=== PATIENT | male | born 1955 | race Caucasian/White ===

== ENCOUNTER 2021-04-06 07:33 | Outpatient (REF) | payer OTHER, SELFPAY ==
[2021-04-06 12:12] LABS: Alanine Aminotransferase 35 U/L (0-40); Albumin Level 4.2 g/dL (3.5-5.0); Alkaline Phosphatase 60 U/L (39-117); Anion Gap 18 (12-20); Aspartate Amino Transferase 31 U/L (5-37); Bilirubin Total 0.6 mg/dL (0.0-1.0); Blood Urea Nitrogen 23 mg/dL (9-16); Calcium 9.3 mg/dL (8.4-10.2); Carbon Dioxide 20 mmol/L (22-29); Chloride 105 mmol/L (96-108); Cholesterol 192 mg/dL; Estimated Glomerular Filt Rate > 60; Glucose Fasting 87 mg/dL (60-99); HDL Cholesterol 71 mg/dL; LDL Cholesterol Calculated 99 mg/dl; Potassium 4.3 mmol/L (3.3-5.1); Prostate Specific Antigen Scr 0.52 ng/mL (<0.05-4.0); Sodium 139 mmol/L (135-145); TSH reflex Free T4 1.18 uIU/mL (0.32-4.0); Total Protein 7.1 g/dL (6.5-8.0); Triglycerides 111 mg/dL
== END 2021-04-06 07:34 | disposition home or self-care (01) ==
LOC: HO.HMGCLDS 07:33
PROVIDERS: PCP Nurse Practitioner Family; Visit Provider Nurse Practitioner Family
DX: Z00.00 Encounter for general adult medical examination without abnormal findings (principal); Z12.5 Encounter for screening for malignant neoplasm of prostate
CPT/HCPCS: 36415; 80053; 80061; 84153; 84443

== ENCOUNTER 2021-10-26 09:45 | Day surgery (SDC) | payer OTHER, SELFPAY ==
[2021-10-20 11:11] VITALS: BMI 25.4
--- NOTE | 2021-10-25 10:55 | HO.ANESPROP2 ---
Documented by User: Charlene Barboza NP 10/25/21 10:57 HPI - Anesthesia Eval Consult details Narrative: 66yo M for Colonoscopy Daily opioids PMFSH Active Problems Active Problems: All Active Problems (Updated 10/25/21 @ 10:01 by Carla Tobin RN) Hyperlipidemia, unspecified (Acute) Jaw pain (Acute) Past Medical History Medical History Anxiety Elevated cholesterol HTN (hypertension) IBS (irritable bowel syndrome) Surgical History Surgical History History of appendectomy Hx of colonoscopy Hx of hand surgery Hx of tonsillectomy Hx of umbilical hernia repair Social History Social History Patient Tobacco Use Status: Former Tobacco user Tobacco use type: Cigarette Years Smoked: 30 Smoked in Last 30 Days: No Use of substances other than those prescribed or required for medical reasons: No Are you DNR?: No Advance Directives: No Advance Directives Information Provided: Yes Meds Allergies Allergy/AdvReac Type Severity Reaction Status Date / Time No Known Allergies Allergy Verified 10/26/21 10:03 Home Medications Medication Instructions Recorded Confirmed Last Taken Type oxycodone 10 mg tablet 10 mg PO BEDTIME 03/24/21 Unknown History loperamide 2 mg capsule mg PO 10/25/21 10/25/21 Unknown History Exam Exam Date and Time: October 25, 2021 1055 Height,Weight and Vital Signs: Height 5 ft 8 in Weight 75.75 kg Pertinent Lab Results Pertinent Lab Results: Laboratory Tests 10/03/18 04/06/21 10:04 07:40 WBC 5.4 Hgb 13.2 L Hct 39.1 L Plt Count 215 Sodium 139 Potassium 4.3 Chloride 105 Carbon Dioxide 20 L BUN 23 H Creatinine 0.98 Assessment and Plan Assessment Anesthesia Assessment: Chart Reviewed Documented by User: Bernice Puente MD 10/26/21 10:32 PMFSH Past Medical History Medical History Anxiety Elevated cholesterol HTN (hypertension) IBS (irritable bowel syndrome) Functional capacity: independent ambulation Family History Family history of problems with anesthesia: No Surgical History Surgical History History of appendectomy Hx of colonoscopy Hx of hand surgery Hx of tonsillectomy Hx of umbilical hernia repair History of Problems with Anesthesia: No Social History Social History Patient Tobacco Use Status: Former Tobacco user Tobacco use type: Cigarette Years Smoked: 30 Smoked in Last 30 Days: No Use of substances other than those prescribed or required for medical reasons: No Are you DNR?: No Advance Directives: No Advance Directives Information Provided: Yes Meds Allergies Allergy/AdvReac Type Severity Reaction Status Date / Time No Known Allergies Allergy Verified 10/26/21 10:03 Home Medications Medication Instructions Recorded Confirmed Last Taken Type oxycodone 10 mg tablet 10 mg PO BEDTIME 03/24/21 Unknown History loperamide 2 mg capsule mg PO 10/25/21 10/25/21 Unknown History Exam Airway Mallampati Class: II TM Dist: >3cm Neck ROM: Full Heart: RRR Lungs: CTA Assessment and Plan Final Anesthetic Review Family History of Problems with Anesthesia: No History of Problems with Anesthesia: No ASA Class: II Final Preanesthetic Review: No Changes in Pt Med Stat, Meds/Allgs Chart Reviewed, Consent Obtained/Reviewed and Anes Risks/Benef Reviewed Patient Risk: Low Procedure Risk: Low Anesthetic Plan Anesthetic Plan: MAC: Disposition: Standard PACU
[2021-10-26 10:04] VITALS: BMI 24.3
[2021-10-26 10:10] VITALS: BP 136/88; PULSE 81; RESP 16; TEMP 37.5; O2SAT 98
[2021-10-26] MEDS: Lactated Ringers 1,000 ML 100 ML IVCONT (10:22)
--- NOTE | 2021-10-26 10:34 | MHC.SHP ---
Pre-Procedural Eval Section A Date of Service: 10/26/21 The patient is an INPATIENT: No Changes since office visit: No Cold of Flu in the past 2 weeks, No New Medical Problems, No Changes in Medication and No Patient answered all questions The History & Physical has been completed within 30 days and I have reviewed it.: Yes Section B Chief Complaint: screening Allergies: Allergies Allergy/AdvReac Type Severity Reaction Status Date / Time No Known Allergies Allergy Verified 10/26/21 10:03 Plan I have reviewed the history and physical and performed a pertinent physical examination on my patient. No changes have occurred unless specified.
--- NOTE | 2021-10-26 10:53 | HO.ANESPROP2 ---
[facility] Active Problems Active Problems: All Active Problems (Updated 10/25/21 @ 10:01 by Carla Tobin RN) Hyperlipidemia, unspecified (Acute) Jaw pain (Acute) Past Medical History Medical History Anxiety Elevated cholesterol HTN (hypertension) IBS (irritable bowel syndrome) Functional capacity: independent ambulation Family History Family history of problems with anesthesia: No Surgical History Surgical History History of appendectomy Hx of colonoscopy Hx of hand surgery Hx of tonsillectomy Hx of umbilical hernia repair History of Problems with Anesthesia: No Social History Social History Patient Tobacco Use Status: Former Tobacco user Tobacco use type: Cigarette Years Smoked: 30 Smoked in Last 30 Days: No Use of substances other than those prescribed or required for medical reasons: No Are you DNR?: No Advance Directives: No Advance Directives Information Provided: Yes Meds Allergies Allergy/AdvReac Type Severity Reaction Status Date / Time No Known Allergies Allergy Verified 10/26/21 10:03 Active Medications: Current Medications Lactated Ringer's (Lr) 1,000 mls @ 100 mls/hr IVCONT .Q10H NEO Last Admin: 10/26/21 10:22 Dose: 100 mls/hr Documented by: Home Medications Medication Instructions Recorded Confirmed Last Taken Type oxycodone 10 mg tablet 10 mg PO BEDTIME 03/24/21 Unknown History loperamide 2 mg capsule mg PO 10/25/21 10/25/21 Unknown History Exam Exam Date and Time: October 26, 2021 1053 Height,Weight and Vital Signs: Height 5 ft 8 in Weight 72.575 kg Last Vital Signs Temp 99.5 F 10/26/21 10:10 Pulse 81 10/26/21 10:10 Resp 16 10/26/21 10:10 BP 136/88 10/26/21 10:10 Pulse Ox 98 10/26/21 10:10 Airway Mallampati Class: II TM Dist: >3cm Denture: Upper Heart: RRR Lungs: CTA Assessment and Plan Final Anesthetic Review Family History of Problems with Anesthesia: No History of Problems with Anesthesia: No ASA Class: II Final Preanesthetic Review: No Changes in Pt Med Stat, Meds/Allgs Chart Reviewed, Consent Obtained/Reviewed and Anes Risks/Benef Reviewed Patient Risk: Low Procedure Risk: Low Anesthetic Plan Anesthetic Plan: MAC: Disposition: Standard PACU
--- NOTE | 2021-10-26 11:18 | P.BOP_ITS ---
Brief Operative Note Date of Service: 10/26/21 Pre-op diagnosis: screening Post-op diagnosis: same (colon polyp) Surgeon: Jose Juarez Anesthesia: MAC Was an Fulfillment Specialist used for this Procedure?: No Estimated blood loss (mL): 2 Pathology: other (polyp 90cm) Condition: stable Disposition: PACU
[2021-10-26 11:22] VITALS: BP 92/58; PULSE 68; RESP 16; TEMP 36.1; O2SAT 96
[2021-10-26 11:40] VITALS: BP 128/74; PULSE 62; RESP 18; TEMP 36.2; O2SAT 97
--- NOTE | 2021-10-26 14:11 | OP_ITS ---
SURGEON: Jose Juarez MD INDICATIONS: Colon cancer screening. PREOPERATIVE DIAGNOSIS: POSTOPERATIVE DIAGNOSIS: PROCEDURE PERFORMED: Colonoscopy to the terminal ileum with snare polypectomy and biopsy. ESTIMATED BLOOD LOSS: COMPLICATIONS: ANESTHESIA: ASSISTANTS: SPECIMENS: MEDICATIONS: Monitored anesthesia care. DESCRIPTION OF PROCEDURE: History and physical performed. The risks and benefits of the procedure were explained to the patient. Informed consent was obtained and the patient placed in left lateral decubitus position. A digital rectal exam was performed and was found to be normal. The Olympus pediatric video colonoscope was introduced into the rectum and advanced to the cecum without difficulty. The cecum was identified by transillumination, palpation, and identification of ileocecal valve. Abdominal wall pressure was used to assist in advancement of the scope due to looping in the sigmoid. Examination was performed. The scope was removed. He tolerated the procedure well and was taken to recovery area in stable condition. FINDINGS: The terminal ileum was examined and appeared normal. The visualized colonic mucosa was normal. The quality of the prep was good at 90 cm from the anal verge, was a polypoid lesion measuring approximately 10 mm. Initially thought to be a lipoma. This was biopsied, but subsequently was snared and completely removed. No other polyps were identified. Retroflexed examination showed small internal hemorrhoids. IMPRESSION: Colon polyp. RECOMMENDATION: Follow up the biopsy results. MD FELY Lynch/SIS / [id number]
== END 2021-10-26 12:22 | disposition home or self-care (01) ==
PROVIDERS: Visit Provider Internal Medicine Gastroenterology
PROC: 0DJD8ZZ Inspection of Lower Intestinal Tract, Via Natural or Artificial Opening Endoscopic (ICD-10-PCS; CPT 45378; principal; 2021-10-26 11:10)
DX: Z12.11 Encounter for screening for malignant neoplasm of colon (principal); Z86.010 Personal history of colon polyps; D12.3 Benign neoplasm of transverse colon; K64.8 Other hemorrhoids; K58.0 Irritable bowel syndrome with diarrhea; I10 Essential (primary) hypertension; E78.00 Pure hypercholesterolemia, unspecified; F41.1 Generalized anxiety disorder; Z79.899 Other long term (current) drug therapy; Z87.891 Personal history of nicotine dependence
CPT/HCPCS: 45385; 45380; 88305

== ENCOUNTER 2022-01-25 08:49 | Outpatient (REF) | payer OTHER, SELFPAY ==
--- NOTE | ~2022-01-25 | XR_ITS ---
EXAMINATION: XR KNEE, RIGHT CLINICAL INFORMATION: Right knee pain COMPARISON: None TECHNIQUE: Four views of the right knee. FINDINGS: Bone alignment is normal. No fracture or dislocation is seen. There are small osteophytes at the medial femoral tibial joint. Joint spaces are otherwise normal. There is no joint effusion. XR/XR knee RT 3V IMPRESSION: Small osteophytes at the medial femoral tibial joint otherwise unremarkable exam.
[2022-01-25 12:09] LABS: HIV AB/AG Nonreactive (Nonreactive); HIV Num 1 0.08 S/CO (0.00-0.99)
[2022-01-25 12:22] LABS: Appearance Urine CLEAR; Color Urine YELLOW; Glucose Urine UA NEG (NEG); Leukocyte Esterase Urine NEG (NEG); Nitrite Urine NEG (NEG); PH 5.5 (5.0-8.0); Specific Gravity - Urine 1.025 (1.005-1.025); Urine Blood NEG (NEG); Urine Ketones NEG (NEG); Urine Protein NEG (NEG-TRACE)
[2022-01-25 13:58] LABS: CT PCR NOT DETECTED (Not Detect.); NG PCR NOT DETECTED (Not Detect.)
[2022-01-25 20:13] LABS: Alanine Aminotransferase 30 U/L (0-40); Alkaline Phosphatase 61 U/L (39-117); Anion Gap 12 (12-20); Aspartate Amino Transferase 26 U/L (5-37); Bilirubin Total 0.7 mg/dL (0.0-1.0); Blood Urea Nitrogen 28 mg/dL (9-16); Calcium 8.9 mg/dL (8.4-10.2); Carbon Dioxide 24 mmol/L (22-29); Chloride 108 mmol/L (96-108); Cholesterol 191 mg/dL; Estimated Glomerular Filt Rate > 60; Glucose Fasting 158 mg/dL (60-99); HDL Cholesterol 70 mg/dL; LDL Cholesterol Calculated 110 mg/dl; Potassium 3.7 mmol/L (3.3-5.1); Sodium 140 mmol/L (135-145); Total Protein 6.9 g/dL (6.5-8.0); Triglycerides 55 mg/dL
[2022-01-25 20:33] LABS: TSH reflex Free T4 1.26 uIU/mL (0.32-4.0)
[2022-01-26 08:13] LABS: Syphilis Screen Nonreactive (Nonreactive)
== END 2022-01-25 08:50 | disposition home or self-care (01) ==
LOC: HO.HMGCX 08:49
PROVIDERS: PCP Nurse Practitioner Family; Visit Provider Nurse Practitioner Family
DX: M25.561 Pain in right knee (principal); R30.0 Dysuria; N53.12 Painful ejaculation; Z12.5 Encounter for screening for malignant neoplasm of prostate
CPT/HCPCS: 73562; 80053; 80061; 81003; 84153; 84443; 86780; 87389; 87491; 87591

== ENCOUNTER 2022-03-03 10:05 | Outpatient (REF) | payer OTHER, SELFPAY ==
[2022-03-03 11:41] LABS: Estimated Average Glucose 111 mg/dL; Hemoglobin A1c % 5.5 %
[2022-03-03 11:46] LABS: Alanine Aminotransferase 33 U/L (0-40); Albumin Level 4.3 g/dL (3.5-5.0); Alkaline Phosphatase 59 U/L (39-117); Anion Gap 13 (12-20); Aspartate Amino Transferase 30 U/L (5-37); Bilirubin Total 0.8 mg/dL (0.0-1.0); Blood Urea Nitrogen 27 mg/dL (9-16); Calcium 9.4 mg/dL (8.4-10.2); Carbon Dioxide 23 mmol/L (22-29); Chloride 107 mmol/L (96-108); Estimated Glomerular Filt Rate > 60; Glucose Fasting 99 mg/dL (60-99); Sodium 139 mmol/L (135-145); Total Protein 7.2 g/dL (6.5-8.0)
== END 2022-03-03 10:06 | disposition home or self-care (01) ==
LOC: HO.HMGCLDS 10:05
PROVIDERS: PCP Nurse Practitioner Family; Visit Provider Nurse Practitioner Family
DX: R73.01 Impaired fasting glucose (principal)
CPT/HCPCS: 36415; 80053; 83036

== ENCOUNTER 2022-10-31 10:21 | Outpatient (REF) | payer OTHER, SELFPAY ==
--- NOTE | ~2022-10-31 | XR_ITS ---
EXAMINATION: XR SHOULDERS, BILATERAL XR AC JOINTS, BILATERAL CLINICAL INFORMATION: Pain. COMPARISON: None. TECHNIQUE: 4 views each shoulder. 2 views bilateral AC joints with and without weights. FINDINGS: Right Shoulder: The glenohumeral and AC joint space is normal. There is superior and inferior AC joint enthesophytes and along the lateral humeral head. No loose bodies or bony erosive changes seen. The cephalic migration of humeral head adjacent to the acromion suspicious for right rotator cuff degeneration or tear. No acute fractures seen. Left Shoulder: There is loss of glenohumeral and AC joint space with mild superior AC joint enthesophytes. No acute fracture or dislocation seen. No bony erosive changes. The soft tissues are normal. Bilateral AC Joint: There is normal symmetry of bilateral AC joints space with periarticular spurring right AC joint. No visible acute fracture, dislocation or subluxation seen. There is no AC separation visualized with and without weights. XR/XR shoulder LT min 2V IMPRESSION: 1. Degenerative arthritic changes bilateral A.C. Joints and glenohumeral joints. No visible acute fracture, dislocation or subluxation seen. 2. There is cephalic migration of right humeral head adjacent to the acromion suspicious for right rotator cuff degeneration or tear.
--- NOTE | ~2022-10-31 | XR_ITS ---
EXAMINATION: XR SHOULDERS, BILATERAL XR AC JOINTS, BILATERAL CLINICAL INFORMATION: Pain. COMPARISON: None. TECHNIQUE: 4 views each shoulder. 2 views bilateral AC joints with and without weights. FINDINGS: Right Shoulder: The glenohumeral and AC joint space is normal. There is superior and inferior AC joint enthesophytes and along the lateral humeral head. No loose bodies or bony erosive changes seen. The cephalic migration of humeral head adjacent to the acromion suspicious for right rotator cuff degeneration or tear. No acute fractures seen. Left Shoulder: There is loss of glenohumeral and AC joint space with mild superior AC joint enthesophytes. No acute fracture or dislocation seen. No bony erosive changes. The soft tissues are normal. Bilateral AC Joint: There is normal symmetry of bilateral AC joints space with periarticular spurring right AC joint. No visible acute fracture, dislocation or subluxation seen. There is no AC separation visualized with and without weights. XR/XR AC joint BI IMPRESSION: 1. Degenerative arthritic changes bilateral A.C. Joints and glenohumeral joints. No visible acute fracture, dislocation or subluxation seen. 2. There is cephalic migration of right humeral head adjacent to the acromion suspicious for right rotator cuff degeneration or tear.
--- NOTE | ~2022-10-31 | XR_ITS ---
EXAMINATION: XR SHOULDERS, BILATERAL XR AC JOINTS, BILATERAL CLINICAL INFORMATION: Pain. COMPARISON: None. TECHNIQUE: 4 views each shoulder. 2 views bilateral AC joints with and without weights. FINDINGS: Right Shoulder: The glenohumeral and AC joint space is normal. There is superior and inferior AC joint enthesophytes and along the lateral humeral head. No loose bodies or bony erosive changes seen. The cephalic migration of humeral head adjacent to the acromion suspicious for right rotator cuff degeneration or tear. No acute fractures seen. Left Shoulder: There is loss of glenohumeral and AC joint space with mild superior AC joint enthesophytes. No acute fracture or dislocation seen. No bony erosive changes. The soft tissues are normal. Bilateral AC Joint: There is normal symmetry of bilateral AC joints space with periarticular spurring right AC joint. No visible acute fracture, dislocation or subluxation seen. There is no AC separation visualized with and without weights. XR/XR shoulder RT min 2V IMPRESSION: 1. Degenerative arthritic changes bilateral A.C. Joints and glenohumeral joints. No visible acute fracture, dislocation or subluxation seen. 2. There is cephalic migration of right humeral head adjacent to the acromion suspicious for right rotator cuff degeneration or tear.
== END 2022-10-31 10:22 | disposition home or self-care (01) ==
LOC: HO.HMGCX 10:21
PROVIDERS: PCP Nurse Practitioner Family; Visit Provider Student in an Organized Health Care Education/Training Program
DX: M25.511 Pain in right shoulder (principal); M25.512 Pain in left shoulder
CPT/HCPCS: 73030; 73050

== ENCOUNTER 2022-11-25 07:49 | Outpatient (REF) | payer OTHER, SELFPAY ==
[2022-11-25 11:24] LABS: MANUAL DIFF FLAG NO
[2022-11-25 11:31] LABS: Basophils Absolute Auto 0.1 X10*3/uL (0.0-0.2); Basophils Percent Auto 0.9 % (0-2); Eosinophils Absolute Auto 0.2 X10*3/uL (0.0-0.4); Eosinophils Percent Auto 3.1 % (0-4); Hematocrit 31.4 % (42.0-52.0); Hemoglobin 10.8 g/dl (14.0-18.0); Imm Gran Abs Auto 0.07 X10*3/uL (0.00-0.03); Imm Gran Pct Auto 1.1 % (0.0-0.4); Lymphocytes Absolute Auto 2.5 X10*3/uL (1.2-4.9); Lymphocytes Percent Auto 39.3 % (20-40); Mean Corpuscular HGB Conc 34.4 g/dl (31.0-36.0); Mean Corpuscular Hemoglobin 31.1 pg (27.0-33.0); Mean Corpuscular Volume 90.5 fL (80.0-98.0); Monocytes Absolute Auto 0.6 X10*3/uL (0.1-1.2); Monocytes Percent Auto 8.8 % (2-11); Neutrophils Percent Auto 46.8 % (45-73); Platelet Count 336 X10*3/uL (160-400); Red Blood Count 3.47 X10*6/uL (4.60-5.80); Red Cell Distribution Width 19.3 % (11.0-16.0); White Blood Count 6.4 X10*3/uL (4.8-10.8)
[2022-11-25 11:49] LABS: Appearance Urine Turbid; Color Urine Yellow; Glucose Urine UA Negative (Negative); Leukocyte Esterase Urine Negative (Negative); Nitrite Urine Negative (Negative); PH 5.5 (5.0-9.0); Specific Gravity - Urine >= 1.030 (1.005-1.025); Urine Blood Negative (Negative); Urine Ketones Negative (Negative); Urine Protein Negative (Neg-Trace)
[2022-11-25 12:22] LABS: Alanine Aminotransferase 51 U/L (0-40); Alkaline Phosphatase 65 U/L (39-117); Anion Gap 13 (12-20); Aspartate Amino Transferase 37 U/L (5-37); Bilirubin Total 0.4 mg/dL (0.0-1.0); Blood Urea Nitrogen 22 mg/dL (9-16); Calcium 8.7 mg/dL (8.4-10.2); Carbon Dioxide 24 mmol/L (22-29); Chloride 109 mmol/L (96-108); Cholesterol 176 mg/dL; Estimated Glomerular Filt Rate > 60; Glucose Fasting 88 mg/dL (60-99); HDL Cholesterol 51 mg/dL; LDL Cholesterol Calculated 90 mg/dl; Potassium 4.1 mmol/L (3.3-5.1); Sodium 142 mmol/L (135-145); Total Protein 6.7 g/dL (6.5-8.0); Triglycerides 175 mg/dL
[2022-11-25 12:39] LABS: Prostate Specific Antigen Scr 0.49 ng/mL (<0.05-4.0); TSH reflex Free T4 1.65 uIU/mL (0.32-4.0)
== END 2022-11-25 07:50 | disposition home or self-care (01) ==
LOC: HO.HMGCLDS 07:49
PROVIDERS: PCP Nurse Practitioner Family; Visit Provider Nurse Practitioner Family
DX: Z00.00 Encounter for general adult medical examination without abnormal findings (principal); Z12.5 Encounter for screening for malignant neoplasm of prostate
CPT/HCPCS: 36415; 80053; 80061; 81003; 84153; 84443; 85025

== ENCOUNTER 2022-12-01 10:21 | Outpatient (REF) | payer OTHER, SELFPAY ==
--- NOTE | ~2022-12-01 | US_ITS ---
EXAMINATION: US ABDOMEN COMPLETE CLINICAL INFORMATION: Abnormal levels of other serum enzymes. COMPARISON: CT abdomen and pelvis with contrast 10/17/2018. TECHNIQUE: Real-time imaging of the abdominal viscera. FINDINGS: PANCREAS: Visualized portions of pancreas are normal in appearance. ABDOMINAL AORTA: The proximal, mid, and distal segments are normal in caliber. INFERIOR VENA CAVA: Visualized portions are normal. LIVER: The liver is normal in size. The liver contour is normal. Parenchymal echogenicity is normal. A few subcentimeter hepatic cysts are noted. There is no intrahepatic biliary duct dilatation seen. GALLBLADDER: The gallbladder is physiologically distended. Subcentimeter gallstone noted. No gallbladder wall thickening or pericholecystic fluid appreciated. COMMON BILE DUCT: Normal in caliber measuring 0.4 cm in diameter. RIGHT KIDNEY: The kidney measures 11.3 cm in maximum dimension. 3.8 cm simple appearing upper pole cyst. No renal calculi or hydronephrosis. LEFT KIDNEY: The kidney measures 10.5 cm in maximum dimension. A few small parapelvic cysts are suspected. No renal calculi or hydronephrosis. SPLEEN: Normal. The spleen measures 10.1 cm in maximum dimension. FREE FLUID: None. US/US abdomen complete IMPRESSION: 1. Cholelithiasis. No other sonographic evidence to suggest acute cholecystitis. 2. Hepatic and bilateral renal cysts.
== END 2022-12-01 10:22 | disposition home or self-care (01) ==
LOC: HO.HMGCX 10:21
PROVIDERS: PCP Nurse Practitioner Family; Visit Provider Nurse Practitioner Family
DX: R74.8 Abnormal levels of other serum enzymes (principal)
CPT/HCPCS: 76700

== ENCOUNTER 2023-01-05 07:02 | Emergency (ER) | payer OTHER, SELFPAY ==
--- NOTE | ~2023-01-05 | XR_ITS ---
EXAMINATION: XR RIBS, RIGHT CLINICAL INFORMATION: Fall. COMPARISON: Chest 10/03/2018 TECHNIQUE: 3 views of the right ribs were obtained. Chest PA 1 view FINDINGS: CHEST: Lungs are clear. No consolidation, pneumothorax, or pleural effusion. The cardiomediastinal silhouette and pulmonary vasculature are normal. RIGHT RIBS: Osseous structures are unremarkable. Ribs are intact. No fractures are identified. XR/XR ribs RT min 3V w CXR1V IMPRESSION: Unremarkable chest examination.
[2023-01-05 07:09] VITALS: BP 176/95; BP 188/100; PULSE 75; PULSE 83; RESP 16; TEMP 37.1; O2SAT 98; BMI 25.7
--- NOTE | 2023-01-05 08:25 | ED.FALL ---
HPI - Fall General Chief Complaint: Fall Stated Complaint: FALL Time Seen by Provider: 01/05/23 07:54 Source: patient, family (Spouse) and EMS Mode of arrival: EMS Limitations: no limitations History of Present Illness HPI Narrative: 67-year-old male was working at his house yesterday he missed step and fell backward landed on his right side of the back after hitting the edge of a stair, patient was feeling severe pain then went to bed woke up this morning with worsening of the pain for more with movement or taking a deep breath, patient declined any head injury, no neck pain, low back pain, no weakness, no numbness, no blood in the urine, no fever or chills. Related Data Home Medications Medication Instructions Recorded Confirmed oxycodone 10 mg tablet 10 mg PO BEDTIME 03/24/21 11/22/22 Previous Rx's Medication Instructions Recorded paroxetine HCl 40 mg tablet 40 mg PO DAILY #90 tabs 09/11/22 simvastatin 20 mg tablet 20 mg PO DAILY #30 tabs 09/11/22 diphenoxylate-atropine 2.5 3 tab PO BID PRN diarrhea 30 days 10/05/22 mg-0.025 mg tablet (Lomotil) #180 tabs lisinopril 20 mg tablet 20 mg PO DAILY #90 tabs 10/05/22 hydrochlorothiazide 25 mg tablet 25 mg PO DAILY #90 tabs 10/12/22 betamethasone dipropionate 0.05 % 1 appl topical DAILY PRN skin 11/23/22 lotion irritation #60 mL loperamide 2 mg capsule 2 mg PO QID PRN for diarrhea 30 12/13/22 days #120 caps oxycodone 5 mg tablet 5 mg PO BID PRN pain #10 tabs 01/05/23 Allergies Allergy/AdvReac Type Severity Reaction Status Date / Time No Known Allergies Allergy Verified 11/22/22 11:56 Review of Systems Review of Systems: All other systems are reviewed and are negative Constitutional: Reports as per HPI and Reports no additional constitutional complaints Eyes: Reports as per HPI and Reports no additional eye complaints Reports system reviewed and no additional complaints, except as documented Cardiovascular: Reports as per HPI and Reports no additional cardiovascular complaints Respiratory: Reports as per HPI and Reports no additional respiratory complaints Gastrointestinal: Reports as per HPI and Reports no additional gastrointestinal complaints Genitourinary: Reports no additional female genitourinary complaints Musculoskeletal: Reports no additional musculoskeletal complaints Skin/Breast: Reports system reviewed and no additional complaints, except as docu Psychiatric: Reports no additional psychiatric complaints Endocrine: Reports no additional endocrine complaints Hematologic/Lymphatic: Reports no additional hematologic/lymphatic complaints Allergic/Immunologic: Reports no additional allergic/immunologic complaints Reports system reviewed and no additional complaints, except as documented and Reports Abnormal speech present PMFSH Past Medical History Medical History Anxiety Elevated cholesterol HTN (hypertension) IBS (irritable bowel syndrome) Surgical History History of appendectomy Hx of colonoscopy Hx of hand surgery Hx of tonsillectomy Hx of umbilical hernia repair Family History Family History Mother Substance use disorder Mental health disorder Sister Mental health disorder Substance use disorder Social History Social History Housing: House Patient Tobacco Use Status: Former Tobacco user Tobacco use type: Cigarette Years Smoked: 30 Smoked in Last 30 Days: No e-Cigarette/Vaping Use: Never Used Second Hand Smoke Exposure: No Use of substances other than those prescribed or required for medical reasons: Yes Substance Use Type: Marijuana Substance Use Frequency: Occasionally Advance Directives: Yes Advance Directives Information Provided: No Advance Directives on File: No service: No Current occupational status: retired Cognitive needs: No Hearing needs: No Vision needs: No Physical Exam Vital Signs: Vital Signs: Last Vital Signs Temp 98.3 F 01/05/23 09:37 Pulse 72 01/05/23 09:37 Resp 14 01/05/23 09:37 BP 120/65 01/05/23 09:37 Pulse Ox 96 01/05/23 09:37 O2 Del Method Room Air 01/05/23 09:37 BMI result Body Mass Index 25.7 Vital signs have been reviewed as appeared to be correct. Blood pressure normal. Heart rate normal. Respiration rate normal. Temperature normal. Oxygen saturation normal. Appearance: Alert. Oriented X3. No acute distress. Head: Normal external exam. Normocephalic. Atraumatic. No Sofia signs noted. No raccoon eyes noted Eyes: PERRLA. EOMI. Conjunctiva and sclera normal. Eyelids normal. ENT: TM's Normal. Pharynx normal. Uvula midline. Moist mucous membranes. No trismus noted. No drooling noted. No muffled voice noted. Neck: Normal inspection. Neck supple. FROM. No adenopathy. Thyroid Normal. No meningeal signs. No neck mass noted. CVS: Normal heart rate and rhythm. Heart sound normal. No murmurs noted. Pulses normal throughout. Respiratory: No respiratory distress. Painless inspiration. Breath sounds normal. No wheezes/rales/rhonchi noted. Chest nontender. No accessory muscle usage noted or decreased air movement noted. Abdomen: Soft and nontender. Bowel sounds normal in all 4 quadrants. No distention noted. No organomegaly noted. No visible injury noted. Back: Right CVA tenderness. Full range of motion noted. Tenderness over the 11th right rib with no step-off or deformity. Skin: Skin warm and dry. Normal skin color. Normal skin turgor. No rashes/lesions/lacerations noted. Extremities: No lower extremity edema. Extremities exhibit normal range of motion. Extremities nontender. Neuro: Oriented X 3. Cranial nerve exam: II-XII are grossly intact No motor deficit. No sensory deficit. Reflexes normal. Course Course Course Narrative: Status post fall yesterday came in with right flank pain, physical exam and x-ray consistent with muscle contusion, no rib fracture, no indication for intra-abdominal bleed bedside ultrasound was confirming no free fluid, stable vital signs. Will discharge. Medications Administered Discontinued Medications Generic Name Dose Route Start Last Admin Trade Name Narcisa PRN Reason Stop Dose Admin Ibuprofen 600 mg 01/05/23 08:24 01/05/23 08:46 Ibuprofen 600 Mg Tablet PO 01/05/23 08:25 600 mg ONCE ONE Administration Oxycodone HCl 10 mg 01/05/23 08:24 01/05/23 08:46 Oxycodone Hcl Immed Release 5 Mg Tablet PO 01/05/23 08:25 10 mg ONCE ONE Administration Medical Decision Making Differential Diagnosis Differential Diagnoses: The differential diagnosis associated with the presentation includes (Muscle contusion, intra-abdominal bleed, renal injury, rib fracture.) Admission/Observation Consideration of admission/observation: Escalation of care including admission/observation considered Lab Data MDM Lab Attestation statement: I reviewed the patient's lab results. Labs: Lab Results 01/05/23 Range/Units 09:05 Urine Color Yellow Urine Appearance Clear Urine pH 5.5 (5.0-9.0) Ur Specific [place] 1.020 (1.005-1.025) Urine Protein Trace (Neg-Trace) mg/dL Urine Glucose (UA) Negative (Negative) mg/dL Urine Ketones Trace (Negative) mg/dL Urine Blood Negative (Negative) Urine Nitrite Negative (Negative) Ur Leukocyte Esterase Negative (Negative) Independent Interpretation I performed an independent interpretation of an: Plain X-Ray (Chest two view: No rib fracture.) Radiology Impression Discussion of test interpretation with radiology: I have reviewed the radiologist's reading. Discharge Plan Discharge Clinical Impression: Abdominal wall contusion Patient Disposition: Home, Self-Care Instructions: Contusion in Adults (ED) Prescriptions: New oxycodone 5 mg tablet 5 mg PO BID PRN (Reason: pain) Qty: 10 0RF Rx Instructions: Partial Fill upon patient request. No Action paroxetine HCl 40 mg tablet 40 mg PO DAILY Qty: 90 1RF simvastatin 20 mg tablet 20 mg PO DAILY Qty: 30 5RF diphenoxylate-atropine [Lomotil] 2.5-0.025 mg tablet 3 tab PO BID PRN (Reason: diarrhea) 30 Days Qty: 180 1RF lisinopril 20 mg tablet 20 mg PO DAILY Qty: 90 2RF hydrochlorothiazide 25 mg tablet 25 mg PO DAILY Qty: 90 0RF loperamide 2 mg capsule 2 mg PO QID PRN (Reason: for diarrhea) 30 Days Qty: 120 1RF oxycodone 10 mg tablet 10 mg PO BEDTIME betamethasone dipropionate 0.05 % lotion 1 appl topical DAILY PRN (Reason: skin irritation) Qty: 60 0RF Referrals: Sunday Noel, [facility] [Primary Care Provider] -
[2023-01-05] MEDS: Ibuprofen 600 MG TABLET PO (08:46)
[2023-01-05] MEDS: oxyCODONE HCl Immed Release 5 MG TABLET 10 MG PO (08:46)
[2023-01-05 09:13] LABS: Appearance Urine Clear; Color Urine Yellow; Glucose Urine UA Negative (Negative); Leukocyte Esterase Urine Negative (Negative); Nitrite Urine Negative (Negative); PH 5.5 (5.0-9.0); Urine Blood Negative (Negative); Urine Ketones Trace mg/dL (Negative); Urine Protein Trace mg/dL (Neg-Trace)
[2023-01-05 09:37] VITALS: BP 120/65; PULSE 72; RESP 14; TEMP 36.8; O2SAT 96
--- NOTE | 2023-01-05 10:24 | PC.NURSE ---
Pt ambulatory /p meds given with decreased pain level. Dr Pitts to bedside for ultrasound exam to assess for bleeding.
== END 2023-01-05 10:31 | disposition home or self-care (01) ==
PROVIDERS: Emergency Provider Emergency Medicine; PCP Nurse Practitioner Family
DX: S30.1XXA Contusion of abdominal wall, initial encounter (principal); R10.30 Lower abdominal pain, unspecified; R07.81 Pleurodynia; W10.9XXA Fall (on) (from) unspecified stairs and steps, initial encounter; Y93.9 Activity, unspecified; Y92.9 Unspecified place or not applicable; Y99.9 Unspecified external cause status; Z79.899 Other long term (current) drug therapy; Z87.891 Personal history of nicotine dependence
CPT/HCPCS: 71101; 81003; 99283; 99284

== ENCOUNTER 2023-01-06 13:02 | Emergency (ER) | payer OTHER, SELFPAY ==
--- NOTE | ~2023-01-06 | CT_ITS ---
EXAMINATION: CT CHEST, ABDOMEN AND PELVIS WITH CONTRAST CLINICAL INFORMATION: Fall 3 days ago. Pain. COMPARISON: Right RIBS 01/05/2023. CT scan abdomen pelvis 10/17/2018 TECHNIQUE: Multidetector volumetric CT imaging of the chest, abdomen and pelvis was obtained after the administration of 50 mL of intravenous Ultravist without immediate adverse reactions. [This CT examination was performed using dose optimization techniques as appropriate, variously including the following: *Automated exposure control *Adjustment of mA and/or kV according to patient size (this includes techniques or standardized protocols for targeted exams where dose is matched to indication/reason for exam; i.e. extremities or head) *Use of iterative reconstruction technique] DLP: 679 mGy-cm. FINDINGS: CT CHEST: Lungs: Linear scarring at lung bases. No acute airspace disease. Central bronchial airways are open. No bronchiectasis. Mediastinum: No mediastinal mass. No hematoma or collection. The heart size is normal. Small volume of coronary calcification. Thyroid is unremarkable Pleura: There is no pleural effusion. No pleural mass or thickening. Axilla: No lymphadenopathy. CT ABDOMEN AND PELVIS: Liver, Gallbladder and Biliary Tree: The liver is normal in size, shape, and attenuation. No focal hepatic lesion or biliary ductal dilatation is present. There is a 1 cm no gallbladder wall thickening or pericholecystic fluid. Gallstone in the gallbladder. Pancreas: No acute change of the pancreas. No mass. No pancreatic duct dilatation. Spleen: Spleen normal in size and contour. No focal lesion. Adrenal Glands: Adrenal glands are normal in size. No focal mass. Kidneys and Ureters: Right kidney: No calculus or hydronephrosis. Exophytic cyst upper pole right kidney measuring 4.2 cm. Small parapelvic cysts No follow-up imaging is recommended for simple renal cyst. Left kidney: Small parapelvic cysts. No follow-up imaging is recommended for simple renal cyst. No renal or ureteral calculus. No hydronephrosis. Bladder: Unremarkable. Gastrointestinal Tract: The small and large bowel are unremarkable. The appendix is surgically absent Mesentery: No focal inflammation. No free fluid. No free air. Abdominal Wall: No significant hernia is appreciated. Lymph Nodes: Normal. Vascular: Vascular calcifications of aorta. No aneurysm. Pelvic Viscera: Prostate measures 3.8 cm. Coarse calcifications in the prostate. Osseous Structures: No acute osseous signal. Multilevel degenerative spondylosis spine. CT/CT abdomen pelvis wo IV con IMPRESSION: 1. No acute abnormality of the chest, abdomen or pelvis. 2. Cholelithiasis.
--- NOTE | 2023-01-06 13:43 | ED_ITS ---
HPI - General Adult General Chief complaint: Back Pain/Injury Stated complaint: Back Pain S/P Fall 01/04/23 Time Seen by Provider: 01/06/23 17:01 Source: patient and family (patient's and daughter) Mode of arrival: ambulatory Limitations: no limitations History of Present Illness HPI narrative: Patient is a 67 year old assigned male at with a history of anemia presenting to the emergency department today with continued back pain. Patient states that 2 days ago, he was working on his house and he missed a step and fell backwards, hitting the right side of his back. Patient states he came here yesterday and was evaluated but only had x-rays done and he is concerned something else is wrong. Patient denies any dizziness, lightheadedness, abdominal pain, nausea, vomiting, fever, chills, blurry vision, double vision, loss of vision, chest pain, difficulty breathing, shortness of breath, night sweats, pain with urination, increased urinary frequency, increased urinary urgency, blood in his urine or stool, syncope or a near syncopal episode, bowel incontinence, bladder incontinence, bowel retention, bladder retention, or any other complaints at this time. Onset (ago): day(s) (3) Location: back Radiation: non-radiation Severity: mild Severity scale (1-10): 3 Quality: aching and dull Pain Consistency: constant Relieving factors: none Exacerbating factors: other (breathing, movement) Associated symptoms: denies other symptoms Treatments prior to arrival: other (pain medication) Related Data Home Medications Medication Instructions Recorded Confirmed oxycodone 10 mg tablet 10 mg PO BEDTIME 03/24/21 11/22/22 Previous Rx's Medication Instructions Recorded paroxetine HCl 40 mg tablet 40 mg PO DAILY #90 tabs 09/11/22 simvastatin 20 mg tablet 20 mg PO DAILY #30 tabs 09/11/22 diphenoxylate-atropine 2.5 3 tab PO BID PRN diarrhea 30 days 10/05/22 mg-0.025 mg tablet (Lomotil) #180 tabs lisinopril 20 mg tablet 20 mg PO DAILY #90 tabs 10/05/22 hydrochlorothiazide 25 mg tablet 25 mg PO DAILY #90 tabs 10/12/22 betamethasone dipropionate 0.05 % 1 appl topical DAILY PRN skin 03/01/23 lotion irritation #60 mL loperamide 2 mg capsule 2 mg PO QID PRN for diarrhea 30 12/13/22 days #120 caps oxycodone 5 mg tablet 5 mg PO BID PRN pain #10 tabs 01/05/23 Allergies Allergy/AdvReac Type Severity Reaction Status Date / Time No Known Allergies Allergy Verified 11/22/22 11:56 Review of Systems Constitutional: Constitutional: Reports no additional constitutional complaints, Denies chills, Denies fever(s) and Denies night sweats Eyes: Eyes: Reports no additional eye complaints, Denies blurry vision, Denies change in vision, Denies diplopia, Denies eye discharge, Denies loss of vision and Denies eye pain ENT: Denies dizziness Cardiovascular: Cardiovascular: Reports no additional cardiovascular complaints, Denies chest pain, Denies lightheadedness, Denies Loss of Consciousness and Denies dyspnea Respiratory: Respiratory: Reports no additional respiratory complaints and Denies dyspnea Gastrointestinal: Gastrointestinal: Reports no additional gastrointestinal complaints, Denies abdominal pain, Denies melena, Denies hematochezia, Denies change in bowel habits and Denies change in stool character Genitourinary: Genitourinary: Reports no additional male genitourinary comp laints, Denies hematuria, Denies oliguria, Denies difficulty urinating, Denies dysuria, Denies urinary frequency, Denies urinary hesitancy, Denies urinary incontinence and Denies urinary urgency Musculoskeletal: Musculoskeletal: Reports no additional musculoskeletal complaints, Reports back pain, Denies numbness and Denies tingling Neurologic: Denies dizziness, Denies loss of vision, Denies numbness and Denies tingling Psychiatric: Psychiatric: Reports no additional psychiatric complaints Endocrine: Endocrine: Reports no additional endocrine complaints Hematologic/Lymphatic: Hematologic/Lymphatic: Reports no additional hematologic/lymphatic complaints Allergic/Immunologic: Allergic/Immunologic: Reports no additional allergic/immunologic complaints PMFSH Past Medical History Attestation statement: The following information was validated with the patient. (all information validated with the patient's and daughter) Source: old records reviewed, obtained from family (patient's and daughter) and nursing notes reviewed Medical History Anxiety Elevated cholesterol HTN (hypertension) IBS (irritable bowel syndrome) Surgical History History of appendectomy Hx of colonoscopy Hx of hand surgery Hx of tonsillectomy Hx of umbilical hernia repair Family History Family History Mother Substance use disorder Mental health disorder Sister Mental health disorder Substance use disorder Social History Social History Housing: House Patient Tobacco Use Status: Former Tobacco user Tobacco use type: Cigarette Years Smoked: 30 e-Cigarette/Vaping Use: Never Used Second Hand Smoke Exposure: No Substance Use Type: Marijuana Advance Directives: No Advance Directives Information Provided: No service: No Current occupational status: retired Cognitive needs: No Hearing needs: No Vision needs: No Physical Exam ED Vital Signs: Vital Signs - 24 hr 01/06/23 13:44 Temperature 97.6 F Pulse Rate 90 Respiratory Rate 18 Blood Pressure 132/76 Pulse Oximetry 96 Oxygen Delivery Method Room Air BMI result Body Mass Index 24.3 Const General: cooperative, no acute distress, alert and awake Nutritional Appearance: well nourished Orientation/consciousness: patient oriented x3 Limitations: no limitations HENMT Head: Yes normal to inspection and Yes atraumatic Ears: hearing grossly normal bilaterally and external ears normal General nose exam: Normal external nose present, no nasal discharge noted and no epistaxis Face and sinus: Yes normal facial exam, No abrasion and No laceration Mouth: Normal oral and palatal mucosa present, no drooling and no muffled voice Eyes General: appearance normal, both eyes and all related structures Periorbital: periorbital findings normal Eyelids: Yes eyelids normal Conjunctivae: conjunctivae normal Pupils: Equal, round and reactive pupils present EOM: EOMs intact bilaterally Neck Neck: Yes normal visual inspection, Yes full ROM and Yes no lymphadenopathy Chest Chest palpation & inspection: normal inspection of the chest Resp Effort & Inspection: normal respiratory effort and able to speak in complete sentences Auscultation: clear to auscultation bilaterally Cardio Rate: regular rate Rhythm: regular rhythm GI Inspection: Yes normal to inspection Palpation (GI): Soft to palpation, not firm, nontender, no guarding and not rigid General: Yes no CVA tenderness Back/Spine/Pelvis Back: no CVA tenderness Cervical Spine: normal cervical lordosis and cervical ROM normal Thoracic/Lumbar Spine: thoraco-lumbar ROM normal Neuro General: patient oriented x3 and moves all extremities Cranial nerves: Yes Equal, round and reactive pupils present Cognition (Neuro): normal cognition Motor exam (neuro): 5/5 motor strength present throughout Sensory Exam: Normal double simultaneous stimulation for sensation Coordination: [id number] test normal Extrem General: Yes normal to inspection, Yes full ROM and Yes capillary refill normal Psych Appearance: grossly normal Mental Status: mental status grossly normal Affect: normal affect Attitude: cooperative Thought process: Normal thought process present Thought content: Normal thought content present Insight: Good insight present (Psych) Course Course Course Narrative: RME performed by Meaghan Farris PA-C. Patient is a 67 year old assigned male at presenting to the emergency department with continued back pain. Patient states that a couple days ago he fell, and is having back pain. Patient states that he was seen yesterday and had XRs done but it hasn't gotten better. Labs and imaging ordered. Patient placed back in the waiting room pending room availability and results. Medical Decision Making Medical Decision Making [facility] Narrative: Patient is a 67 year old assigned male at with a history of anemia presenting to the emergency department today with right sided back pain. Patient's physical exam was unremarkable. Patient's blood work was unremarkable. Patient's chest and abdomen/pelvis CT showed no acute process however, the abdominal CT did show a mild amount of stool present. I explained my physical exam findings as well as all test results to the patient, the patient's , and the patient's daughter. I answered all questions asked by the patient, the patient's daughter, and the patient's . I stressed the importance of the patient taking his medication as prescribed. I stressed the importance of the patient following up with his primary care provider. I stressed the importance of the patient returning to the emergency department immediately if his symptoms were to worsen or if he were to develop any dizziness, shortness of breath, difficulty breathing, chest pain, blurry vision, loss of vision, nausea, vomiting, abdominal pain, fever, chills, or any other complaints. Patient, the patient's , and the patient's daughter verbalized agreement and understanding with this treatment plan and discharge. Differential Diagnosis Differential Diagnoses: The differential diagnosis associated with the presentation includes contusion, constipation Lab Data MDM Lab Attestation statement: I reviewed the patient's lab results. 01/06/23 14:21 01/06/23 14:21 Labs: Lab Results 01/06/23 01/06/23 Range/Units 14:21 14:21 WBC 7.2 (4.8-10.8) X10*3/uL RBC 3.63 L (4.60-5.80) X10*6/uL Hgb 11.0 L (14.0-18.0) g/dl Hct 32.4 L (42.0-52.0) % MCV 89.3 (80.0-98.0) fL MCH 30.3 (27.0-33.0) pg MCHC 34.0 (31.0-36.0) g/dl RDW 19.9 H (11.0-16.0) % Plt Count 269 (160-400) X10*3/uL MPV 10.1 (9.4-12.4) fL Immature Gran % (Auto) 0.6 H (0.0-0.4) % Neut % (Auto) 62.9 (45-73) % Lymph % (Auto) 23.5 (20-40) % [place] % (Auto) 10.7 (2-11) % Eos % (Auto) 1.7 (0-4) % Baso % (Auto) 0.6 (0-2) % Lymph # (Auto) 1.7 (1.2-4.9) X10*3/uL [place] # (Auto) 0.8 (0.1-1.2) X10*3/uL Eos # (Auto) 0.1 (0.0-0.4) X10*3/uL Baso # (Auto) 0.0 (0.0-0.2) X10*3/uL Abs Immat Gran (auto) 0.04 H (0.00-0.03) X10*3/uL Absolute Neuts (auto) 4.5 (2.0-8.3) x10*3/uL Absolute Nucleated RBC 0.000 (0.0-0.012) X10*3/uL Nucleated RBC % (auto) 0.0 (0.0-0.2) /100WBC Sodium 141 (135-145) mmol/L Potassium 3.8 (3.3-5.1) mmol/L Chloride 108 (96-108) mmol/L Carbon Dioxide 22 (22-29) mmol/L Anion Gap 15 (12-20) BUN 24 H (9-16) mg/dL Creatinine 1.13 (0.5-1.4) mg/dL Estim Creat Clear Calc 59.3 Estimated GFR > 60 Random Glucose 115 (60-115) mg/dL Calcium 9.3 D (8.4-10.2) mg/dL Magnesium 2.0 (1.6-2.6) mg/dL Total Bilirubin 0.7 (0.0-1.0) mg/dL AST 21 (5-37) U/L ALT 23 (0-40) U/L Alkaline Phosphatase 61 (39-117) U/L Total Protein 7.2 (6.5-8.0) g/dL Albumin 4.4 (3.5-5.0) g/dL Independent Interpretation I performed an independent interpretation of an: CT Scan Interpretation: My interpretation is in agreement with the radiologist's impression of these imaging studies. ----- EXAMINATION: CT CHEST, ABDOMEN AND PELVIS WITH CONTRAST CLINICAL INFORMATION: Fall 3 days ago. Pain.? COMPARISON: Right RIBS 01/05/2023. CT scan abdomen pelvis 10/17/2018? TECHNIQUE: Multidetector volumetric CT imaging of the chest, abdomen and pelvis was obtained after the administration of 50 mL of intravenous Ultravist without immediate adverse reactions.? [This CT examination was performed using dose optimization techniques as appropriate, variously including the following: *Automated exposure control *Adjustment of mA and/or kV according to patient size (this includes techniques or standardized protocols for targeted exams where dose is matched to indication/reason for exam; i.e. extremities or head) *Use of iterative reconstruction technique] DLP: 679 mGy-cm. FINDINGS: CT CHEST: Lungs: Linear scarring at lung bases. No acute airspace disease. Central bronchial airways are open. No bronchiectasis.? Mediastinum: No mediastinal mass. No hematoma or collection. The heart size is normal. Small volume of coronary calcification. Thyroid is unremarkable? Pleura: There is no pleural effusion. No pleural mass or thickening.? Axilla: No lymphadenopathy.? CT ABDOMEN AND PELVIS: Liver, Gallbladder and Biliary Tree: The liver is normal in size, shape, and attenuation. No focal hepatic lesion or biliary ductal dilatation is present. There is a 1 cm no gallbladder wall thickening or pericholecystic fluid. Gallstone in the gallbladder.? Pancreas: No acute change of the pancreas. No mass. No pancreatic duct dilatation.? Spleen: Spleen normal in size and contour. No focal lesion.? Adrenal Glands: Adrenal glands are normal in size. No focal mass.? Kidneys and Ureters: Right kidney: No calculus or hydronephrosis. Exophytic cyst upper pole right kidney measuring 4.2 cm. Small parapelvic cysts No follow-up imaging is recommended for simple renal cyst. Left kidney: Small parapelvic cysts. No follow-up imaging is recommended for simple renal cyst. No renal or ureteral calculus. No hydronephrosis. Bladder: Unremarkable.? Gastrointestinal Tract: The small and large bowel are unremarkable. The appendix is surgically absent Mesentery: No focal inflammation. No free fluid. No free air. Abdominal Wall: No significant hernia is appreciated.? Lymph Nodes: Normal. Vascular: Vascular calcifications of aorta. No aneurysm. Pelvic Viscera: Prostate measures 3.8 cm. Coarse calcifications in the prostate.? Osseous Structures: No acute osseous signal. Multilevel degenerative spondylosis spine.? CT/CT abdomen pelvis wo IV con IMPRESSION: 1.? No acute abnormality of the chest, abdomen or pelvis. 2.? Cholelithiasis. Dictated By: Shayan Renteria MD Signed By: Electronically signed by Shayan Renteria MD 01/06/23 [id number] Independent Historian Clinical information obtained from an independent historian. History obtained from or confirmed by: Spouse (patient's ) and Other (patient's daughter) Discharge Plan Discharge Clinical Impression: Constipation, Back pain Patient Disposition: Home, Self-Care Instructions: Constipation (DC), Back Pain (ED) Additional Instructions: Follow up with your primary care provider. Return to the emergency department immediately if your symptoms worsen or if you develop any dizziness, shortness of breath, difficulty breathing, chest pain, blurry vision, loss of vision, nausea, vomiting, abdominal pain, fever, chills, back pain, or any other complaints. Prescriptions: No Action paroxetine HCl 40 mg tablet 40 mg PO DAILY Qty: 90 1RF simvastatin 20 mg tablet 20 mg PO DAILY Qty: 30 5RF diphenoxylate-atropine [Lomotil] 2.5-0.025 mg tablet 3 tab PO BID PRN (Reason: diarrhea) 30 Days Qty: 180 1RF lisinopril 20 mg tablet 20 mg PO DAILY Qty: 90 2RF hydrochlorothiazide 25 mg tablet 25 mg PO DAILY Qty: 90 0RF loperamide 2 mg capsule 2 mg PO QID PRN (Reason: for diarrhea) 30 Days Qty: 120 1RF oxycodone 5 mg tablet 5 mg PO BID PRN (Reason: pain) Qty: 10 0RF Rx Instructions: Partial Fill upon patient request. oxycodone 10 mg tablet 10 mg PO BEDTIME betamethasone dipropionate 0.05 % lotion 1 appl topical DAILY PRN (Reason: skin irritation) Qty: 60 0RF Referrals: Sunday Noel, [facility] [Primary Care Provider] - Interventions: ED Discharge Assessment Last Done: 01/06/23 17:12 Print Language: [place]
[2023-01-06 13:44] VITALS: BP 132/76; PULSE 90; RESP 18; TEMP 36.4; O2SAT 96; BMI 24.3
[2023-01-06 14:27] LABS: MANUAL DIFF FLAG NO
[2023-01-06 14:31] LABS: Basophils Percent Auto 0.6 % (0-2); Eosinophils Absolute Auto 0.1 X10*3/uL (0.0-0.4); Eosinophils Percent Auto 1.7 % (0-4); Hematocrit 32.4 % (42.0-52.0); Imm Gran Abs Auto 0.04 X10*3/uL (0.00-0.03); Imm Gran Pct Auto 0.6 % (0.0-0.4); Lymphocytes Absolute Auto 1.7 X10*3/uL (1.2-4.9); Lymphocytes Percent Auto 23.5 % (20-40); Mean Corpuscular Hemoglobin 30.3 pg (27.0-33.0); Mean Corpuscular Volume 89.3 fL (80.0-98.0); Mean Platelet Volume 10.1 fL (9.4-12.4); Monocytes Absolute Auto 0.8 X10*3/uL (0.1-1.2); Monocytes Percent Auto 10.7 % (2-11); Neutrophils Absolute Auto 4.5 x10*3/uL (2.0-8.3); Neutrophils Percent Auto 62.9 % (45-73); Platelet Count 269 X10*3/uL (160-400); Red Blood Count 3.63 X10*6/uL (4.60-5.80); Red Cell Distribution Width 19.9 % (11.0-16.0); White Blood Count 7.2 X10*3/uL (4.8-10.8)
[2023-01-06 14:45] LABS: Alanine Aminotransferase 23 U/L (0-40); Albumin Level 4.4 g/dL (3.5-5.0); Alkaline Phosphatase 61 U/L (39-117); Anion Gap 15 (12-20); Aspartate Amino Transferase 21 U/L (5-37); Bilirubin Total 0.7 mg/dL (0.0-1.0); Blood Urea Nitrogen 24 mg/dL (9-16); Calcium 9.3 mg/dL (8.4-10.2); Carbon Dioxide 22 mmol/L (22-29); Chloride 108 mmol/L (96-108); Creatinine Clr Calc Pharmacy 59.3; Estimated Glomerular Filt Rate > 60; Glucose Random 115 mg/dL (60-115); Potassium 3.8 mmol/L (3.3-5.1); Sodium 141 mmol/L (135-145); Total Protein 7.2 g/dL (6.5-8.0)
== END 2023-01-06 17:40 | disposition home or self-care (01) ==
LOC: HO.ED 17:14
PROVIDERS: Physician Assistant Medical; Emergency Provider Emergency Medicine; PCP Nurse Practitioner Family
DX: K59.00 Constipation, unspecified (principal); M54.9 Dorsalgia, unspecified; E78.5 Hyperlipidemia, unspecified; I10 Essential (primary) hypertension; F12.90 Cannabis use, unspecified, uncomplicated; Z87.891 Personal history of nicotine dependence; Z79.02 Long term (current) use of antithrombotics/antiplatelets; Z79.899 Other long term (current) drug therapy
CPT/HCPCS: 36415; 71250; 74176; 80053; 83735; 85025; 99282; 99284

== ENCOUNTER 2023-05-08 07:46 | Outpatient (REF) | payer OTHER, SELFPAY ==
[2023-05-08 12:20] LABS: Immature Retic Fraction 25.1 % (2.3-13.4); Retic HGB Equivalent 35.6 pg (30.0-35.0); Reticulocyte Percent 2.1 % (0.5-1.8); Reticulocytes Absolute 0.069 X10*6/uL (0.026-0.095)
[2023-05-08 12:57] LABS: Ferritin 408 ng/mL (20-250); Iron 162 mcg/dL (45-160); Percent Iron Saturation 64 % (15-50); Total Iron Binding Capacity 255 mcg/dL (228-428); Unsaturated Iron Binding 93 ug/dL
[2023-05-08 13:17] LABS: Folate 15.1 ng/mL (> or = 4.0); Vitamin B12 573 pg/mL (200-900)
[2023-05-09 05:10] LABS: HBS Num1 0.31 mIU/mL (0-7.99); HBc Num1 0.13 S/CO (0.00-0.79); HBsAGNum1 0.41 S/CO (0.00-0.99); Hepatitis A Antibody IgM 0.17 Index (0-0.79); Hepatitis B Core Antibody Nonreactive (Nonreactive); Hepatitis B Surface Antigen Negative (Negative); ~HepC Num1 0.06 S/CO (0.00-0.79); ~Hepatitis A Antibody IgM Nonreactive (Nonreactive); ~Hepatitis B Surface Antibody NONREACTIVE (Nonreactive); ~Hepatitis C Antibody Nonreactive (Nonreactive)
[2023-05-11 17:54] LABS: Hematocrit 30.7 % (38.5-50.0); Hemoglobin 10.3 g/dL (13.2-17.1); MCH 31.1 pg (27.0-33.0); MCV 92.7 fL (80.0-100.0); RBC 3.31 Million/uL (4.20-5.80); RDW 20.1 % (11.0-15.0)
== END 2023-05-08 07:47 | disposition home or self-care (01) ==
LOC: HO.HMGCLDS 07:46
PROVIDERS: PCP Nurse Practitioner Family; Visit Provider Nurse Practitioner Family
DX: D64.9 Anemia, unspecified (principal); R74.8 Abnormal levels of other serum enzymes
CPT/HCPCS: 36415; 82607; 82728; 82746; 83020; 83540; 85014; 85018; 85041; 85045; 86704; 86706; 86709; 86803; 87340

== ENCOUNTER 2023-05-23 | Outpatient (REF) | payer OTHER, SELFPAY ==
[2023-05-23 14:07] LABS: FIT Int Ctl YES; FIT1 NEGATIVE (NEGATIVE); FIT2 NEGATIVE (NEGATIVE)
== END 2023-05-23 00:01 | disposition home or self-care (01) ==
LOC: HO.HMGCLNP
PROVIDERS: PCP Nurse Practitioner Family; Visit Provider Nurse Practitioner Family
DX: D64.9 Anemia, unspecified (principal)
CPT/HCPCS: 82274

== ENCOUNTER 2023-06-19 08:00 | Outpatient (REF) | payer OTHER, SELFPAY ==
[2023-06-19 11:57] LABS: MANUAL DIFF FLAG NO
[2023-06-19 12:08] LABS: Basophils Absolute Auto 0.1 X10*3/uL (0.0-0.2); Basophils Percent Auto 0.8 % (0-2); Eosinophils Absolute Auto 0.2 X10*3/uL (0.0-0.4); Eosinophils Percent Auto 2.4 % (0-4); Hematocrit 31.2 % (42.0-52.0); Hemoglobin 10.3 g/dl (14.0-18.0); Imm Gran Abs Auto 0.03 X10*3/uL (0.00-0.03); Imm Gran Pct Auto 0.5 % (0.0-0.4); Lymphocytes Absolute Auto 1.9 X10*3/uL (1.2-4.9); Mean Corpuscular Hemoglobin 30.6 pg (27.0-33.0); Mean Corpuscular Volume 92.6 fL (80.0-98.0); Mean Platelet Volume 11.1 fL (9.4-12.4); Monocytes Percent Auto 16.3 % (2-11); Neutrophils Absolute Auto 3.1 x10*3/uL (2.0-8.3); Platelet Count 265 X10*3/uL (160-400); Red Blood Count 3.37 X10*6/uL (4.60-5.80); Red Cell Distribution Width 21.1 % (11.0-16.0); White Blood Count 6.2 X10*3/uL (4.8-10.8)
== END 2023-06-19 08:01 | disposition home or self-care (01) ==
LOC: HO.HMGCLDS 08:00
PROVIDERS: PCP Nurse Practitioner Family; Visit Provider Nurse Practitioner Family
DX: D64.9 Anemia, unspecified (principal)
CPT/HCPCS: 36415; 85025

== ENCOUNTER 2023-06-20 13:54 | Outpatient (REF) | payer OTHER, SELFPAY ==
--- NOTE | ~2023-06-20 | XR_ITS ---
EXAMINATION: XR CHEST CLINICAL INFORMATION: Abnormal weight loss. COMPARISON: 10/03/2018. TECHNIQUE: 2 views of the chest were obtained. FINDINGS: The cardiomediastinal silhouette is stable. There is no focal lung consolidation or evidence for significant pleural effusion. The bony structures and soft tissues are unremarkable. XR/XR chest 2V IMPRESSION: No active cardiopulmonary disease.
[2023-06-20 16:19] LABS: MANUAL DIFF FLAG NO
[2023-06-20 16:33] LABS: Basophils Percent Auto 0.4 % (0-2); Eosinophils Absolute Auto 0.1 X10*3/uL (0.0-0.4); Eosinophils Percent Auto 0.9 % (0-4); Hematocrit 30.4 % (42.0-52.0); Hemoglobin 10.5 g/dl (14.0-18.0); Imm Gran Abs Auto 0.04 X10*3/uL (0.00-0.03); Imm Gran Pct Auto 0.4 % (0.0-0.4); Lymphocytes Absolute Auto 1.6 X10*3/uL (1.2-4.9); Lymphocytes Percent Auto 17.9 % (20-40); Mean Corpuscular HGB Conc 34.5 g/dl (31.0-36.0); Mean Corpuscular Hemoglobin 31.5 pg (27.0-33.0); Mean Corpuscular Volume 91.3 fL (80.0-98.0); Mean Platelet Volume 10.6 fL (9.4-12.4); Monocytes Absolute Auto 1.4 X10*3/uL (0.1-1.2); Monocytes Percent Auto 15.3 % (2-11); Neutrophils Absolute Auto 5.8 x10*3/uL (2.0-8.3); Neutrophils Percent Auto 65.1 % (45-73); Platelet Count 266 X10*3/uL (160-400); Red Blood Count 3.33 X10*6/uL (4.60-5.80); Red Cell Distribution Width 21.1 % (11.0-16.0); White Blood Count 8.9 X10*3/uL (4.8-10.8)
[2023-06-20 17:11] LABS: Alanine Aminotransferase 19 U/L (0-40); Alkaline Phosphatase 72 U/L (39-117); Anion Gap 12 (12-20); Aspartate Amino Transferase 21 U/L (5-37); Bilirubin Total 0.4 mg/dL (0.0-1.0); Blood Urea Nitrogen 23 mg/dL (9-16); C Reactive Protein 1.11 mg/dL (< or = 0.50); Calcium 9.1 mg/dL (8.4-10.2); Carbon Dioxide 26 mmol/L (22-29); Chloride 108 mmol/L (96-108); Estimated Glomerular Filt Rate > 60; Glucose Random 122 mg/dL (60-115); Lactate Dehydrogenase 202 U/L (118-273); Potassium 3.5 mmol/L (3.3-5.1); Sodium 142 mmol/L (135-145); Total Protein 7.1 g/dL (6.5-8.0)
[2023-06-20 17:20] LABS: Appearance Urine Clear; Color Urine Yellow; Glucose Urine UA Negative (Negative); Leukocyte Esterase Urine Negative (Negative); Nitrite Urine Negative (Negative); PH 5.5 (5.0-9.0); Specific Gravity - Urine 1.025 (1.005-1.025); Urine Blood Negative (Negative); Urine Ketones Negative (Negative); Urine Protein Negative (Neg-Trace)
[2023-06-20 17:22] LABS: TSH reflex Free T4 1.15 uIU/mL (0.32-4.0)
[2023-06-20 18:07] LABS: Erythrocyte Sedimentation Rate 34 MM/HR (0-15)
[2023-06-21 04:14] LABS: HBS Num1 0.02 mIU/mL (0-7.99); HBc Num1 0.16 S/CO (0.00-0.79); HBsAGNum1 0.39 S/CO (0.00-0.99); HIV AB/AG Nonreactive (Nonreactive); HIV Num 1 0.06 S/CO (0.00-0.99); Hepatitis A Antibody IgM 0.17 Index (0-0.79); Hepatitis B Core Antibody Nonreactive (Nonreactive); Hepatitis B Surface Antigen Negative (Negative); ~HepC Num1 0.06 S/CO (0.00-0.79); ~Hepatitis A Antibody IgM Nonreactive (Nonreactive); ~Hepatitis B Surface Antibody NONREACTIVE (Nonreactive); ~Hepatitis C Antibody Nonreactive (Nonreactive)
[2023-06-22 13:04] LABS: Prot Elec - Albumin 3.9 g/dL (3.8-4.8); Prot Elec - Alpha1 0.3 g/dL (0.2-0.3); Prot Elec - Alpha2 0.7 g/dL (0.5-0.9); Prot Elec - Beta 1 0.4 g/dL (0.4-0.6); Prot Elec - Beta 2 0.4 g/dL (0.2-0.5); Prot Elec - Total Protein 6.6 g/dL (6.1-8.1)
[2023-06-22 19:09] LABS: Transglutaminase IgA <1.0 U/mL
[2023-06-23 10:39] LABS: IgA 278 mg/dL (70-320); IgG 1172 mg/dL (600-1540); IgM 56 mg/dL (50-300)
== END 2023-06-20 13:55 | disposition home or self-care (01) ==
LOC: HO.HMGCX 13:54
PROVIDERS: PCP Nurse Practitioner Family; Visit Provider Nurse Practitioner Family
DX: Z11.4 Encounter for screening for human immunodeficiency virus [HIV] (principal); R63.4 Abnormal weight loss
CPT/HCPCS: 36415; 71046; 80053; 81003; 82784; 83615; 84165; 84443; 85025; 85652; 86140; 86334; 86364; 86704; 86706; 86709; 86803; 87340; 87389

== ENCOUNTER 2023-08-10 08:51 | Outpatient (AMB) | payer OTHER, SELFPAY ==
--- NOTE | 2023-08-10 08:56 | A.OFFPC_ITS ---
Vital Signs 08/10/23 09:00 Height 5 ft 7 in Weight 161 lb BMI 25.2 BP 130/70 Blood Pressure Location Rt brachial Position Sitting Pulse 83 Pulse Source Pulse Oximeter Pulse Oximetry (%) 97 Oxygen Delivery Method Room Air Intake Visit Reasons: HGB follow up Intake Note: Pt is her today to f/u for his HGB Allergies No Known Allergies Allergy (Verified 08/10/23 08:57) Tobacco use date assessed: 08/10/23 Fall risk assessment: 1 Fall in past year Last assessed Fall Risk: 08/10/23 Dental Screening Dental Screen Date: 08/10/23 Did you have a dental visit in the last 12 months?: No Was dental information given to patient?: Patient declined HPI HPI Comments History of Present Illness Details The patient is a 67-year-old male in today to recheck his labs, specifically his cbc and total iron. He has a past medical history significant for IBS, and anemia. At the time of appointment the patient has no chief complaint. He denies any episodes of lethargy, dizziness, weakness, or shortness of breath. [facility] Medical History Anxiety Elevated cholesterol HTN (hypertension) IBS (irritable bowel syndrome) Surgical History History of appendectomy Hx of colonoscopy Hx of hand surgery Hx of tonsillectomy Hx of umbilical hernia repair Family History Mother Substance use disorder Mental health disorder Sister Mental health disorder Substance use disorder Social History Housing: House Patient Tobacco Use Status: Former Tobacco user Tobacco use type: Cigarette Years Smoked: 30 e-Cigarette/Vaping Use: Never Used Second Hand Smoke Exposure: No Substance Use Type: Marijuana service: No Current occupational status: retired Cognitive needs: No Hearing needs: No Vision needs: No Questionnaire Thrive Questionnaire Date Thrive assessed: 11/22/22 MARJORIE-7 AMB Questionnaire MARJORIE-7 Date MARJORIE - 7 assessed: 11/22/22 Source: Developed by Drs. Byron Garcia, Alpa Quijano, Garett Porras and colleagues, with an educational scar from [employer]. Review of Systems Const All systems reviewed & are unremarkable except as noted in HPI and below Denies chills, Denies fatigue, Denies fever(s), Denies lethargy and Denies weakness Eyes Denies change in vision ENT Denies dizziness Card Denies chest pain and Denies dyspnea Resp Denies dyspnea GI Reports dyspepsia, Reports diarrhea and Reports loose stools Musc Denies tingling Neuro Denies dizziness, Denies tingling and Denies weakness Endo Denies fatigue Physical exam (Primary Care) Vital Signs: Last Vital Signs Pulse 83 08/10/23 09:00 BP 130/70 08/10/23 09:00 Pulse Ox 97 08/10/23 09:00 Oxygen Delivery Method Room Air 08/10/23 09:00 Care Plan Goal for BP management: Vital signs reviewed and are stable BMI result Body Mass Index 25.2 Tobacco/Smoking Status: Tobacco use Status Tobacco use date assessed 08/10/23 08/10/23 08:58 Patient Tobacco Use Status Former Tobacco user 08/10/23 08:58 Tobacco use type Cigarette 08/10/23 08:58 e-Cigarette/Vaping Use Never Used 08/10/23 08:58 Thrive Assessment: Date of Thrive Assessment Date Thrive assessed 11/22/22 08/10/23 08:58 Const General: cooperative, healthy appearing and no acute distress Nutritional Appearance: average body habitus Orientation/consciousness: patient oriented x3 Limitations: no limitations Eyes General: appearance normal, both eyes and all related structures Conjunctivae: conjunctivae normal Sclerae: sclerae normal Neck Neck: Yes normal visual inspection and Yes no lymphadenopathy Resp Effort & Inspection: able to speak in complete sentences Auscultation: clear to auscultation bilaterally Cardio Rate: regular rate Rhythm: regular rhythm Heart sounds: S1 normal heart sound present and S2 normal heart sound present GI Palpation (GI): Soft to palpation Neuro General: patient oriented x3 Psych Affect: normal affect Attitude: cooperative Thought content: Normal thought content present Insight: Good insight present (Psych) Results Reviewed Results Reviewed: Patient is getting CBC and iron lab draw. Will call patient with results. Assessment and Plan Assessment & Plan (1) Anemia: Comment: The patient is here to reassess his hemoglobin lab levels. He has no symptoms at this time. Will get back to patient with results. Code(s): D64.9 - Anemia, unspecified Qualifiers: Anemia type: iron deficiency Iron deficiency anemia type: unspecified iron deficiency Qualified Code(s): D50.9 - Iron deficiency anemia, unspecified Plan Noticed that the patient has been taking Lomotil 3 tablets b.i.d. patient states that he is going on vacation and is going to run out of this medication, asking for refill. Noticed that the patient is not being followed by GI, will recommend GI referral. Medications: Refilled diphenoxylate-atropine 2.5-0.025 mg (Lomotil) 3 tabs PO BID PRN 180 tabs 0RF diarrhea 30 days Coding Level of Care Code Est Pt Level 3 (96887) Diagnoses Iron deficiency anemia, unspecified iron deficiency anemia type D50.9 Anemia type: iron deficiency Iron deficiency anemia type: unspecified iron deficiency Time Spent (min) 25
[2023-08-10 09:00] VITALS: BP 130/70; PULSE 83; O2SAT 97; BMI 25.2
== END 2023-08-10 10:36 | disposition home or self-care (01) ==
PROVIDERS: PCP Nurse Practitioner Family; Visit Provider Nurse Practitioner Primary Care
DX: D50.9 Iron deficiency anemia, unspecified (principal)
CPT/HCPCS: 99499

== ENCOUNTER 2023-08-10 09:22 | Outpatient (REF) | payer OTHER, SELFPAY ==
[2023-08-10 11:12] LABS: MANUAL DIFF FLAG NO
[2023-08-10 11:17] LABS: Basophils Absolute Auto 0.1 X10*3/uL (0.0-0.2); Eosinophils Absolute Auto 0.1 X10*3/uL (0.0-0.4); Eosinophils Percent Auto 1.9 % (0-4); Hematocrit 29.1 % (42.0-52.0); Hemoglobin 9.5 g/dl (14.0-18.0); Imm Gran Abs Auto 0.03 X10*3/uL (0.00-0.03); Imm Gran Pct Auto 0.5 % (0.0-0.4); Lymphocytes Absolute Auto 2.1 X10*3/uL (1.2-4.9); Lymphocytes Percent Auto 37.4 % (20-40); Mean Corpuscular HGB Conc 32.6 g/dl (31.0-36.0); Mean Corpuscular Volume 91.8 fL (80.0-98.0); Mean Platelet Volume 11.8 fL (9.4-12.4); Monocytes Absolute Auto 0.7 X10*3/uL (0.1-1.2); Monocytes Percent Auto 12.2 % (2-11); Neutrophils Absolute Auto 2.7 x10*3/uL (2.0-8.3); Platelet Count 248 X10*3/uL (160-400); Red Blood Count 3.17 X10*6/uL (4.60-5.80); Red Cell Distribution Width 21.1 % (11.0-16.0); White Blood Count 5.7 X10*3/uL (4.8-10.8)
[2023-08-10 11:28] LABS: Iron 126 mcg/dL (45-160); Percent Iron Saturation 57 % (15-50); Total Iron Binding Capacity 223 mcg/dL (228-428); Unsaturated Iron Binding 97 ug/dL
== END 2023-08-10 09:23 | disposition home or self-care (01) ==
LOC: HO.HMGCLDS 09:22
PROVIDERS: PCP Internal Medicine; Visit Provider Internal Medicine
DX: D64.9 Anemia, unspecified (principal)
CPT/HCPCS: 36415; 83540; 85025

== ENCOUNTER → 2023-10-02 08:27 | Outpatient (BNV) | payer OTHER, SELFPAY | PROVIDERS: PCP Nurse Practitioner Family; Visit Provider Internal Medicine Medical Oncology | DX: D64.9 Anemia, unspecified (principal) | CPT/HCPCS: 99204; 99213 ==

== ENCOUNTER 2023-10-26 11:10 | Day surgery (SDC) | payer OTHER, SELFPAY ==
--- NOTE | ~2023-10-26 | CT_ITS ---
Anemia PROCEDURES: 1. Limited preprocedure CT of the pelvis. Permanent images saved in PACS. 2. 11 g bone marrow core biopsy of the right posterior iliac spine 3. 11 g bone marrow aspirate of the right posterior iliac spine CLINICIANS: Emerson Oreilly PA-C MEDICATIONS: -Versed 1.5 mg, Fentanyl 75 mcg, and lidocaine 1% 10 mL SQ -Antibiotics: None -For additional details, please see nursing flowsheet. COMPLICATIONS: None ESTIMATED BLOOD LOSS: < 5 ml CONTRAST: None SPECIMENS: 11 g core placed in formalin. Bone marrow aspirate placed in EDTA and sodium heparin tubes MODERATE SEDATION TIME: 21 min PROCEDURE NOTE: The procedure, risks, benefits, and alternatives were carefully explained to the patient and written informed consent was obtained. The patient was placed prone on the CT table. A timeout was performed. A limited CT of the pelvis was performed to localize posterior iliac spine and choose appropriate needle entry and trajectory. The patient was prepped and draped in usual sterile fashion. The skin, subcutaneous tissues, and periosteum were anesthetized with lidocaine. Under CT guidance, an 11-gauge bone marrow biopsy needle was advanced into the posterior iliac spine, with the tip positioned slightly cephalad. An 11-gauge core biopsy of the bone marrow was performed and was placed in formalin. Next, the 11-gauge bone marrow biopsy needle was then advanced into the posterior iliac spine, under CT guidance, with the tip positioned slightly caudal. A bone marrow aspirate was performed. The specimen was placed in the provided EDTA and sodium heparin tubes. The needle was removed. A dry dressing was applied and secured with Tegaderm. There were no immediate complications. The patient was stable after the procedure and was transferred to the post anesthesia care unit. The procedure was done under moderate sedation with a dedicated nurse for monitoring of vital signs. CT/CT biopsy asp core bone marrow Impression: CT-guided bone marrow biopsy and aspirate This procedure was performed by Emerson Oreilly PA-C and supervised by Dr. Alaniz.
[2023-10-26 11:32] VITALS: BMI 24.3
[2023-10-26 14:02] VITALS: BP 146/85; PULSE 72; RESP 13; TEMP 37; O2SAT 96
[2023-10-26 14:03] LABS: Bone Marrow SEE SEPARATE REPORT
[2023-10-26 14:17] VITALS: BP 138/74; PULSE 71; RESP 16; O2SAT 96
[2023-10-26 14:32] VITALS: BP 130/78; PULSE 70; RESP 16; TEMP 37; O2SAT 96
== END 2023-10-26 14:34 | disposition home or self-care (01) ==
LOC: HO.SSS 11:12
PROVIDERS: Pathology Anatomic Pathology & Clinical Pathology; Radiology Vascular & Interventional Radiology; PCP Nurse Practitioner Family; Visit Provider Internal Medicine Medical Oncology
PROC: (CPT 38221; principal; 2023-10-26 13:00)
DX: D64.9 Anemia, unspecified (principal); R53.83 Other fatigue; Z80.0 Family history of malignant neoplasm of digestive organs; F41.9 Anxiety disorder, unspecified; E78.00 Pure hypercholesterolemia, unspecified; I10 Essential (primary) hypertension; K58.9 Irritable bowel syndrome, unspecified; Z79.899 Other long term (current) drug therapy; F12.90 Cannabis use, unspecified, uncomplicated; Z87.891 Personal history of nicotine dependence
CPT/HCPCS: 36415; 38222; 88184; 88185; 88237; 88264; 88305; 88311; 88313; 88342; 88374; 99152; J2250; J2310; J3010

== ENCOUNTER → 2023-10-26 13:02 | Outpatient (BNV) | payer OTHER, SELFPAY | PROVIDERS: PCP Nurse Practitioner Family; Visit Provider Student in an Organized Health Care Education/Training Program | DX: D64.9 Anemia, unspecified (principal) | CPT/HCPCS: 38222; 77012 ==

== ENCOUNTER 2023-11-23 10:22 | Outpatient (AMB) | payer OTHER, SELFPAY ==
[2023-11-23 10:37] VITALS: BP 130/78; PULSE 82; O2SAT 97; BMI 25.4
--- NOTE | 2023-11-23 10:37 | MHC.PC.OV ---
Vital Signs 11/23/23 10:37 Height 5 ft 8 in Weight 167 lb 2 oz BMI 25.4 BP 130/78 Blood Pressure Location Lt brachial Position Sitting Pulse 82 Pulse Source Pulse Oximeter Pulse Oximetry (%) 97 Oxygen Delivery Method Room Air Intake Visit Reasons: PE Intake Note: Pt is here for his Annual PE Allergies No Known Allergies Allergy (Verified 11/23/23 12:03) Medication List - Last Reconciled 11/23/23 by CARLOS Evans cholestyramine (with sugar) 4 gram 1 ea PO DAILY dicyclomine 20 mg PO TID 30 days diphenoxylate-atropine 2.5-0.025 mg (Lomotil) 3 tabs PO BID PRN 30 days hydrochlorothiazide 25 mg PO DAILY lisinopril 20 mg PO DAILY loperamide 2 mg PO QID PRN 30 days oxycodone 5 mg PO BID PRN paroxetine HCl 40 mg PO DAILY simvastatin 20 mg PO DAILY Tobacco use date assessed: 11/23/23 Fall risk assessment: 1 Fall in past year Last assessed Fall Risk: 11/23/23 Dental Screening Dental Screen Date: 11/23/23 Did you have a dental visit in the last 12 months?: No Did you have a dental problem in the last 6 months where you did not have access to dental care?: No Was dental information given to patient?: No HPI PE HPI Details Pt is here for a PE. Will order labs. Colon screen is up to date. Due for PSA, will order. Denies dribbling with urination, weak stream, and frequent nocturia. He does report incomplete bladder emptying. Refused IVÁN today. Pt is following up with hematology due to chronic anemia. Pt reports recent tick bites without current signs of lyme/disease. Will order tick testing. Refuses pneumonina vaccine today. [facility] Medical History Anxiety Elevated cholesterol HTN (hypertension) IBS (irritable bowel syndrome) Surgical History Hx of hand surgery Hx of umbilical hernia repair History of appendectomy Hx of tonsillectomy Hx of colonoscopy Family History Mother Substance use disorder Mental health disorder Sister Mental health disorder Substance use disorder Social History Housing: House Patient Tobacco Use Status: Former Tobacco user Tobacco use type: Cigarette Years Smoked: 30 e-Cigarette/Vaping Use: Never Used Second Hand Smoke Exposure: No Substance Use Type: Marijuana service: No Current occupational status: retired Cognitive needs: No Hearing needs: No Vision needs: No Questionnaire PHQ-9 Over the last 2 weeks, how often have you been bothered by any of the following problems? 1. Little interest or pleasure in doing things: not at all 2. Feeling down, depressed, or hopeless: not at all 3. Trouble falling or staying asleep, or sleeping too much: not at all 4. Feeling tired or having little energy: nearly every day 5. Poor appetite or overeating: not at all 6. Feeling bad about yourself - or that you are a failure or have let yourself or your family down: not at all 7. Trouble concentrating on things, such as reading the newspaper or watching television: not at all 8. Moving or speaking so slowly that other people could have noticed. Or the opposite - being so fidgety or restless that you have been moving around a lot more than usual: not at all 9. Thoughts that you would be better off or of hurting yourself in some way: not at all Total score: 3 Source: Developed by Drs. Byron Garcia, Alpa Quijano, Garett Porras and colleagues, with an educational scar from [employer]. Thrive Questionnaire Date Thrive assessed: 11/23/23 I am a: Patient What is your living situation today?: I have a steady place to live Within the past 12 months, did the food you bought not last and you didn't have the money to get more?: Never true Within the past 12 months, did you worry whether your food would run out before you got money to buy more?: Never true Do you have trouble paying for medicines?: No Do you have trouble getting transportation to medical appointments?: No Do you have trouble paying your heating and electricity bill?: No Do you have trouble taking care of your child, family member or friend?: No Do you have trouble with day-to-day activities such as bathing, preparing meals, shopping, managing finances, etc.?: No Are you currently unemployed and looking for a job?: No Are you interested in more education?: No THRIVE Score: 0 AUDIT C Alcohol Use Questionnaire (AUDIT-C) 1. How often do you have a drink containing alcohol?: 4 or more times a week 2. How many drinks containing alcohol do you have on a typical day when you are drinking?: 1 or 2 3. How often do you have six or more drinks on one occasion?: Never Total Score: 4 MARJORIE-7 AMB Questionnaire MARJORIE-7 Date MARJORIE - 7 assessed: 11/23/23 Feeling nervous, anxious, or on edge: 0 = Not at all Not being able to stop or control worryin = Not at all Worrying too much about different things: 0 = Not at all Trouble relaxin = Not at all Being so restless that it is hard to sit still: 0 = Not at all Becoming easily annoyed or irritable: 0 = Not at all Feeling afraid as if something awful might happen: 0 = Not at all Total MARJORIE-7 score (0-4 normal; 5-9 mild; 10-14 moderate; 15-21 severe): 0 Source: Developed by Drs. Byron Garcia, Alpa Quijano, Garett Porras and colleagues, with an educational scar from [employer]. Review of Systems Const Denies chills and Denies fever(s) Eyes Denies blurry vision ENT Denies vertigo, Denies dizziness and Denies sore throat Card Denies chest pain at rest, Denies chest pain with activity, Denies diaphoresis, Denies dyspnea and Denies dyspnea on exertion Resp Denies cough, Denies dyspnea, Denies dyspnea on exertion and Denies wheezing GI Denies abdominal pain, Denies melena, Denies hematochezia, Denies constipation, Denies diarrhea and Denies loose stools Denies hematuria Musc Denies numbness and Denies tingling Skin/Breast Denies lesions Neuro Denies vertigo, Denies dizziness, Denies numbness and Denies tingling Psych Denies anxiety, Denies depression, Denies homicidal ideation, Denies suicidal ideation and Denies other (substance abuse) Aller/Immun Denies wheezing Physical exam (Primary Care) Vital Signs: Last Vital Signs Pulse 82 11/23/23 10:37 BP 130/78 11/23/23 10:37 Pulse Ox 97 11/23/23 10:37 Oxygen Delivery Method Room Air 11/23/23 10:37 BMI result Body Mass Index 25.4 Tobacco/Smoking Status: Tobacco use Status Tobacco use date assessed 11/23/23 11/23/23 10:45 Patient Tobacco Use Status Former Tobacco user 11/23/23 10:37 Tobacco use type Cigarette 11/23/23 10:37 e-Cigarette/Vaping Use Never Used 11/23/23 10:37 PHQ-9: PHQ-9 Score PHQ-9: Total score 3 11/23/23 11:05 Thrive Assessment: Date of Thrive Assessment Date Thrive assessed 11/23/23 11/23/23 10:47 Const General: cooperative Nutritional Appearance: well nourished Orientation/consciousness: patient oriented x3 HENMT Head: Yes normal to inspection, Yes normocephalic and Yes atraumatic Ears: TM's normal bilaterally Eyes General: appearance normal, both eyes and all related structures Alignment and Position: alignment normal and position normal Neck Neck: Yes normal visual inspection and Yes no lymphadenopathy Thyroid: Thyroid normal Resp Effort & Inspection: normal respiratory effort Auscultation: clear to auscultation bilaterally Cardio Rate: regular rate Rhythm: regular rhythm Heart sounds: S1 normal heart sound present, S2 normal heart sound present and no murmurs GI Palpation (GI): Soft to palpation and nontender Auscultation: normal bowel sounds Other: refused IVÁN Male General Exam: Yes normal external exam Penis: normal penis Scrotum: scrotum normal, testes descended bilaterally and no inguinal hernias Testes: no testicular mass Skin Rashes: no rashes Neuro General: patient oriented x3, moves all extremities, no focal motor deficits and deep tendon reflexes 2+ bilaterally Romberg Test: Negative Psych Appearance: grossly normal Mental Status: mental status grossly normal Speech and movement: Normal speech and movement present Affect: normal affect Attitude: cooperative Thought process: Normal thought process present Thought content: Normal thought content present Insight: Good insight present (Psych) Judgement: Good judgement present (Psych) Assessment and Plan Assessment & Plan (1) Tick bite: Code(s): W57.XXXA - Bitten or stung by nonvenomous insect and other nonvenomous arthropods, initial encounter Plan: Tick testing ordered (2) Encounter for physical examination: Code(s): Z00.00 - Encounter for general adult medical examination without abnormal findings Plan: Labs ordered (3) Encounter for screening for malignant neoplasm of prostate: Code(s): Z12.5 - Encounter for screening for malignant neoplasm of prostate Plan: PSA ordered Plan The patient agreed to the use of a certified medical technician for this encounter. Scribed for CARLOS Deras by Christine Harden certified medical technician, on 11/23/2023 at 11:00 EST. Orders: Orders Lipid Panel Today Z00.00 - Encounter for general adult medical examination without abnormal findings Prostate Specific Antigen Scr Today Z12.5 - Encounter for screening for malignant neoplasm of prostate Tick-borne Disease Molecular Today W57.XXXA - Bitten or stung by nonvenomous insect and other nonvenomous arthropods, initial encounter Medications: Refilled diphenoxylate-atropine 2.5-0.025 mg (Lomotil) 3 tabs PO BID 30 days PRN 180 tabs 0RF diarrhea Coding Level of Care Code Est Pt Prev Care >65y(44521) Diagnoses Tick bite W57.XXXA Encounter for physical examination Z00.00 Encounter for screening for malignant neoplasm of prostate Z12.5
== END 2023-11-23 11:23 | disposition home or self-care (01) ==
PROVIDERS: Visit Provider Nurse Practitioner Family
DX: T63.481A Toxic effect of venom of other arthropod, accidental (unintentional), initial encounter (principal); Z00.00 Encounter for general adult medical examination without abnormal findings; Z12.5 Encounter for screening for malignant neoplasm of prostate
CPT/HCPCS: 99397

== ENCOUNTER 2023-12-20 06:09 | Outpatient (REF) | payer OTHER, SELFPAY ==
[2023-12-20 10:19] LABS: MANUAL DIFF FLAG NO
[2023-12-20 10:23] LABS: Basophils Absolute Auto 0.1 X10*3/uL (0.0-0.2); Basophils Percent Auto 1.1 % (0-2); Eosinophils Absolute Auto 0.2 X10*3/uL (0.0-0.4); Eosinophils Percent Auto 3.9 % (0-4); Hematocrit 27.5 % (42.0-52.0); Hemoglobin 9.2 g/dl (14.0-18.0); Imm Gran Abs Auto 0.04 X10*3/uL (0.00-0.03); Imm Gran Pct Auto 0.7 % (0.0-0.4); Lymphocytes Absolute Auto 2.1 X10*3/uL (1.2-4.9); Lymphocytes Percent Auto 37.4 % (20-40); Mean Corpuscular HGB Conc 33.5 g/dl (31.0-36.0); Mean Corpuscular Hemoglobin 30.5 pg (27.0-33.0); Mean Corpuscular Volume 91.1 fL (80.0-98.0); Mean Platelet Volume 10.9 fL (9.4-12.4); Monocytes Absolute Auto 0.7 X10*3/uL (0.1-1.2); Neutrophils Absolute Auto 2.5 x10*3/uL (2.0-8.3); Neutrophils Percent Auto 43.9 % (45-73); Platelet Count 258 X10*3/uL (160-400); Red Blood Count 3.02 X10*6/uL (4.60-5.80); Red Cell Distribution Width 21.2 % (11.0-16.0); White Blood Count 5.7 X10*3/uL (4.8-10.8)
[2023-12-20 10:59] LABS: Alanine Aminotransferase 24 U/L (0-40); Albumin Level 3.8 g/dL (3.5-5.0); Alkaline Phosphatase 58 U/L (39-117); Anion Gap 10 (12-20); Aspartate Amino Transferase 28 U/L (5-37); Bilirubin Total 0.3 mg/dL (0.0-1.0); Blood Urea Nitrogen 26 mg/dL (9-16); Calcium 8.7 mg/dL (8.4-10.2); Carbon Dioxide 27 mmol/L (22-29); Chloride 110 mmol/L (96-108); Cholesterol 145 mg/dL (<200); Estimated Glomerular Filt Rate > 60; Glucose Random 93 mg/dL (60-115); HDL Cholesterol 56 mg/dL (>40); LDL Cholesterol Calculated 78 mg/dL (<100); Potassium 4.3 mmol/L (3.3-5.1); Sodium 143 mmol/L (135-145); Total Protein 6.8 g/dL (6.5-8.0); Triglycerides 59 mg/dL (<150)
[2023-12-20 11:08] LABS: Ferritin 535 ng/mL (20-250)
[2023-12-20 11:12] LABS: Prostate Specific Antigen Scr 0.92 ng/mL (<0.05-4.0)
[2023-12-21 22:23] LABS: A. Phagocytphilium DNA,RT-PCR NOT DETECTED (NOT DETECTED); Babesia Microti DNA, RT-PCR NOT DETECTED (NOT DETECTED); Borrelia Miyamotoi,DNA RT-PCR NOT DETECTED (NOT DETECTED); E.Chaffeensis DNA RT-PCR NOT DETECTED (NOT DETECTED); Lyme(Borrelia ssp)DNA RT-PCR NOT DETECTED (NOT DETECTED)
== END 2023-12-20 06:10 | disposition home or self-care (01) ==
LOC: HO.HMGCLDS 06:09
PROVIDERS: PCP Nurse Practitioner Family; Referring Provider Internal Medicine Medical Oncology; Visit Provider Nurse Practitioner Family
DX: Z00.00 Encounter for general adult medical examination without abnormal findings (principal); D64.9 Anemia, unspecified; T14.8XXA Other injury of unspecified body region, initial encounter; W57.XXXA Bitten or stung by nonvenomous insect and other nonvenomous arthropods, initial encounter; Y93.9 Activity, unspecified; Y92.9 Unspecified place or not applicable; Y99.9 Unspecified external cause status; Z12.5 Encounter for screening for malignant neoplasm of prostate
CPT/HCPCS: 36415; 80053; 80061; 82728; 84153; 85025; 87468; 87469; 87478; 87484; 87798

== ENCOUNTER 2024-07-03 10:10 | Outpatient (AMB) | payer OTHER, SELFPAY ==
--- NOTE | 2024-07-03 11:09 | MHC.OFFWIV ---
Intake Vital Signs 07/03/24 11:11 Height 5 ft 8 in Weight 159 lb 6 oz BMI 24.2 BP 138/84 Blood Pressure Location Lt brachial Position Sitting Pulse 72 Pulse Source Pulse Oximeter Pulse Oximetry (%) 98 Oxygen Delivery Method Room Air Intake Visit Reasons: EP scalp itching/eczema type patch Intake Note: Patient here for a dry spot on left side of head/behind ear and is very itchy and states it has been present for about 1 year. Patient Tobacco Use Status: Former Tobacco user Allergies No Known Allergies Allergy (Verified 07/03/24 11:12) Do you need a note to return to daycare/school/sports/work: No HPI HPI Comments History of Present Illness Details Patient is a 68-year-old male complaining of an itchy dry patches skin in his hairline for the last year. He states that he woke up 1 morning and while he was in a room and he had a patch of dry skin on his forehead and then this when behind his left ear. He states that he was in [place] for 3 weeks and the sunshine on his forehead he thinks cleared up the dry patch but the 1 behind his ear, in his hairline, has not cleared up since then. He states that he has tried many different anti-itch creams and moisturizers that he has purchased [id number] including hydrocortisone cream. He states nothing seems to make it better and it is waking him up at night because it is so itchy. Tells me he has tried using T/Gel and Selsun blue and these are ineffective as well [facility] Medical History Anxiety Elevated cholesterol HTN (hypertension) IBS (irritable bowel syndrome) Surgical History Hx of hand surgery Hx of umbilical hernia repair History of appendectomy Hx of tonsillectomy Hx of colonoscopy Family History Mother Substance use disorder Mental health disorder Sister Mental health disorder Substance use disorder Social History Housing: House Patient Tobacco Use Status: Former Tobacco user Tobacco use type: Cigarette Years Smoked: 30 e-Cigarette/Vaping Use: Never Used Second Hand Smoke Exposure: No Substance Use Type: Marijuana service: No Current occupational status: retired Cognitive needs: No Hearing needs: No Vision needs: No Review of Systems Const All systems reviewed & are unremarkable except as noted in HPI and below Physical Exam Vital Signs: Last Vital Signs Pulse 72 07/03/24 11:11 BP 138/84 07/03/24 11:11 Pulse Ox 98 07/03/24 11:11 Oxygen Delivery Method Room Air 07/03/24 11:11 BMI result Body Mass Index 24.2 Const General: cooperative, healthy appearing, comfortable, no acute distress and well developed Orientation/consciousness: patient oriented x3 Limitations: no limitations Eyes General: appearance normal, both eyes and all related structures Resp Effort & Inspection: normal respiratory effort and able to speak in complete sentences Skin Other: large 3cm x 6cm white patch with flakes under hairline behind the left ear. No signs of infection noted, no induration, no ecchymosis Neuro General: patient oriented x3 Assessment & Plan Assessment & Plan (1) Eczema: Code(s): L30.9 - Dermatitis, unspecified Qualifiers: Eczema type: unspecified Qualified Code(s): L30.9 - Dermatitis, unspecified Plan: As he has tried [id number]-[id number] hydrocortisone cream, we will prescribe a stronger steroid cream to see if that helps. Recommended if this does not improve that he should follow up with his PCP for referral to Dermatology. Plan See above Medications: New triamcinolone acetonide 0.1% 1 appl topical BID 80 grams 0RF Coding Level of Care Code Est Pt Level 3 (38402) Diagnoses Eczema, unspecified type L30.9 Eczema type: unspecified
[2024-07-03 11:11] VITALS: BP 138/84; PULSE 72; O2SAT 98; BMI 24.2
== END 2024-07-03 11:42 | disposition home or self-care (01) ==
PROVIDERS: PCP Nurse Practitioner Family; Visit Provider Physician Assistant
DX: L30.9 Dermatitis, unspecified (principal)

== ENCOUNTER → 2024-07-03 10:10 | Outpatient (BNVA) | payer OTHER, SELFPAY | PROVIDERS: PCP Nurse Practitioner Family; Visit Provider Physician Assistant | DX: L30.9 Dermatitis, unspecified (principal) | CPT/HCPCS: 99212 ==

== ENCOUNTER 2024-12-17 10:53 | Outpatient (AMB) | payer OTHER, SELFPAY ==
[2024-12-17 10:56] VITALS: BP 160/90; PULSE 86; O2SAT 97; BMI 23.7
--- NOTE | 2024-12-17 10:56 | A.OFFPC_ITS ---
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 Accompanied by: Self / Same As Patient Allergies No Known Allergies Allergy (Verified 12/17/24 10:56) Medication List - Last Reconciled 12/17/24 by LISA Evans- cholestyramine (with sugar) 4 gram 1 ea PO DAILY diphenoxylate-atropine 2.5-0.025 mg (Lomotil) 2 tabs PO BID PRN hydrochlorothiazide 25 mg PO DAILY lisinopril 20 mg PO DAILY loperamide 2 mg PO QID PRN 30 days oxycodone mg PO paroxetine HCl 40 mg PO DAILY simvastatin 20 mg PO DAILY triamcinolone acetonide 0.1% 1 appl topical BID Tobacco use date assessed: 12/17/24 Fall risk assessment: 1 Fall in past year Last assessed Fall Risk: 12/17/24 Dental Screening Dental Screen Date: 12/17/24 Did you have a dental visit in the last 12 months?: No Did you have a dental problem in the last 6 months where you did not have access to dental care?: No Was dental information given to patient?: Patient declined HPI ANNUAL PE HPI Details History of Present Illness The patient is a 69-year-old male presenting for a physical examination and review of chronic conditions including COPD and anemia. He reports a history of chronic obstructive pulmonary disease but notes no acute chest pain or current shortness of breath, only a slight cough at this visit. He discontinued tobacco use 33 years prior after a period of substantial smoking and has a history of periodic marijuana use. He denies experiencing fever or chills. He has a well- documented history of anemia for which he had been under hematology care but currently receives iron therapy only. The patient also reports some forgetfulness recently, with a mini-mental status exam resulting in a full score today. He experiences nocturia, yet feels he empties his bladder adequately. Despite declining a digital rectal exam, he will undergo a PSA test as part of screening, and notes his colonoscopy screenings are current. Health Maintenance - Monitoring and management of COPD - Anemia management, including use of ir on supplements - Continued evaluation of cognitive heal th, refer to Neurology - Screening with PSA test for prostate h ealth - Maintenance of up-to-date colonoscopy Social History - Former heavy smoker; ceased 33 years a go - Periodic marijuana use in the past - Managed with iron supplements for anem ia Review of Systems - Respiratory System: Reports slight cou gh; Denies shortness of breath, chest pain - Gastrointestinal System: Denies blood in stools, constipation, diarrhea - Genitourinary System: Denies inability to empty bladder; Reports nocturia Physical Exam General: Cooperative, healthy appearing, comfortable, no acute distress and well developed Orientation: Patient oriented x3 Limitations: No limitations Head: Normal to inspection Ears: Hearing grossly normal bilaterally, TMs unable to see due to cerumen, after ear lavage, some residual cerumen to right Nose: Normal external nose present Face and sinus: Normal facial exam Eyes: Appearance normal, both eyes and all related structures Neck: Normal visual inspection and Yes full ROM Respiratory: Normal respiratory effort and able to speak in complete sentences. Clear to auscultation bilaterally Cardiovascular: Regular rate and rhythm. Normal S1 and S2 GI: Normal to inspection. Soft to palpation and nontender Skin: No rashes or lesions noted Neuro: Patient oriented x3, mini mental exam 30/30, neg rhomberg Extremities: Normal to inspection Results Plan For the management of COPD, a CT scan of the lungs will be organized to further assess his respiratory health. Anemia will be evaluated with a complete blood count as he continues iron therapy. I will refer the patient to Neurology for a thorough cognitive assessment as forgetfulness was reported, and laboratory evaluations for methylmalonic acid, homocysteine, b12, will be conducted. A PSA test will be scheduled for prostate health screening, acknowledging his nocturia and having declined a digital rectal exam. His colonoscopy is current and will remain part of his health maintenance. Discussion Notes I discussed with the patient the necessity of a CT scan of the lungs to monitor his COPD, highlighted the importance of continuing iron supplements for anemia, and recommended a CBC to review his current hematologic status. I emphasized scheduling a referral with Neurology for cognitive evaluation while noting the significance of obtaining methylmalonic acid, homocysteine, and B12 labs. I reviewed the plan to proceed with a PSA test for prostate health screening due to nocturia, despite not performing a digital rectal exam today. The plan was set to ensure ongoing health maintenance and prevent future complications, including up-to-date colonoscopy screenings. Patient Instructions - Follow through with the scheduled CT s can of the lungs. - Continue taking iron supplements as pr escribed. - Arrange for a Neurology appointment to assess forgetfulness. - Complete the recommended laboratory te sts for methylmalonic acid, homocysteine, and B12. - Undergo the PSA test as planned. - Ensure preventive measures by keeping up with regular screenings. [facility] Medical History Anxiety Elevated cholesterol HTN (hypertension) IBS (irritable bowel syndrome) Surgical History Hx of hand surgery Hx of umbilical hernia repair History of appendectomy Hx of tonsillectomy Hx of colonoscopy Family History Mother Substance use disorder Mental health disorder Sister Mental health disorder Substance use disorder Social History Housing: House Patient Tobacco Use Status: Former Tobacco user Tobacco use type: Cigarette Years Smoked: 30 e-Cigarette/Vaping Use: Never Used Second Hand Smoke Exposure: No Substance Use Type: Marijuana service: No Current occupational status: retired Cognitive needs: No Hearing needs: No Vision needs: No Questionnaire PHQ-9 Over the last 2 weeks, how often have you been bothered by any of the following problems? 1. Little interest or pleasure in doing things: not at all 2. Feeling down, depressed, or hopeless: not at all 3. Trouble falling or staying asleep, or sleeping too much: not at all 4. Feeling tired or having little energy: not at all 5. Poor appetite or overeating: not at all 6. Feeling bad about yourself - or that you are a failure or have let yourself or your family down: not at all 7. Trouble concentrating on things, such as reading the newspaper or watching television: not at all 8. Moving or speaking so slowly that other people could have noticed. Or the opposite - being so fidgety or restless that you have been moving around a lot more than usual: not at all 9. Thoughts that you would be better off or of hurting yourself in some way: not at all Total score: 0 Depression Screening Interpretation: Negative Depression Screening Done: Yes 18821 - PHQ-9 Billing: Yes Source: Developed by Drs. Byron Garcia, Alpa Quijano, Garett Porras and colleagues, with an educational scar from [employer]. Thrive Questionnaire Date Thrive assessed: 12/17/24 I am a: Patient What is your living situation today?: I have a steady place to live Within the past 12 months, did the food you bought not last and you didn't have the money to get more?: Never true Within the past 12 months, did you worry whether your food would run out before you got money to buy more?: Never true Do you have trouble paying for medicines?: No Do you have trouble getting transportation to medical appointments?: No Do you have trouble paying your heating and electricity bill?: No Do you have trouble taking care of your child, family member or friend?: No Do you have trouble with day-to-day activities such as bathing, preparing meals, shopping, managing finances, etc.?: No Are you currently unemployed and looking for a job?: No Are you interested in more education?: No Please select the resources that you would like help with: Food Currently or been in a relationship where the following occur: No concerns reported THRIVE Score: 0 AUDIT C Alcohol Use Questionnaire (AUDIT-C) 1. How often do you have a drink containing alcohol?: 2-3 times a week 2. How many drinks containing alcohol do you have on a typical day when you are drinking?: 1 or 2 3. How often do you have six or more drinks on one occasion?: Never Total Score: 3 Score Reviewed/Action Taken: Yes MARJORIE-7 AMB Questionnaire MARJORIE-7 Date MARJORIE - 7 assessed: 12/17/24 Feeling nervous, anxious, or on edge: 1 = Several days Not being able to stop or control worryin = Several days Worrying too much about different things: 1 = Several days Trouble relaxin = Several days Being so restless that it is hard to sit still: 1 = Several days Becoming easily annoyed or irritable: 1 = Several days Feeling afraid as if something awful might happen: 1 = Several days Total MARJORIE-7 score (0-4 normal; 5-9 mild; 10-14 moderate; 15-21 severe): 7 Source: Developed by Drs. Byron Garcia, Alpa Quijano, Garett Porras and colleagues, with an educational scar from [employer]. MARJORIE-7 Assessment Billing MARJORIE-7 Assessment Tool: MARJORIE-7 Assessment 74850 Physical exam (Primary Care) Vital Signs: Last Vital Signs Pulse 86 12/17/24 10:56 BP 160/90 H 12/17/24 10:56 Pulse Ox 97 12/17/24 10:56 Oxygen Delivery Method Room Air 12/17/24 10:56 BMI result Body Mass Index 23.7 Tobacco/Smoking Status: Tobacco use Status Tobacco use date assessed 12/17/24 12/17/24 10:57 Patient Tobacco Use Status Former Tobacco user 12/17/24 10:57 Tobacco use type Cigarette 12/17/24 10:57 e-Cigarette/Vaping Use Never Used 12/17/24 10:57 PHQ-9: PHQ-9 Score PHQ-9: Total score 0 12/17/24 11:46 Depression Screening Interpretation: Negative Thrive Assessment: Date of Thrive Assessment Date Thrive assessed 12/17/24 12/17/24 10:57 Currently or been in a relationship where the following occur: No concerns reported Office Procedures Cerumen Removal From which ear canal was the cerumen removed: bilateral Removal: irrigation Notes: patient tolerated procedure well, no complications and ear canal clear (residual cerumen left in right, encouraged to use ear wax removal kit) 18810-Csb Irrigation/Lavage Coding Level of Care Code Est Pt Prev Care >65y(72247) Diagnoses Encounter for physical examination Z00.00 Encounter for screening for malignant neoplasm of prostate Z12.5 Cough R05.9 COPD (chronic obstructive pulmonary disease) J44.9 Forgetfulness R68.89 Excessive cerumen in both ear canals H61.23 CPT Codes Office Procedure - CPT: 46967-Jci Irrigation/Lavage ([id number]) Additional Codes MARJORIE-7 Assessment Billing - MARJORIE-7 Assessment Tool: MARJORIE-7 Assessment 65382 ([id number]) PHQ-9 - 42505 - PHQ-9 Billing: Yes ([id number]) Assessment & Plan Assessment & Plan (1) Encounter for physical examination: Code(s): Z00.00 - Encounter for general adult medical examination without abnormal findings Category: Medical (2) Encounter for screening for malignant neoplasm of prostate: Code(s): Z12.5 - Encounter for screening for malignant neoplasm of prostate Category: Medical (3) Cough: Code(s): R05.9 - Cough, unspecified Category: Medical (4) COPD (chronic obstructive pulmonary disease): Code(s): J44.9 - Chronic obstructive pulmonary disease, unspecified Category: Medical (5) Forgetfulness: Code(s): R68.89 - Other general symptoms and signs Category: Medical (6) Excessive cerumen in both ear canals: Code(s): H61.23 - Impacted cerumen, bilateral Category: Medical Plan . Orders: Orders Complete Blood Count Auto Diff Today Z00.00 - Encounter for general adult medical examination without abnormal findings UA CC w/rflx Micro + Cult Today Z00.00 - Encounter for general adult medical examination without abnormal findings CT chest wo IV con Today J44.9 - Chronic obstructive pulmonary disease, unspecified, R05.9 - Cough, unspecified Homocysteine Today R68.89 - Other general symptoms and signs Methylmalonic Acid Today R68.89 - Other general symptoms and signs Vitamin B12 and Folate Today R68.89 - Other general symptoms and signs Comprehensive Sperry. Panel Fast Today Z00.00 - Encounter for general adult medical examination without abnormal findings TSH reflex Free T4 Today Z00.00 - Encounter for general adult medical examination without abnormal findings Lipid Panel Today Z00.00 - Encounter for general adult medical examination without abnormal findings Prostate Specific Antigen Scr Today Z12.5 - Encounter for screening for malignant neoplasm of prostate Tick-borne Disease Molecular Today R68.89 - Other general symptoms and signs Lyme IgG/IgM w/reflex to WB Today R68.89 - Other general symptoms and signs Referrals Neurology Referral R68.89 - Other general symptoms and signs
[2024-12-17 12:22] VITALS: BP 120/76
== END 2024-12-17 12:23 | disposition home or self-care (01) ==
LOC: HO.HMCC 10:53
PROVIDERS: PCP Nurse Practitioner Family; Visit Provider Nurse Practitioner Family
DX: Z00.00 Encounter for general adult medical examination without abnormal findings (principal); R05.9 Cough, unspecified; J44.9 Chronic obstructive pulmonary disease, unspecified; R68.89 Other general symptoms and signs; H61.23 Impacted cerumen, bilateral; Z12.5 Encounter for screening for malignant neoplasm of prostate

== ENCOUNTER → 2024-12-17 10:53 | Outpatient (BNVA) | payer OTHER, SELFPAY | PROVIDERS: PCP Nurse Practitioner Family; Visit Provider Nurse Practitioner Family | DX: Z00.00 Encounter for general adult medical examination without abnormal findings (principal); R05.9 Cough, unspecified; J44.9 Chronic obstructive pulmonary disease, unspecified; R68.89 Other general symptoms and signs; H61.23 Impacted cerumen, bilateral | CPT/HCPCS: 69209; 96127; 99397 ==

== ENCOUNTER 2024-12-30 08:04 | Outpatient (REF) | payer OTHER, SELFPAY ==
--- OUTSIDE RECORDS SUMMARY | 2024-12-30 08:16 | XMS_ITS ---
Author Organization [facility] Address [address] [place] [address] Care Team Providers Care Occ Therapy Asst Name Role Phone MACARIO HAUSER Primary Care Provider Jose Dubon Jr Unavailable [phone] REASON FOR VISIT R/S OV Encounters Encounter Location Date Provider Diagnosis [facility] [address] [place] [address] 10/11/2024 Jose Juarez Jr Plan Of Treatment Next Appt Details Provider Name:Jose ba Jr, 01/10/2025 10:00:00 AM, [address], [address], [place], [address], Progress Notes * JEROME BENNETTDOB:1955 ( 69 yo M)Acc No.[id number]:10/11/2024 Patient:?SABRINAJEROME :1955???Age:69 Y???Sex:Male Address:[address], [place] [address] * true * Date:? Generated for Printi ng/Faxing/eTransmitting on:?12/30/2024 08:15 AM EDT
--- OUTSIDE RECORDS SUMMARY | 2024-12-30 08:16 | XMS_ITS ---
Author Organization [facility] Address [address] [place] [address] Care Team Providers Care Registrar Museum Name Role Phone BRIANRitikaMACARIO Primary Care Provider Jose Dubon Jr Unavailable Allergies No Known Allergies REASON FOR VISIT Patient presents today for a new medication Medications Medication SIG (Take, Route, Frequency, Duration) Notes Start Date End Date Status hydroCHLOROthiazide 25 MG 1 tablet in th e morning Orally Once a day Active Lisinopril 20 MG 1 tablet Orally Once a day Active Diphenoxylate-Atropine 2.5-0.025 MG 3 tablets as needed for diarrhea Orally Three times a day for 30 days 02/08/2023 Active PARoxetine HCl 40 MG 1 tablet in the morning Orally Once a day for 30 day(s) Active oxyCODONE HCl 10 MG 1 tablet as needed Orally every 6 hrs Active Simvastatin 20 MG 1 tablet in the evening Orally Once a day Active Loperamide HCl 2 MG 1 capsule as needed Orally Four times a day Active Cholestyramine 4 GM 1 packet mixed with water or non-carbonated drink Orally Once a day for 30 day(s) 08/03/2023 Active Vital Signs Temperature 97.3 degrees Fahrenheit 10/18/19 24 Blood pressure systolic 000 mm Hg 10/18/19 24 Blood pressure diastolic 00 mm Hg 024 Height 67.75 in 10/18/2023 Weight 161 lb 8 oz lbs 10/18/2023 BMI 24.73 kg/m2 10/18/2023 Encounters Encounter Location Date Provider Diagnosis [facility] [address] [place] [address] 10/18/2023 Jose Juarez Jr Irritable bowel syndrome with diarrhea K58.0 and Colon cancer screening Z12.11 Assessments Encounter Date Diagnosis (ICD Code) Assessment Notes Treatment Notes Treatment Clinical Notes Section Notes 10/18/2023 Irritable bowel syndrome with diarrhea (ICD-10 - K58.0) Irritable bowel syndrome material was printed At this time, is doing quite well. We recommended he continue his present regimen. Followup will be in 12 months. He will be due for colorectal cancer screening at that time. 10/18/2023 Colon cancer screening (ICD-10 - Z12.11) At this time, is doing quite well. We recommended he continue his present regimen. Followup will be in 12 months. He will be due for colorectal cancer screening at that time. Plan Of Treatment Treatment Notes Assessment Notes Irritable bowel syndrome with diarrhea I rritable bowel syndrome material was printed Next Appt Details Follow Up: 1 Year, Reason: Provider Name:Jose ba Jr, 01/10/2025 10:00:00 AM, [address] [place] [address], [address], [address], Progress Notes * KWABENA BENNETTDOB:1955 ( 68 yo M)Acc No.[id number]:10/18/2023 Progress Notes Patient:?KWABENA BENNETT Provider:?Jose Juarez MD :1955???Age:68 Y???Sex:Male Anselmo e:10/18/2023 Address:[address] [place], [place] [id number] Pcp:MACARIO HAUSER Subjective: * Chief Complaints: * ???1. Patient presents today for a new medication. * HPI: ???New symptom(s):? Kwabena is a pleasant 68-year-old man seen today in followup of irritable bowel syndrome with diarrhea predominance. 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 This was in October of 2021. Three- year followup was recommended. We reviewed this today. ?He reports that since he started using cholestyramine to help with his diarrhea he's been doing quite well. He describes h his bowel movements as perfectly fine . These occur about every 2 days. He has no urgency. He continues on Lomotil, loperamide, and dicyclomine. He is able to broaden his diet and eat what he wants. He has no rectal bleeding, abdominal pain, or rectal pain. He has actually been able to put on a few pounds. 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 * Surgical History:?Tonsils , appendectomy , umbilical hernia repair , hand surgery . * Family History:?Father: dece ased, diagnosed with HTN (hypertension).?Mother: .?Maternal Grand Mother: Patient, diagnosed with Colon cancer.? The patient's maternal grandmother had some sort of intestinal surgery but there is no known history of cancer. * Social History:?Tobacco Use:?Tobacco Use/Smoking?Are you a: former smoker , How long has it been since you last smoked?: > 10 years.?Drugs/Alcohol:?Alcohol Screen?Points: 4, Interpretation: Positive.?Miscellaneous:?Marital status: . Occupation: unemployed. * Medications:?Taking Cholesty ramine 4 GM Packet 1 packet mixed with water or non-carbonated drink Orally Once a day, Taking Loperamide HCl 2 MG Capsule 1 capsule as needed Orally Four times a day, Taking PARoxetine HCl 40 MG Tablet 1 tablet in the morning Orally Once a day, Taking oxyCODONE HCl 10 MG Tablet 1 tablet as needed Orally every 6 hrs, Taking Simvastatin 20 MG Tablet 1 tablet in the evening Orally Once a day, Taking hydroCHLOROthiazide 25 MG Tablet 1 tablet in the morning Orally Once a day, Taking Lisinopril 20 MG Tablet 1 tablet Orally Once a day, Taking Diphenoxylate-Atropine 2.5-0.025 MG Tablet 3 tablets as needed for diarrhea Orally Three times a day, Discontinued Colyte with Flavor Packs 240 GM Solution Reconstituted As directed Orally Over the specified time., Discontinued MiraLax (colon prep) 17 GM/SCOOP Powder mixed with Gatorade or Crystal Light Orally begin at 5:00 p.m. the day before the procedure, Medication List reviewed and reconciled with the patient * Allergies:?N.K.D.A. Objective: * Vitals:?Wt: 161 lb 8 oz, Ht: 67.75 in, BMI:24.73 Index, BP: 000/00 mm Hg, Temp: 97.3. * Examination: ???General Examination: ???On examination today, he appears well. Skin is anicteric. Lungs are clear. Heart shows regular rhythm. Abdomen is soft without focal masses or tenderness. Extremities are without edema. Assessment: * Assessment: 1.?Irritable bowel syndrome with diarrhea - K58.0 (Primary)?2.?Colon cancer screening - Z12.11? At this time, is doing quite well. We recommended he continue his present regimen. Followup will be in 12 months. He will be due for colorectal cancer screening at that time. Plan: * Treatment: * Procedure Codes:?3017F COLOR ECTAL CA SCREEN DOC REV, G9903 Pt scrn tbco id as non user, G9744 PATIENT NOT ELIG D/T ACTIVE DX HTN * Follow Up:?1 Year * * Sign off status: Completed true * Provider:?Jose Juarez MD Date:?0 10/18/2023 Generated for Carlos carbone/Brandie/Kendraitting on:?12/30/2024 08:16 AM EDT History and Physical Notes * HPI (History of Present Illness) Category Sub-Category Detail Notes Category Not es New symptom(s) Kwabena is a pleasant 68-year-old man seen today in followup of irritable bowel syndrome with diarrhea predominance. 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 This was in October of 2021. Three-year followup was recommended. We reviewed this today. He reports that since he started using cholestyramine to help with his diarrhea he's been doing quite well. He describes h his bowel movements as perfectly fine . These occur about every 2 days. He has no urgency. He continues on Lomotil, loperamide, and dicyclomine. He is able to broaden his diet and eat what he wants. He has no rectal bleeding, abdominal pain, or rectal pain. He has actually been able to put on a few pounds. Examination Category Sub-Category Detail Notes Category Not es General Examination On exami nation today, he appears well. Skin is anicteric. Lungs are clear. Heart shows regular rhythm. Abdomen is soft without focal masses or tenderness. Extremities are without edema.
--- OUTSIDE RECORDS SUMMARY | 2024-12-30 08:16 | XMS_ITS | Patient Health Record ---
Author Organization [facility] Address [address] [place] [address] Care Team Providers Care Electrophysiology Technician Name Role Phone MACARIO HAUSER Primary Care Provider Jose Dubon Jr Unavailable Allergies No Known Allergies Reason For Referral No Information Medications Medication SIG (Take, Route, Frequency, Duration) Notes Start Date End Date Status PARoxetine HCl 40 MG 1 tablet in the morning Orally Once a day for 30 day(s) Active oxyCODONE HCl 10 MG 1 tablet as needed Orally every 6 hrs Active Simvastatin 20 MG 1 tablet in the evening Orally Once a day Active hydroCHLOROthiazide 25 MG 1 tablet in th e morning Orally Once a day Active Loperamide HCl 2 MG 1 capsule as needed Orally Four times a day Active Lisinopril 20 MG 1 tablet Orally Once a day Active Cholestyramine 4 GM TAKE 1 PACKET MIXED WITH WATER OR NON-CARBONATED DRINK BY MOUTH ONCE A DAY for 90 Active Diphenoxylate-Atropine 2.5-0.025 MG 3 tablets as needed for diarrhea Orally Three times a day for 30 days 02/08/2023 Active Immunizations Vaccine Route Administration Date Status Comme nts Influenza Unknown 08/11/2021 Administered Influenza Unknown 09/25/2023 Administered Problems Problem Type SNOMED Code ICD Code Onset Dates Problem Status W/U Status Risk Notes Problem 271207700 Colon cancer screening (Z12.11) Active confirmed Problem 137365827 Irritable bowel syndrome with diarrhea (K58.0) Active confirmed Problem 70220103 Diarrhea, unspecified type (R19.7) Active confirmed Encounters Encounter Location Date Provider Diagnosis [facility] [address] [place] [address] 10/11/2024 Jose Juarez Jr Plan Of Treatment Future Test Test Name Order Date COLONOSCOPY 05/23/2012 COLONOSCOPY 02/25/2016 COLONOSCOPY 10/04/2021 Next Appt Details Provider Name:Jose Narciso ba Jr, 01/10/2025 10:00:00 AM, [address] [facility], [address], [place], [address], Insurance Providers Payer Name Payer Address Payer Phone Subscriber Number Group Number Insured Name Patient Relationship to Insured Coverage Start Date Coverage End Date [facility] [address] Attn Claims CAROL Amador [id number] JEROME BENNETT Self - patient is the insured MEDICAID OF [facility] [address] [place] [address] [phone] [id number] JEROME BENNETT Self - patient is the insured Medical (General) History Medical History History ICD Code Colonoscopy 11/16, tubulovill ous adenoma greater than 10 mm, three-year followup Irritable bowel syndrome with diarrhea p redominance Hypertension Hyperlipidemia Anxiety Surgical History Surgery Date(Month/Year) Tonsils appendectomy umbilical hernia repair hand surgery
--- OUTSIDE RECORDS SUMMARY | 2024-12-30 08:16 | XMS_ITS ---
Author Organization [facility] Address [address] [place] [address] Care Team Providers Care Senior Loss Control Specialist Name Role Phone MACARIO HAUSER Primary Care Provider Jose Dubon Jr Unavailable REASON FOR VISIT Patient presents today for IBS Encounters Encounter Location Date Provider Diagnosis [facility] [address] [facility] [address] [place] [address] 10/16/2024 Jose Juarez Jr Plan Of Treatment Next Appt Details Provider Name:Jose ba Jr, 01/10/2025 10:00:00 AM, [address], [address], [place], [address], Progress Notes * SABRINAJEROMEDOB:1955 ( 69 yo M)Acc No.[id number]:10/16/2024 Progress Notes Patient:?JEROME BENNETT Provider:?Jose Juarez MD :1955???Age:69 Y???Sex:Male Anselmo e:10/16/2024 Address[address], [place] Pcp:MACARIO HAUSER Subjective: * Chief Complaints: * ???1. Patient presents today for IBS. * Medical History:? Objective: * Vitals:? Assessment: Plan: * Treatment: * * The named appointment provid er may or may not be the originator of this progress note, and it is not deemed complete until electronically signed by the appointment provider. Sign off status: Pending * Provider:?Jose Juarez MD Date:?0 10/16/2024 Generated for Carlos carbone/Brandie/Chaz on:?12/30/2024 08:15 AM EDT
[2024-12-30 08:50] LABS: MANUAL DIFF FLAG NO
[2024-12-30 09:01] LABS: Basophils Percent Auto 0.8 % (0-2); Eosinophils Absolute Auto 0.1 X10*3/uL (0.0-0.4); Eosinophils Percent Auto 1.7 % (0-4); Hematocrit 25.5 % (42.0-52.0); Hemoglobin 8.5 g/dl (14.0-18.0); Imm Gran Abs Auto 0.02 X10*3/uL (0.00-0.03); Imm Gran Pct Auto 0.4 % (0.0-0.4); Lymphocytes Absolute Auto 1.6 X10*3/uL (1.2-4.9); Lymphocytes Percent Auto 30.6 % (20-40); Mean Corpuscular HGB Conc 33.3 g/dl (31.0-36.0); Mean Corpuscular Hemoglobin 29.6 pg (27.0-33.0); Mean Corpuscular Volume 88.9 fL (80.0-98.0); Monocytes Absolute Auto 0.8 X10*3/uL (0.1-1.2); Monocytes Percent Auto 15.4 % (2-11); Neutrophils Absolute Auto 2.7 x10*3/uL (2.0-8.3); Neutrophils Percent Auto 51.1 % (45-73); Platelet Count 227 X10*3/uL (160-400); Red Blood Count 2.87 X10*6/uL (4.60-5.80); Red Cell Distribution Width 24.6 % (11.0-16.0); White Blood Count 5.2 X10*3/uL (4.8-10.8)
[2024-12-30 10:16] LABS: Alanine Aminotransferase 22 U/L (0-40); Alkaline Phosphatase 68 U/L (39-117); Anion Gap 10 (12-20); Aspartate Amino Transferase 33 U/L (5-37); Bilirubin Total 0.7 mg/dL (0.0-1.0); Blood Urea Nitrogen 22 mg/dL (9-16); Calcium 8.8 mg/dL (8.4-10.2); Carbon Dioxide 24 mmol/L (22-29); Chloride 110 mmol/L (96-108); Cholesterol 165 mg/dL (<200); Estimated Glomerular Filt Rate > 60; Glucose Fasting 96 mg/dL (60-99); HDL Cholesterol 66 mg/dL (>40); LDL Cholesterol Calculated 90 mg/dL (<100); Potassium 3.6 mmol/L (3.3-5.1); Sodium 140 mmol/L (135-145); Total Protein 6.9 g/dL (6.5-8.0); Triglycerides 47 mg/dL (<150)
[2024-12-30 10:17] LABS: Appearance Urine Clear; Color Urine Dark Yellow; Glucose Urine UA Negative (Negative); Leukocyte Esterase Urine Negative (Negative); Nitrite Urine Negative (Negative); PH 5.5 (5.0-9.0); Specific Gravity - Urine >= 1.030 (1.005-1.025); Urine Blood Negative (Negative); Urine Ketones 15 mg/dL (Negative); Urine Protein Trace mg/dL (Neg-Trace)
[2024-12-30 10:19] LABS: TSH reflex Free T4 1.04 uIU/mL (0.32-4.0)
[2024-12-30 10:31] LABS: Folate 13.6 ng/mL (> or = 4.0); Prostate Specific Antigen Scr 1.04 ng/mL (<0.05-4.0); Vitamin B12 560 pg/mL (200-900)
[2024-12-31 19:39] LABS: Homocysteine 14.1 umol/L (<11.4)
[2024-12-31 21:28] LABS: A. Phagocytphilium DNA,RT-PCR NOT DETECTED (NOT DETECTED); Babesia Microti DNA, RT-PCR NOT DETECTED (NOT DETECTED); Borrelia Miyamotoi,DNA RT-PCR NOT DETECTED (NOT DETECTED); E.Chaffeensis DNA RT-PCR NOT DETECTED (NOT DETECTED); Lyme(Borrelia ssp)DNA RT-PCR NOT DETECTED (NOT DETECTED)
[2025-01-01 02:53] LABS: Lyme Abs Screen <0.90 index
[2025-01-02 22:58] LABS: Methylmalonic Acid 121 nmol/L (69-390)
== END 2024-12-30 08:05 | disposition home or self-care (01) ==
LOC: HO.HMGCLDS 08:04
PROVIDERS: PCP Nurse Practitioner Family; Visit Provider Nurse Practitioner Family
DX: Z00.00 Encounter for general adult medical examination without abnormal findings (principal); R68.89 Other general symptoms and signs; Z12.5 Encounter for screening for malignant neoplasm of prostate
CPT/HCPCS: 36415; 80053; 80061; 81003; 82607; 82746; 83090; 83921; 84153; 84443; 85025; 86617; 86618; 87468; 87469; 87478; 87484; 87798

== ENCOUNTER 2025-01-28 08:23 | Day surgery (SDC) | payer OTHER, SELFPAY ==
--- OUTSIDE RECORDS SUMMARY | 2025-01-10 11:39 | XMS_ITS | Patient Health Record ---
Author Organization [facility] Address [address] [place] [address] Care Team Providers Care Exhibit Cleaner Name Role Phone MACARIO HAUSER Primary Care Provider Jose Dubon Jr Unavailable Allergies No Known Allergies Reason For Referral No Information Medications Medication SIG (Take, Route, Frequency, Duration) Notes Start Date End Date Status Lisinopril 20 MG 1 tablet Orally Once a day Active oxyCODONE HCl 10 MG 1 tablet as needed Orally every 6 hrs Active PARoxetine HCl 40 MG 1 tablet in the morning Orally Once a day for 30 day(s) Active hydroCHLOROthiazide 25 MG 1 tablet in th e morning Orally Once a day Active Simvastatin 20 MG 1 tablet in the evening Orally Once a day Active Loperamide HCl 2 MG 1 capsule as needed Orally Four times a day Active Cholestyramine 4 GM TAKE [...] Problem Status W/U Status Risk Notes Problem 268192830 Colon cancer screening (Z12.11) Active confirmed Problem 836388609 Irritable bowel syndrome with diarrhea (K58.0) Active confirmed Problem 168718558 Anemia, unspecif ied type (D64.9) Active confirmed Problem 39246815 Diarrhea, unspecified type (R19.7) Active confirmed Problem 279692622 Gastroesophageal reflux disease, unspecified whether esophagitis present (K21.9) Active confirmed Problem 829094467 Personal history of adenomatous and serrated colon polyps (Z86.0101) Active confirmed Vital Signs Temperature 97.3 degrees Fahrenheit 01/10/2025 Blood pressure diastolic 01 mm Hg 01/10/2025 Height 67.75 in 01/10/2025 Blood pressure systolic 001 mm Hg 01/10/2025 Weight 155 lbs 01/10/2025 BMI 23.74 kg/m2 01/10/2025 Encounters Encounter Location Date Provider Diagnosis [facility] [address] [place] [address] 01/10/2025 Jose Juarez Jr Anemia, unspecified type D64.9 ; Gastroesophageal reflux disease, unspecified whether esophagitis present K21.9 and Personal history of adenomatous and serrated colon polyps Z86.0101 [facility] [address] [place] [address] 10/11/2024 Jose Juarez Jr Assessments Encounter Date Diagnosis (ICD Code) Assessment Notes Treatment Notes Treatment Clinical Notes Section Notes 01/10/2025 Anemia, unspecified type (ICD-10 - D64.9) 01/10/2025 Gastroesophageal reflux disease, unspecified whether esophagitis present (ICD-10 - K21.9) 01/10/2025 Personal history of adenomatous and serrated colon polyps (ICD-10 - Z86.0101) Plan Of Treatment Future Test Test Name Order Date COLONOSCOPY 05/23/2012 COLONOSCOPY 02/25/2016 COLONOSCOPY 10/04/2021 UPPER GI ENDOSCOPY 01/10/2025 COLONOSCOPY 01/10/2025 Next Appt Details Provider Name:Jose ba Jr, 01/28/2025 10:50:00 AM, [address] [facility] , [place], [place], [phone], Insurance Providers Payer Name Payer Address Payer Phone Subscriber Number Group Number Insured Name Patient Relationship to Insured Coverage Start Date Coverage End Date [facility] [address] Attn Claims CAROL Amador [id number] JEROME BENNETT Self - patient is the insured MEDICAID OF [employer] [address] [place] [address] [id number] JEROME BENNETT Self - patient is the insured Medical (General) History Medical History History ICD Code Colonoscopy 11/16, 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
--- OUTSIDE RECORDS SUMMARY | 2025-01-10 11:39 | XMS_ITS ---
Author Organization [facility] Address [address] [place] [address] Care Team Providers Care Security Professionals Name Role Phone MACARIO HAUSER Primary Care Provider Jose Dubon Jr Unavailable REASON FOR VISIT R/S OV Encounters Encounter Location Date Provider Diagnosis [facility] [address] [place] [address] 10/11/2024 Jose Juarez Jr Plan Of Treatment Next Appt Details Provider Name:Jose ab Jr, 01/28/2025 10:50:00 AM, [address] [place] [address] , [place], [place], [phone], Progress Notes * JEROME BENNETTDOB:1955 ( 69 yo M)Acc No.[id number]:10/11/2024 Patient:?JEROME BENNETT :1955???Age:69 Y???Sex:Male Address:[address], [place] [address] * true * Date:? Generated for Printi ng/Fatiag/eTransmitting on:?01/10/2025 11:39 AM EDT
--- OUTSIDE RECORDS SUMMARY | 2025-01-10 11:39 | XMS_ITS ---
Author Organization [facility] Address [address] [place] [address] Care Team Providers Care Display Artist Name Role Phone MACARIO HAUESR Primary Care Provider Jose Dubon Jr Unavailable Allergies No Known Allergies REASON FOR VISIT Patient presents today for IBS Medications Medication SIG (Take, Route, Frequency, Duration) Notes Start Date End Date Status Lisinopril 20 MG 1 tablet Orally Once a day Active hydroCHLOROthiazide 25 MG 1 tablet in e morning Orally Once a day Active Loperamide HCl 2 MG 1 capsule as needed Orally Four times a day Active Cholestyramine 4 GM TAKE 1 PACKET MIXED WITH WATER OR NON-CARBONATED DRINK BY MOUTH ONCE A DAY for 90 Active Diphenoxylate-Atropine 2.5-0.025 MG 3 tablets as needed for diarrhea Orally Three times a day for 30 days 02/08/2023 Active oxyCODONE HCl 10 MG 1 tablet as needed Orally every 6 hrs Active PARoxetine HCl 40 MG 1 tablet in the morning Orally Once a day for 30 day(s) Active Simvastatin 20 MG 1 tablet in the evening Orally Once a day Active Problems Problem Type SNOMED Code ICD Code Onset Dates Problem Status W/U Status Risk Notes Problem 833077082 Anemia, unspecif ied type (D64.9) Active confirmed Problem 229047526 Gastroesophageal reflux disease, unspecified whether esophagitis present (K21.9) Active confirmed Problem 911793560 Personal history of adenomatous and serrated colon polyps (Z86.0101) Active confirmed Vital Signs Temperature 97.3 degrees Fahrenheit 01/11/20 25 Blood pressure systolic 001 mm Hg 01/11/20 25 Blood pressure diastolic 01 mm Hg 025 Height 67.75 in 01/10/2025 Weight 155 lbs 01/10/2025 BMI 23.74 kg/m2 01/10/2025 Encounters Encounter Location Date Provider Diagnosis [facility] [address] [place] [address] 01/10/2025 Jose Juarez Jr Anemia, unspecified type D64.9 ; Gastroesophageal reflux disease, unspecified whether esophagitis present K21.9 and Personal history of adenomatous and serrated colon polyps Z86.0101 Assessments Encounter Date Diagnosis (ICD Code) Assessment Notes Treatment Notes Treatment Clinical Notes Section Notes 01/10/2025 Anemia, unspecified type (ICD-10 - D64.9) 01/10/2025 Gastroesophageal reflux disease, unspecified whether esophagitis present (ICD-10 - K21.9) 01/10/2025 Personal history of adenomatous and serrated colon polyps (ICD-10 - Z86.0101) Plan Of Treatment Future Test Test Name Order Date UPPER GI ENDOSCOPY 01/10/2025 COLONOSCOPY 01/10/2025 Next Appt Details Provider Name:Jose ba Jr, 01/28/2025 10:50:00 AM, [address] [place] [address] , [place], [place], [phone], Progress Notes * JEROME BENNETTDOB:1955 ( 69 yo M)Acc No.[id number]:01/10/2025 Progress Notes Patient:?JEROME BENNETT Provider:?Jose Juarez MD :1955???Age:69 Y???Sex:Male Anselmo e:01/10/2025 Address:[address], [facility] Pcp:MACARIO HAUSER Subjective: * Chief Complaints: * ???1. Patient presents today for IBS. * Medical History:?Colonoscopy 11/16, tubulovillous adenoma greater [...] Screen?Points: 4, Interpretation: Positive.?Miscellaneous:?Marital status: . Occupation: retired. * Medications:?Taking Loperami de HCl 2 MG Capsule 1 capsule as needed Orally Four times a day , Taking PARoxetine HCl 40 MG Tablet 1 tablet in the morning Orally Once a day , Taking oxyCODONE HCl 10 MG Tablet 1 tablet as needed Orally every 6 hrs , Taking Simvastatin 20 MG Tablet 1 tablet in the evening Orally Once a day , Taking hydroCHLOROthiazide 25 MG Tablet 1 tablet in the morning Orally Once a day , Taking Lisinopril 20 MG Tablet 1 tablet Orally Once a day , Taking Diphenoxylate- Atropine 2.5-0.025 MG Tablet 3 tablets as needed for diarrhea Orally Three times a day , Taking Cholestyramine 4 GM Packet TAKE 1 PACKET MIXED WITH WATER OR NON- CARBONATED DRINK BY MOUTH ONCE A DAY , Medication List reviewed and reconciled with the patient * Allergies:?N.K.D.A. Objective: * Vitals:?Wt:155lbs, Ht: 67.75 in, BMI:23.74Index, BP:001/01mm Hg, Temp:97.3, Wt- k.31. Assessment: * Assessment: 1.?Anemia, unspecified type - D64.9 (Primary)???2.?Gastroesophageal reflux disease, unspecified whether esophagitis present - K21.9???3.?Personal history of adenomatous and serrated colon polyps - Z86.0101??? Plan: * Treatment: 2.?Gastroesophageal reflux d isease, unspecified whether esophagitis present?Procedure: UPPER GI ENDOSCOPY (Ordered for 01/10/2025) ?Procedure: COLONOSCOPY (Ordered for 01/10/2025) 3.?Personal history of adeno matous and serrated colon polyps?Procedure: UPPER GI ENDOSCOPY (Ordered for 01/10/2025) ?Procedure: COLONOSCOPY (Ordered for 01/10/2025) * Preventive Medicine:? ??Screenings:?Fall Risk Screening?Fall Risk Assessment:?No falls in the past year,?Screening:?No falls in the past year,?Assessment:?Not performed, no reason specified,?Plan of Care:?Not documented, no reason specified.? * * The named appointment provid er may or may not be the originator of this progress note, and it is not deemed complete until electronically signed by the appointment provider. Sign off status: Pending * Provider:?Jose Juarez MD Date:?0 01/10/2025 Generated for Carlos carbone/Brandie/Kendraitting on:?01/10/2025 11:38 AM EDT
--- OUTSIDE RECORDS SUMMARY | 2025-01-10 11:39 | XMS_ITS ---
Author Organization [facility] Address [address] [facility] [address] [place] [address] Care Team Providers Care Media Relations Associate Name Role Phone MACARIO HAUSER Primary Care Provider Jose Dubon Jr Unavailable [phone] REASON FOR VISIT Patient presents today for IBS Encounters Encounter Location Date Provider Diagnosis [facility] [address] [address] 10/16/2024 Jose Juarez Jr Plan Of Treatment Next Appt Details Provider Name:Jose ba Jr, 01/28/2025 10:50:00 AM, [address] [place] [address] , [place], [place], [phone], Progress Notes * JEROME BENNETTDOB:1955 ( 69 yo M)Acc No.[id number]:10/16/2024 Progress Notes Patient:?JEROME BENNETT Provider:?Jose Juarez MD :1955???Age:69 Y???Sex:Male Anselmo e:10/16/2024 Address:[address], [place] Pcp:MACARIO HAUSER Subjective: * Chief Complaints: * [...] Juarez MD Date:?0 10/16/2024 Generated for Carlos carbone/Brandie/Kendraitting on:?01/10/2025 11:39 AM EDT
[2025-01-24 08:32] VITALS: BMI 23.7
[2025-01-24 08:42] VITALS: BMI 23.7
--- NOTE | 2025-01-27 09:36 | HO.ANESPROP2 ---
Documented by User: Charlene Barboza NP 01/27/25 09:37 HPI - Anesthesia Eval Consult details Narrative: 69yo M for Upper Endoscopy and Colonoscopy PMFSH Active Problems Active Problems: All Active Problems Excessive cerumen in both ear canals (Acute) Forgetfulness (Acute) COPD (chronic obstructive pulmonary disease) (Acute) Cough (Acute) Eczema (Acute) Tick bite (Acute) Family history of pancreatic cancer (Acute) Normochromic normocytic anemia (Acute) Weight loss (Acute) Fall (Acute) Right shoulder pain (Acute) Elevated liver enzymes (Acute) Anemia (Acute) Encounter for physical examination (Acute) Encounter for screening for malignant neoplasm of prostate (Acute) Encounter for physical examination (Acute) Elevated fasting blood sugar (Acute) Pain with ejaculation (Acute) Dysuria (Acute) Jaw pain (Acute) Hyperlipidemia, unspecified (Acute) Past Medical History Medical History (Updated 01/28/25 @ 09:07 by Carla Tobin RN) Rotator cuff tear GERD (gastroesophageal reflux disease) Eczema Normochromic normocytic anemia COPD (chronic obstructive pulmonary disease) Anxiety Elevated cholesterol HTN (hypertension) IBS (irritable bowel syndrome) Family History Family History Mother Substance use disorder Mental health disorder Sister Mental health disorder Substance use disorder Family history of problems with anesthesia: No Surgical History Surgical History History of bone marrow biopsy Hx of hand surgery Hx of umbilical hernia repair History of appendectomy Hx of tonsillectomy Hx of colonoscopy History of Problems with Anesthesia: No Social History Social History Housing: House Are you a primary intensive care ambulance paramedic to a significant other at home: No Patient Tobacco Use Status: Former Tobacco user Tobacco use type: Cigarette Years Smoked: 20 e-Cigarette/Vaping Use: Never Used Second Hand Smoke Exposure: No Use of substances other than those prescribed or required for medical reasons: Yes Substance Use Type: Marijuana Substance Use Type Other:: advised to hole 3-5 days pre-op Substance Use Frequency: Occasionally Have you been hit, kicked, punched, or otherwise hurt by someone within the past year? If so, by whom?: No Spiritual Healthcare Practices: no Uatsdin Healthcare Practices: no Cultural Healthcare Practices: no Advance Directives Information Provided: Yes (as above noted) Advance Directives on File: No Poor oral hygiene: No service: No Current occupational status: retired Cognitive needs: No Hearing needs: No Vision needs: No Meds Allergies Allergy/AdvReac Type Severity Reaction Status Date / Time No Known Allergies Allergy Verified 01/28/25 09:07 Home Medications ?Medication ?Instructions ?Recorded ?Confirmed ?Last Taken ?Type cholestyramine (with sugar) 4 gram 1 ea PO DAILY 10/02/23 01/28/25 Unknown History powder for susp in a packet oxycodone 10 mg tablet 10 mg PO DAILY 12/17/24 01/28/25 Unknown History Exam Height,Weight and Vital Signs: Height 5 ft 7.75 in Weight 70.307 kg Assessment and Plan Assessment Anesthesia Assessment: Chart Reviewed Final Anesthetic Review Family History of Problems with Anesthesia: No History of Problems with Anesthesia: No Documented by User: Chao Skelton MD 01/28/25 11:48 [facility] Past Medical History Medical History (Updated 01/28/25 @ 09:07 by Carla Tobin RN) Rotator cuff tear GERD (gastroesophageal reflux disease) Eczema Normochromic normocytic anemia COPD (chronic obstructive pulmonary disease) Anxiety Elevated cholesterol HTN (hypertension) IBS (irritable bowel syndrome) Family History Family History Mother Substance use disorder Mental health disorder Sister Mental health disorder Substance use disorder Surgical History Surgical History History of bone marrow biopsy Hx of hand surgery Hx of umbilical hernia repair History of appendectomy Hx of tonsillectomy Hx of colonoscopy Social History Social History Housing: House Are you a primary intensive care ambulance paramedic to a significant other at home: No Patient Tobacco Use Status: Former Tobacco user Tobacco use type: Cigarette Years Smoked: 20 e-Cigarette/Vaping Use: Never Used Second Hand Smoke Exposure: No Use of substances other than those prescribed or required for medical reasons: Yes Substance Use Type: Marijuana Substance Use Type Other:: advised to hole 3-5 days pre-op Substance Use Frequency: Occasionally Have you been hit, kicked, punched, or otherwise hurt by someone within the past year? If so, by whom?: No Spiritual Healthcare Practices: no Uatsdin Healthcare Practices: no Cultural Healthcare Practices: no Advance Directives Information Provided: Yes (as above noted) Advance Directives on File: No Poor oral hygiene: No service: No Current occupational status: retired Cognitive needs: No Hearing needs: No Vision needs: No Meds Allergies Allergy/AdvReac Type Severity Reaction Status Date / Time No Known Allergies Allergy Verified 01/28/25 09:07 Home Medications ?Medication ?Instructions ?Recorded ?Confirmed ?Last Taken ?Type cholestyramine (with sugar) 4 gram 1 ea PO DAILY 10/02/23 01/28/25 Unknown History powder for susp in a packet oxycodone 10 mg tablet 10 mg PO DAILY 12/17/24 01/28/25 Unknown History Exam Airway Mallampati Class: II TM Dist: >3cm Neck ROM: Full Loose/Missing/Broken Teeth: Yes Assessment and Plan Assessment Anesthesia Assessment: Anesthesia Plan Discussed Final Anesthetic Review NPO: Yes ASA Class: III Final Preanesthetic Review: No Changes in Pt Med Stat, Meds/Allgs Chart Reviewed, Consent Obtained/Reviewed and Anes Risks/Benef Reviewed Patient Risk: Intermediate Procedure Risk: Low Anesthetic Plan Anesthetic Plan: MAC: Disposition: Standard PACU
[2025-01-28 09:08] VITALS: BMI 22.7
[2025-01-28 09:17] VITALS: BP 129/63; PULSE 62; RESP 15; TEMP 36.9; O2SAT 98
[2025-01-28] MEDS: Lactated Ringers 1,000 ML 100 ML IVCONT (09:19)
--- NOTE | 2025-01-28 09:51 | MHC.SHP ---
Pre-Procedural Eval Section A - 24 Hr Update-Section A only Date of Service: 01/28/25 The patient is an INPATIENT: No Changes since office visit: No Cold of Flu in the past 2 weeks, No New Medical Problems, No Changes in Medication and No Patient answered all questions The patient has been examined within 24 hours of the surgical procedure. The History & Physical has been completed within 30 days and I have reviewed it.: Yes Section B - Complete if H&P > 30 days Chief Complaint: anemia,hx colon polyps, Allergies: Allergies Allergy/AdvReac Type Severity Reaction Status Date / Time No Known Allergies Allergy Verified 01/28/25 09:07 Plan I have reviewed the history and physical and performed a pertinent physical examination on my patient. No changes have occurred unless specified. Time Spent With Patient Time: Total time managing care of this patient today ____ minutes.
[2025-01-28 11:02] VITALS: BP 112/64; PULSE 67; RESP 18; TEMP 36.6; O2SAT 99
[2025-01-28 11:17] VITALS: BP 110/62; PULSE 60; RESP 20; TEMP 36.6; O2SAT 98
--- NOTE | 2025-01-28 11:49 | OP_ITS ---
DATE OF SERVICE: 01/28/2025 SURGEON: Jose Juarez MD INDICATIONS: Anemia, gastroesophageal reflux disease, personal history of adenomatous colon polyps. PREOPERATIVE DIAGNOSIS: POSTOPERATIVE DIAGNOSIS: PROCEDURE PERFORMED: Upper endoscopy with biopsy, colonoscopy to the terminal ileum with biopsy and snare cautery of colon polyp. ESTIMATED BLOOD LOSS: COMPLICATIONS: ANESTHESIA: Monitored anesthesia care. ASSISTANTS: SPECIMENS: DESCRIPTION OF PROCEDURE: A history and physical was performed. The risks and benefits of the procedure were explained to the patient and informed consent was obtained. The patient was placed in the left lateral decubitus position. The Olympus video gastroscope was introduced into the esophagus, stomach, and duodenum. Examination was performed and the scope was removed. He was repositioned for colonoscopy. A digital rectal exam was performed and was found to be normal. The Olympus pediatric video colonoscope was introduced into the rectum and advanced to the cecum. The cecum was identified by transillumination, palpation, and identification of ileocecal valve. Examination was performed and the scope was removed. He tolerated both procedures well and was returned to recovery area in stable condition. FINDINGS: Esophagus: The esophagus was normal. There was a nonobstructive Schatzki ring with a small sliding hiatal hernia. The EG junction was slightly irregular, but there was no evidence of Sparks esophagus or esophagitis. Stomach: The stomach showed several benign-appearing polyps measuring less than 5 mm in the fundus consistent with fundic colon polyps. The mucosa appeared normal. Antral biopsies were obtained to evaluate for H pylori. Duodenum: The bulb and 2nd portion were normal. Biopsies were obtained from the 2nd portion to rule out malabsorption. Colonoscopy: The terminal ileum was examined and appeared normal. In the cecum just below the ileocecal valve, was a small 9 mm flat polyp, which was biopsied. The polyp was not amenable to snare resection based on its location, so the snare tip was used to cauterize the remnants of the polyp. All polypoid tissue appeared to have been cauterized at the termination of the procedure. It is unclear whether this was the polyp that was found at his last visit. The remainder of the colonic mucosa appeared within normal limits without evidence of masses or ulcers. No other polyps were identified. Retroflexed examination showed some small internal hemorrhoids. IMPRESSION: 1. Schatzki ring, nonobstructive. 2. Hiatal hernia. 3. Colon polyps. 4. Gastric polyps. RECOMMENDATION: Follow up the biopsy results. MD FELY Lynch/SIS / [id number]
== END 2025-01-28 11:50 | disposition home or self-care (01) ==
PROVIDERS: PCP Nurse Practitioner Family; Visit Provider Internal Medicine Gastroenterology
PROC: (CPT 45385; principal; 2025-01-28 10:00)
DX: D64.9 Anemia, unspecified (principal); Z86.0101 Personal history of adenomatous and serrated colon polyps; K63.5 Polyp of colon; K58.0 Irritable bowel syndrome with diarrhea; K29.50 Unspecified chronic gastritis without bleeding; B96.81 Helicobacter pylori [H. pylori] as the cause of diseases classified elsewhere; K21.9 Gastro-esophageal reflux disease without esophagitis; K31.7 Polyp of stomach and duodenum; K22.2 Esophageal obstruction; K44.9 Diaphragmatic hernia without obstruction or gangrene; I10 Essential (primary) hypertension; E78.5 Hyperlipidemia, unspecified; F41.9 Anxiety disorder, unspecified; Z79.899 Other long term (current) drug therapy; Z98.890 Other specified postprocedural states; Z87.891 Personal history of nicotine dependence
CPT/HCPCS: 45385; 45380; 43239; 88305; 88342; J2704

== ENCOUNTER 2025-02-05 08:17 | Outpatient (REF) | payer OTHER, SELFPAY ==
--- NOTE | ~2025-02-05 | CT_ITS ---
CLINICAL HISTORY: R05.9 - Cough, unspecified CT chest without contrast Comparison: CT/SR - CT CHEST WO IV CON - 01/06/23 15:40 EDT Findings: Normal heart size. Mild coronary artery calcifications. The visualized thyroid and mediastinum are unremarkable. The lungs are clear. No ground-glass opacity consolidation or pleural effusion. Right kidney cyst, similar to the prior study. No acute abnormality of the visualized abdomen. No acute fractures. IMPRESSION: No acute cardiopulmonary disease. This document has been electronically signed by: Michelle Ignacio MD on 02/05/2025 14:53:34
--- OUTSIDE RECORDS SUMMARY | 2025-02-05 08:26 | XMS_ITS ---
Author Organization [facility] Address [address] [place] [address] Care Team Providers Care Agency Recruiter Name Role Phone MACARIO HAUSER Primary Care Provider Jose Dubon Jr Unavailable [phone] Allergies No Known Allergies REASON FOR VISIT [...] Problem Status W/U Status Risk Notes Problem 630906511 Anemia, unspecif ied type (D64.9) Active confirmed Problem 828978424 Gastroesophageal reflux disease, unspecified whether esophagitis present (K21.9) Active confirmed Problem 900995298 Personal history of adenomatous and serrated colon polyps (Z86.0101) Active confirmed Vital Signs Temperature 97.3 degrees Fahrenheit 01/11/20 25 Blood pressure systolic 001 mm Hg 01/11/20 25 Blood pressure diastolic 01 mm Hg 04/18/2 025 Height 67.75 in 01/10/2025 Weight 155 lbs 01/10/2025 BMI 23.74 kg/m2 01/10/2025 Encounters Encounter Location Date Provider Diagnosis [facility] [address] [place] [address] 01/10/2025 Jose Juarez Jr Anemia, unspecified type D64.9 ; Gastroesophageal reflux disease, unspecified whether esophagitis present K21.9 and Personal history of adenomatous and serrated colon polyps Z86.0101 Assessments Encounter Date Diagnosis (ICD Code) Assessment Notes Treatment Notes Treatment Clinical Notes Section Notes 01/10/2025 Anemia, unspecified type (ICD-10 - D64.9) We discussed hi s symptoms today. We discussed anemia. We recommended further evaluation with upper endoscopy and colonoscopy because of his anemia symptoms. He is aware of risks and benefits and agrees to proceed. This will be scheduled at his convenience. He is advised to stop iron 1 week before the procedure, and hydrochlorothiazide the day before the procedure. 01/10/2025 Gastroesophageal reflux disease, unspecified whether esophagitis present (ICD-10 - K21.9) We discussed his symptoms today. We discussed anemia. We recommended further evaluation with upper endoscopy and colonoscopy because of his anemia symptoms. He is aware of risks and benefits and agrees to proceed. This will be scheduled at his convenience. He is advised to stop iron 1 week before the procedure, and hydrochlorothiazide the day before the procedure. 01/10/2025 Personal history of adenomatous and serrated colon polyps (ICD-10 - Z86.0101) We discussed his symptoms today. We discussed anemia. We recommended further evaluation with upper endoscopy and colonoscopy because of his anemia symptoms. He is aware of risks and benefits and agrees to proceed. This will be scheduled at his convenience. He is advised to stop iron 1 week before the procedure, and hydrochlorothiazide the day before the procedure. Plan Of Treatment Future Test Test Name Order Date UPPER GI ENDOSCOPY 01/10/2025 COLONOSCOPY 01/10/2025 Next Appt Details Follow Up: 1 Year, Reason: Provider Name:Jose ba Jr, 05/19/2025 10:40:00 AM, [address], [address], [place], [address], Progress Notes * FIDELINA BENNETT:1955 ( 69 yo M)Acc No.[id number]:01/10/2025 Progress Notes Patient:?KWABENA BENNETT Provider:?Jose Juarez MD :1955???Age:69 Y???Sex:Male Anselmo e:01/10/2025 Address:[address] [facility], [facility] Pcp:MACARIO HAUSER Subjective: * Chief Complaints: * ???1. Patient presents today for IBS. * HPI: ???New symptom(s):? Kwabena is a pleasant 69-year-old man seen today in follow-up of IBS and recent problems with anemia. He was last seen in September 2023 for follow-up of IBS with diarrhea. He was diagnosed with anemia over the past year with a hemoglobin of 8.5. He was seen by Dr. Oconnor and prescribed iron. Hemoglobin improved to 9.5 but was down to 8.2 about 2 to 3 weeks ago. He has noted no rectal bleeding. Stool testing has not been done. He does describe bad acid reflux symptoms in the past. This has been treated with diet and exercise. He does have a history of colon polyps which are reviewed. * ROS:?General/Constitutional:?Change in appetite?denies.?Fatigue?denies.?ENT:?Patient denies?difficulty swallowing.?Respiratory:?Patient denies?shortness of breath.?Cardiovascular:?Patient denies?chest pain.?Gastrointestinal:?Comments?See HPI for details.?Genitourinary:?Difficulty urinating?denies.?Incontinence?denies.?Musculoskeletal:?Patient denies?muscle aches.?Skin:?Patient denies?pruritis.?Neurologic:?Patient denies?low back pain.?Psychiatric:?Patient denies?mental or physical abuse.? * Medical History:?Colonoscopy 11/16, tubulovillous adenoma greater [...] in, BMI:23.74Index, BP:001/01mm Hg, Temp:97.3, Wt- k.31. * Examination: ???General Examination: ?GENERAL APPEARANCE:?in no acute distress.?HEAD:?normocephalic.?EYES:?sclera non-icteric.?ORAL CAVITY:?mucosa moist.?NECK/THYROID:?no lymphadenopathy.?SKIN:?anicteric.?HEART:?S1, S2 normal, no murmurs.?LUNGS:?clear to auscultation bilaterally.?CHEST:?normal shape and expansion.?ABDOMEN:?soft, nontender, nondistended, bowel sounds present, no organomegaly .?EXTREMITIES:?no clubbing, cyanosis, or edema.?PSYCH:?cognitive function intact.? Assessment: * Assessment: 1.?Anemia, unspecified type - D64.9 (Primary)???2.?Gastroesophageal reflux disease, unspecified whether esophagitis present - K21.9???3.?Personal history of adenomatous and serrated colon polyps - Z86.0101??? We discussed his symptoms to day. We discussed anemia. We recommended further evaluation with upper endoscopy and colonoscopy because of his anemia symptoms. He is aware of risks and benefits and agrees to proceed. This will be scheduled at his convenience. He is advised to stop iron 1 week before the procedure, and hydrochlorothiazide the day before the procedure. Plan: * Treatment: ?Procedure: COLONOSCOPY (Ordered for 01/10/2025)* sched for 01/28/25 at 10:50 am macmiralax 2.?Gastroesophageal reflux disease, unspecified whether esophagitis present?Procedure: UPPER GI ENDOSCOPY (Ordered for 01/10/2025)* sched for 01/28/25 at 10:50 am mac ?Procedure: COLONOSCOPY (Ordered for 01/10/2025)* sched for 01/28/25 at 10:50 am macmiralax 3.?Personal history of adenomatous and serrated colon polyps?Procedure: UPPER GI ENDOSCOPY (Ordered for 01/10/2025)* sched for 01/28/25 at 10:50 am mac ?Procedure: COLONOSCOPY (Ordered for 01/10/2025)* sched for 01/28/25 at 10:50 am macmiralax * Procedure Codes:?3017F COLOR ECTAL CA SCREEN DOC REV, G9902 Pt scrn tbco and id as user, G9744 PATIENT NOT ELIG D/T ACTIVE DX HTN * Preventive Medicine:? ??Screenings:?Fall Risk Screening?Fall Risk Assessment:?No falls in the past year,?Screening:?No falls in the past year,?Assessment:?Not performed, no reason specified,?Plan of Care:?Not documented, no reason specified.? * Follow Up:?1 Year * * Sign off status: Completed true * Provider:?Jose Juarez MD Date:?0 01/10/2025 Generated for Carlos carbone/Brandie/eTransmitting on:?02/05/2025 08:26 AM EDT History and Physical Notes * HPI (History of Present Illness) Category Sub-Category Detail Notes Category Not es New symptom(s) Kwabena is a pleasant 69-year-old man seen today in follow-up of IBS and recent problems with anemia. He was last seen in September 2023 for follow-up of IBS with diarrhea. He was diagnosed with anemia over the past year with a hemoglobin of 8.5. He was seen by Dr. Oconnor and prescribed iron. Hemoglobin improved to 9.5 but was down to 8.2 about 2 to 3 weeks ago. He has noted no rectal bleeding. Stool testing has not been done. He does describe bad acid reflux symptoms in the past. This has been treated with diet and exercise. He does have a history of colon polyps which are reviewed. Examination Category Sub-Category Detail Notes Category Not es General Examination GENERAL APPEARANCE: in no acute di stress HEAD: normocephalic EYES: sclera non-icteric NECK/THYROID: no lymphadenopathy HEART: S1, S2 normal, no mu rmurs CHEST: normal shape and exp ansion LUNGS: clear to auscultatio n bilaterally ABDOMEN: soft, nontender, non distended, bowel sounds present, no organomegaly SKIN: anicteric EXTREMITIES: no clubbing, cyanosi s, or edema PSYCH: cognitive function i ntact ORAL CAVITY: mucosa moist
--- OUTSIDE RECORDS SUMMARY | 2025-02-05 08:26 | XMS_ITS | Patient Health Record ---
Author Organization [facility] Address [address] [place] [address] Care Team Providers Care Bank Teller Name Role Phone MACARIO NOEL Primary Care Provider Jose Dubon Jr Unavailable Allergies No Known Allergies Results Component Value Reference Range Notes Pathology Reviewed date:01/31/2025 02:18:35 PM Interpretation: Performing Lab:[facility], [address] [place] [address] Notes/Report: Name: Kwabena Bennett Ag e/Sex: 69/M : 1955 Unit#: [id number] Attend Dr: Jose Juarez MD Re01/28/25 Status : [facility] Location: [facility] Disch: SPEC : [id number] RECD : 01/28/25 STATUS: PIERRE FIORE NUM: [id number] JILLIAN: 01/28/25-[address] [facility] DR: Jose Juarez MD ENTERED: 01/28/25- 15 SP TYPE: Surgical OTHR DR: Macario Noel [facility]- ORDERED: HE Stain/9, Gross Micro L4/3, IHC, H. pylori Diagnosis A. Duodenum, biopsy: Duodenal mucosa with preserved villi and no specific change. B. Gastric antrum, b iopsy: Chronic Helicobacter gastritis with mild-moderate activity; negative for intesti nal metaplasia and dysplasia. C. Colon, cecal poly p, biopsy: Colonic mucosa with no specific change; no adenomatous dysplasia seen. Clinical History Pre-Op Dx: Anemia, h x colon polyps Post-Op Dx: Hiatal h ernia, gastric polyps, Schatzki's ring, colon polyps Microscopic Description Multiple microscopic sections reviewed. Immunostain for H. pylori on B is positive with appropriate control. Material Received A. Duodenal biopsy B. Antral biopsy C. Cecum polyp biopsy Gross Description Received in three parts. Part A: Received in formalin labeled ?duodenum biopsies? are 2 murdock-pink irregular tissue fragments each measu ring 0.2 cm, submitted in toto in a cassette labeled A. Part B: Received in formalin labeled ?antral biopsies? are 2 murdock irregular and rectangular tissue fragments sandie suring 0.2 and 0.45 cm, submitted in toto in a cassette labeled B. Part C: Received in formalin labeled ?polyp cecum are 3 murdock-pink irregular tissue fragments ranging fr om 0.15-0.35 cm, submitted in toto in a cassette labeled C. CEDS Special studies orde red and performed: Immunostain for H. pylori on B1. CONTINUED ON NEXT PAGE Name: Kwabena Bennett ge/Sex: 69/M : 1955 Unit#: [id number] Attend Dr: Jose Juarez MD Re01/28/25 [place] [facility] [place] [facility] Disch: SPEC : [id number] RECD : 01/28/25 STATUS: PIERRE FIORE NUM: [id number] JILLIAN: 01/28/[address] [facility] [address]: Jose Juarez MD ENTERED: 01/28/25- 15 SP TYPE: Surgical OTHR DR: Macario Noel-FELY ORDERED: HE Stain/9, Gross Micro L4/3, IHC, H. pylori Copies To: Jose Juarez MD [facility] [address] [place] [address] [address] [place], [place] [id number] Macario NoelFELY [address] [address] Signed (si gnature on file) Misty Henderson 01/30/25 1028 END OF REPORT Reason For Referral No Information Medications Medication [...] Active hydroCHLOROthiazide 25 MG 1 tablet in morning Orally Once a day Active Simvastatin 20 MG 1 tablet in the evening Orally Once a day Active Tetracycline HCl 500 MG 1 Orally 4 times daily for 14 days 01/31/2025 Active metroNIDAZOLE 500 MG 1 tablet Orally 4 times daily for 14 days 01/31/2025 Active Omeprazole 20 MG 1 Orally twice daily for 14 days 01/31/2025 Active Loperamide HCl 2 MG 1 capsule as needed Orally Four times a day Active Bismuth Subsalicylate 525 MG 1 Orally 4 times daily for 14 days 01/31/2025 Active Cholestyramine 4 GM TAKE 1 PACKET [...] Problem Status W/U Status Risk Notes Problem 722769263 Colon cancer screening (Z12.11) Active confirmed Problem 733351092 Irritable bowel syndrome with diarrhea (K58.0) Active confirmed Problem 150994057 Anemia, unspecif ied type (D64.9) Active confirmed Problem 95099261 Diarrhea, unspecified type (R19.7) Active confirmed Problem 975909169 Gastroesophageal reflux disease, unspecified whether esophagitis present (K21.9) Active confirmed Problem 481064328 Personal history of adenomatous and serrated colon polyps (Z86.0101) Active confirmed Vital Signs Temperature 97.3 degrees Fahrenheit 01/10/2025 Blood pressure diastolic 01 mm Hg 01/10/2025 Height 67.75 in 01/10/2025 Blood pressure systolic 001 mm Hg 01/10/2025 Weight 155 lbs 01/10/2025 BMI 23.74 kg/m2 01/10/2025 Encounters Encounter Location Date Provider Diagnosis [facility] Outpatient [address] [place] [phone] 01/28/2025 Jose Juarez Jr Colon cancer screening Z12.11 ; Personal history of adenomatous and serrated colon polyps Z86.0101 ; Schatzki's ring K22.2 and Hiatal hernia K44.9 [facility] [address] [place] [address] 01/10/2025 Jose Juarez Jr Anemia, unspecified type D64.9 ; Gastroesophageal reflux disease, unspecified whether esophagitis present K21.9 and Personal history of adenomatous and serrated colon polyps Z86.0101 [facility] [address] [address] 10/11/2024 Jose Juarez Jr [facility] [address] 01/31/2025 Jose Juarez Jr Helicobacter pylori (H. pylori) A04.8 Assessments Encounter Date Diagnosis (ICD Code) Assessment Notes Treatment Notes Treatment Clinical Notes Section Notes 01/28/2025 Colon cancer screening (ICD-10 - Z12.11) 01/28/2025 Personal history of adenomatous and serrated colon polyps (ICD-10 - Z86.0101) 01/10/2025 Anemia, unspecified type (ICD-10 - D64.9) [...] and hydrochlorothiazide the day before the procedure. 01/31/2025 Helicobacter pylori (H. pylori) (ICD-10 - A04.8) 01/28/2025 Schatzki's ring (ICD-10 - K22.2) 01/10/2025 Personal history of adenomatous and serrated [...] and hydrochlorothiazide the day before the procedure. 01/28/2025 Hiatal hernia (ICD-10 - K44.9) Plan Of Treatment Pending Test Test Name Order Date H pylori Ag Stool 01/31/2025 Future Test Test Name Order Date COLONOSCOPY 05/23/2012 COLONOSCOPY 02/25/2016 COLONOSCOPY 10/04/2021 UPPER GI ENDOSCOPY 01/10/2025 COLONOSCOPY 01/10/2025 Next Appt Details Provider Name:Jose ba , 05/19/2025 10:40:00 AM, [address] [place] [address], [address], [place], [address], Insurance Providers Payer Name Payer Address Payer Phone Subscriber Number Group Number Insured Name Patient Relationship to Insured Coverage Start Date Coverage End Date [facility] [address] Attn Claims CAROL Amador [id number] KWABENA BENNETT Self - patient is the insured MEDICAID OF [facility] [address] [place] [phone] [id number] KWABENA BENNETT Self - patient is the insured Medical (General) History Medical History History ICD Code Colonoscopy 11/16, 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
--- OUTSIDE RECORDS SUMMARY | 2025-02-05 08:26 | XMS_ITS ---
Author Organization [facility] Address [address] [place] [address] Care Team Providers Care Information Coordinator Name Role Phone MACARIO HAUSER Primary Care Provider Jose Dubno Jr Unavailable [phone] REASON FOR VISIT path Medications Medication SIG (Take, Route, Frequency, Duration) Notes Start Date End Date Status Tetracycline HCl 500 MG 1 Orally 4 times daily for 14 days 01/31/2025 Active metroNIDAZOLE 500 MG 1 tablet Orally 4 t imes daily for 14 days 01/31/2025 Active Omeprazole 20 MG 1 Orally twice daily for 14 days 01/31/2025 Active Bismuth Subsalicylate 525 MG 1 Orally 4 times daily for 14 days 01/31/2025 Active Encounters Encounter Location Date Provider Diagnosis [address] [address] 01/31/2025 Jose Juarez Jr Helicobacter pylori (H. pylori) A04.8 Assessments Encounter Date Diagnosis (ICD Code) Assessment Notes Treatment Notes Treatment Clinical Notes Section Notes 01/31/2025 Helicobacter pylori (H. pylori) (ICD-10 - A04.8) Plan Of Treatment Medication Medication Name Sig Start Date Stop Date Notes Tetracycline HCl 500 MG 1 Orally 4 times daily for 14 days 01/31/2025 metroNIDAZOLE 500 MG 1 tablet Orally 4 t imes daily for 14 days 01/31/2025 Omeprazole 20 MG 1 Orally twice daily for 14 days 01/31/2025 Bismuth Subsalicylate 525 MG 1 Orally 4 times daily for 14 days 01/31/2025 Pending Test Test Name Order Date H pylori Ag Stool 01/31/2025 Next Appt Details Provider Name:Jose pérezd , 05/19/2025 10:40:00 AM, [address], [address], [place], [address], Progress Notes * JEROME BENNETTDOB:1955 ( 69 yo M)Acc No.[id number]:01/31/2025 Patient:?JEROME BENNETT :1955???Age:69 Y???Sex:Male Address: [address], [place] [address] * Refills? Start Omeprazole Capsule Delayed Release, 20 MG, Orally, 28, 1, twice daily, 14 days, Refills=0 Start Bismuth Subsalicylate Tablet, 525 MG, Orally, 56, 1, 4 times daily, 14 days, Refills=0 Start Tetracycline HCl Capsule, 500 MG, Orally, 56, 1, 4 times daily, 14 days, Refills=0 Start metroNIDAZOLE Tablet, 500 MG, Orally, 56, 1 tablet, 4 times daily, 14 days, Refills=0 Subjective: * Chief Complaints: * ???Path * Medical History:? * Surgical History:? * Hospitalization/Major Diagno stic Procedure:? * Medications:? Objective: * Vitals:? * Physical Examination:? Assessment: * Assessment: 1.?Helicobacter pylori (H. p ylori) - A04.8 (Primary)??? Plan: * Treatment: * Procedure Codes:? * true * Date:? Generated for Carlos carbone/Brandie/eTransmitting on:?02/05/2025 08:25 AM EDT
--- OUTSIDE RECORDS SUMMARY | 2025-02-05 08:26 | XMS_ITS ---
Author Organization [facility] Address [address] [place] [address] Care Team Providers Care Rn Referral Name Role Phone MACARIO HAUSER Primary Care Provider Jose Dubon Jr Unavailable [phone] REASON FOR VISIT anemia,hx polyps Encounters Encounter Location Date Provider Diagnosis [facility] [address] [place] [phone] 01/28/2025 Jose Juarez Jr Colon cancer screening [...] Next Appt Details Provider Name:Jose ba Jr, 05/19/2025 10:40:00 AM, [address], [address], [place], [address], Progress Notes * JEROME BENNETTDOB:1955 ( 69 yo M)Acc No.[id number]:01/28/2025 EGD and COL/MAC Patient:?JEROME BENNETT Provider:?Jose Juarez MD :1955???Age:69 Y???Sex:Male Anselmo e:01/28/2025 Address[address], [place] Pcp:MACARIO HAUSER Subjective: * Chief Complaints: * ???1. Anemia,hx polyps. * Medical History:? Objective: * Vitals:? Assessment: * Assessment: 1.?Colon cancer screening - Z12.11 (Primary)???2.?Personal history of adenomatous and serrated colon polyps - Z86.0101???3.?Schatzki's ring - K22.2???4.?Hiatal hernia - K44.9??? Plan: * Treatment: * Procedure Codes:?45234 LESIO N REMOVE COLONOSCOPY, 34673 COLONOSCOPY AND BIOPSY, Modifiers: 59 , 0529F INTRVL 3+YRS PTS CLNSCP DOCD, 56555 UPPER GI ENDOSCOPY, BIOPSY, Modifiers: 51 * * The named appointment provid er may or may not be the originator of this progress note, and it is not deemed complete until electronically signed by the appointment provider. Sign off status: Pending * Provider:?Jose Juarez MD Date:?0 01/28/2025 Generated for Carlos carbone/Brandie/Kendraitting on:?02/05/2025 08:26 AM EDT
== END 2025-02-05 08:18 | disposition home or self-care (01) ==
LOC: HO.CT 08:17
PROVIDERS: PCP Nurse Practitioner Family; Visit Provider Nurse Practitioner Family
DX: R05.9 Cough, unspecified (principal); J44.9 Chronic obstructive pulmonary disease, unspecified
CPT/HCPCS: 71250

== ENCOUNTER → 2025-02-05 08:19 | Outpatient (BNV) | payer OTHER, SELFPAY | PROVIDERS: PCP Nurse Practitioner Family; Visit Provider Radiology Diagnostic Radiology | DX: R05.9 Cough, unspecified (principal) | CPT/HCPCS: 71250 ==

== ENCOUNTER 2025-03-08 08:44 | Outpatient (REF) | payer OTHER, SELFPAY ==
--- NOTE | ~2025-03-08 | MR_ITS ---
EXAMINATION: MR BRAIN WITHOUT CONTRAST WITH NEUROQUANT CLINICAL INFORMATION: Family history of epilepsy of the diseases of the nervous system. 69-year-old male. Rule out dementia, Alzheimer's disease. COMPARISON: None TECHNIQUE: Multiplanar multisequence MR imaging of the brain was done without IV contrast. Examination was performed on a 1.5 Evelyne Siemens high-field unit. Standard sequences were utilized. Neuroquantitative analysis was also performed and reported on a separate report included with this examination. FINDINGS: There is no diffusion restriction. There is no intracranial hemorrhage, acute infarction, mass effect, or edema. Ventricles, sulci, and cisterns are normal in size and configuration for patient age. Grossly no asymmetric patterns of atrophy identified. Subtle loss of volume of the hippocampal formations and temporal lobes noted visually. (Refer to the neuroquantitative report). No shift of midline. No abnormal hemosiderin deposition is identified. There are a few scattered punctate and minimally confluent foci of white matter T2 hyperintensity in the periventricular, subcortical, and hemispheric deep white matter, and fabiola. These foci are nonspecific but most statistically most likely relate to small vessel ischemic changes. There is an old lacunar type infarct within the right mid cedillo radiata Midline structures appear normally formed. The pituitary gland appears normal. Posterior fossa structures appear normal. Cerebellar tonsils are appropriately located. Major flow voids are preserved within the skull base. The globes and orbital contents demonstrate no abnormalities. There is no significant paranasal sinus disease. The mastoids and tympanic cavities are normally aerated. Extracranial soft tissues demonstrate no abnormalities. No suspicious bone marrow changes are evident. Mild to moderate TM joint degenerative changes are present left greater than right. Atlantoaxial joint demonstrates mild degenerative changes. MR/MR brain wo con w neuroquant IMPRESSION: 1. No evidence of intracranial hemorrhage, acute infarction, mass effect, or edema. 2. Mild changes of small vessel ischemia. 3. 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 4. Please refer to the neuro quantitative analysis performed and reported separately with this examination. Electronically signed by: Logan Navarro MD 03/10/2025 11:33 AM EDT
--- OUTSIDE RECORDS SUMMARY | 2025-03-08 08:52 | XMS_ITS ---
Author Organization [facility] Address [address] [place] [address] Care Team Providers Care Survey Crew Chief Name Role Phone MACARIO HAUSER Primary Care Provider Jose Dubon Jr Unavailable [phone] REASON FOR VISIT path Medications Medication SIG [...] Active Encounters Encounter Location Date Provider Diagnosis [address] [address] 01/31/2025 Jose Juarez Jr Helicobacter pylori (H. [...] 10:40:00 AM, [address], [address], [place], [address], Progress Notes * JEROME BENNETTDOB:1955 ( 69 yo M)Acc No.[id number]:01/31/2025 Patient:?JEROME BENNETT :1955???Age:69 Y???Sex:Male Address: [address], [place] [address] * Refills? Start Omeprazole Capsule Delayed Release, [...] true * Date:? Generated for Carlos carbone/Brandie/eTransmitting on:?03/08/2025 08:51 AM EDT
== END 2025-03-08 08:45 | disposition home or self-care (01) ==
LOC: HO.MRI 08:44
PROVIDERS: PCP Nurse Practitioner Family; Visit Provider Nurse Practitioner Family
DX: F68.8 Other specified disorders of adult personality and behavior (principal); R68.89 Other general symptoms and signs; Z82.0 Family history of epilepsy and other diseases of the nervous system
CPT/HCPCS: 70551; 76377

== ENCOUNTER → 2025-03-08 08:44 | Outpatient (BNV) | payer OTHER, SELFPAY | PROVIDERS: PCP Nurse Practitioner Family; Visit Provider Radiology Diagnostic Radiology | DX: R90.82 White matter disease, unspecified (principal) | CPT/HCPCS: 70551 ==

== ENCOUNTER 2025-05-12 08:10 | Outpatient (AMB) | payer OTHER, SELFPAY ==
--- NOTE | 2025-05-12 08:15 | MHC.OFFVIS ---
Vital Signs 05/12/25 08:18 Height 5 ft 8 in Weight 148 lb 4 oz BMI 22.5 BP 124/68 Blood Pressure Location Rt brachial Position Sitting Pulse 67 Pulse Source Pulse Oximeter Pulse Oximetry (%) 99 Oxygen Delivery Method Room Air Intake Visit Reasons: INP-Other general symptoms and signs Intake Note: NPV referred by PCP for memory Mortgage Loan Officer Required: No Accompanied by: Self / Same As Patient Allergies No Known Allergies Allergy (Verified 05/12/25 08:19) HPI Comments Details: 69y/o male comes for evaluation of short term memory issues. He has fh/o dementia in his mother, uncles , aunts and his daughter is concerned. Mood- he has depression and is on paroxetine. But recently he broke up with his girlfriend of 20 years and feels down. He sleeps good, always had nightmares even as a child . But his girl friend has complained that he screams and kicks during sleep sometimes. He denies snoring. His memory issues are mild - sometimes misplaces things , difficulty with recall . He is independnat in all his ADLS> [facility] Medical History Nightmares REM behavioral disorder Hiatal hernia Rotator cuff tear GERD (gastroesophageal reflux disease) Eczema Normochromic normocytic anemia COPD (chronic obstructive pulmonary disease) Anxiety Elevated cholesterol HTN (hypertension) IBS (irritable bowel syndrome) Surgical History History of bone marrow biopsy Hx of hand surgery Hx of umbilical hernia repair History of appendectomy Hx of tonsillectomy Hx of colonoscopy Family History Mother Substance use disorder Mental health disorder Sister Mental health disorder Substance use disorder Social History Housing: House Are you a primary healthcare analyst to a significant other at home: No Patient Tobacco Use Status: Former Tobacco user Tobacco use type: Cigarette Years Smoked: 20 e-Cigarette/Vaping Use: Never Used Second Hand Smoke Exposure: No Substance Use Type: Marijuana service: No Current occupational status: retired Cognitive needs: No Hearing needs: No Vision needs: No Physical Exam Vital Signs: Last Vital Signs Pulse 67 05/12/25 08:18 BP 124/68 05/12/25 08:18 Pulse Ox 99 05/12/25 08:18 Oxygen Delivery Method Room Air 05/12/25 08:18 BMI result Body Mass Index 22.5 Const General: cooperative, healthy appearing, comfortable and no acute distress Nutritional Appearance: average body habitus Orientation/consciousness: patient oriented x3 Eyes Pupils: Equal, round and reactive pupils present Neuro General: patient oriented x3, gait normal, tone normal, moves all extremities and no focal motor deficits Cranial nerves: Yes Facial sensation intact/muscles of mastication intact, Yes Equal, round and reactive pupils present, Yes Bilaterally intact EOM present, Yes Nystagmus not present, Yes Normal facial strength present, Yes Midline tongue present, Yes Symmetric palate elevation present and Yes Ability to bilaterally elevate shoulders present Cognition (Neuro): normal cognition Gait exam (Neuro): Normal gait present Motor exam (neuro): 5/5 motor strength present throughout and Normal motor muscle tone present throughout Deep tendon reflexes (DTR's): Right triceps reflex intensity grade: 2+, Left triceps reflex intensity grade: 2+, Rt Biceps (C5, C6): 2+, Left biceps reflex intensity grade: 2+, Right brachioradialis reflex intensity grade: 2+, Left brachioradialis reflex intensity grade: 2+, Right patellar reflex intensity grade: 2+ and Left patellar reflex intensity grade: 2+ Coordination: [id number] test normal Orientation What is the (year) (season) (date) (day) (month)?: year, season, day and month Where are we (state) (county) (town or city) (hospital) (floor)?: state, county, town or city, hospital/clinic and floor Registration Name of 3 unrelated objects clearly and slowly, then ask patient to repeat all 3 of them. (1st repeat determines score. Make sure they can repeat all three): object 1, object 2 and object 3 Attention & Calculation (CHOOSE ONE) Spell WORLD backwards (DLROW): 5 letters Recall Ask patient to repeat the 3 items from question #3.: object 1, object 2 and object 3 Language Show patient a wristwatch & ask what it is. Repeat for pencil.: watch and pencil Ask the patient to repeat the phrase 'No ifs, ands, or buts' after you.: correct Ask the patient to 'take a piece of paper with their right hand' 'fold paper in half' 'place paper on floor': take paper in right hand, fold paper in half and place paper on floor Print the sentence 'CLOSE YOUR EYES' on a piece. If patient actually closes eyes then score.: followed written direction Give patient a blank piece of paper & ask to write a sentence. Score if it contains a noun & verb.: sentence contains subject and verb Ask patient to copy figure of intersecting pentagons exactly. Score if all 10 angles & 2 intersects are included.: all 10 angles present & 2 are intersected Score Score: 29 Assessment & Plan Assessment & Plan (1) Forgetfulness: Comment: did well on MMSE, mood related ? Code(s): R68.89 - Other general symptoms and signs Category: Medical (2) Family history of Alzheimer disease: Comment: Mother, matrenal uncles and AUnts Code(s): Z82.0 - Family history of epilepsy and other diseases of the nervous system Category: Medical (3) REM behavioral disorder: Code(s): G47.52 - REM sleep behavior disorder Category: Medical (4) Nightmares: Code(s): F51.5 - Nightmare disorder Category: Medical Plan Reviewed MRI I will check his ApoE status to see if he is at increased risk for Alzheimer PET AmYloid scan Sleep study to r/o sleep apnea Orders: Orders RT PSG in-lab sleep study Today G47.52 - REM sleep behavior disorder TSH reflex Free T4 Today R68.89 - Other general symptoms and signs, Z82.0 - Family history of epilepsy and other diseases of the nervous system Erythrocyte Sedimentation Rate Today R68.89 - Other general symptoms and signs, Z82.0 - Family history of epilepsy and other diseases of the nervous system Vitamin B12 and Folate Today R68.89 - Other general symptoms and signs, Z82.0 - Family history of epilepsy and other diseases of the nervous system Vitamin D 25-OH (D2 and D3) Today R68.89 - Other general symptoms and signs, Z82.0 - Family history of epilepsy and other diseases of the nervous system Other Ref Test - Misc Today R68.89 - Other general symptoms and signs, Z82.0 - Family history of epilepsy and other diseases of the nervous system Medications: Refilled paroxetine HCl 40 mg PO DAILY 90 tabs 1RF Coding Level of Care Code New Pt Level 4 (00897) Diagnoses Forgetfulness R68.89 Family history of Alzheimer disease Z82.0 REM behavioral disorder G47.52 Nightmares F51.5
[2025-05-12 08:18] VITALS: BP 124/68; PULSE 67; O2SAT 99; BMI 22.5
--- OUTSIDE RECORDS SUMMARY | 2025-05-12 08:25 | XMS_ITS | Patient Health Record ---
Author Organization [facility] Address [address] [place] [address] Care Team Providers Care Grain Elevator Superintendent Name Role Phone MACARIO HAUSER Primary Care Provider Jose Dubon Jr Unavailable [phone] Allergies No Known Allergies Results Component Value Reference Range Notes Pathology Reviewed date:01/31/2025 02:18:35 PM Interpretation: Performing Lab:[facility], [address] [place] [id number] Notes/Report: Reason For Referral No Information Medications Medication SIG (Take, Route, Frequency, Duration) Notes Start Date End Date Status Lisinopril 20 MG 1 tablet Orally Once a day Active oxyCODONE HCl 10 MG 1 tablet as needed Orally every 6 hrs Active Cholestyramine 4 GM TAKE 1 PACKET MIXED WITH WATER OR NON-CARBONATED DRINK BY MOUTH ONCE A DAY for 90 Active PARoxetine HCl 40 MG 1 tablet [...] times daily for 14 days 01/31/2025 Active Diphenoxylate-Atropine 2.5-0.025 MG 3 tablets as needed for diarrhea Orally Three times a day for 30 days 02/08/2023 Active Immunizations Vaccine Route Administration Date Status Comme nts Influenza Unknown 08/11/2021 Administered Influenza Unknown 09/25/2023 Administered Problems Problem Type SNOMED Code ICD Code Onset Dates Problem Status W/U Status Risk Notes Problem 484631269 Colon cancer screening (Z12.11) Active confirmed Problem 962301616 Irritable bowel syndrome with diarrhea (K58.0) Active confirmed Problem 705212330 Anemia, unspecif ied type (D64.9) Active confirmed Problem 39956910 Diarrhea, unspecified type (R19.7) Active confirmed Problem 454141663 Gastroesophageal reflux disease, unspecified whether esophagitis present (K21.9) Active confirmed Problem 906071231 Personal history of adenomatous and serrated colon polyps (Z86.0101) Active confirmed Vital Signs Temperature 97.3 degrees Fahrenheit 01/10/2025 Blood pressure diastolic 01 mm Hg 01/10/2025 Height 67.75 in 01/10/2025 Blood pressure systolic 001 mm Hg 01/10/2025 Weight 155 lbs 01/10/2025 BMI 23.74 kg/m2 01/10/2025 Encounters Encounter Location Date Provider Diagnosis [facility] [address] [place] [id number] 01/28/2025 Jose Juarez Jr Colon cancer screening Z12.11 ; Personal history of adenomatous and serrated colon polyps Z86.0101 ; Schatzki's ring K22.2 and Hiatal hernia K44.9 [facility] [address] [place] [address] 01/10/2025 Jose Juarez Jr Anemia, unspecified type D64.9 ; Gastroesophageal reflux disease, unspecified whether esophagitis present K21.9 and Personal history of adenomatous and serrated colon polyps Z86.0101 [facility] [address] [place] [phone] 10/11/2024 Jose Juarez Jr [facility] [address] [place] [address] 01/31/2025 Jose Juarez Jr Helicobacter pylori (H. [...] Provider Name:Jose ba Jr, 05/19/2025 10:40:00 AM, [address] [place] [address], [place] [address], [place], [address], Insurance Providers Payer Name Payer Address Payer Phone Subscriber Number Group Number Insured Name Patient Relationship to Insured Coverage Start Date Coverage End Date [facility] [address] Attn Claims CAROL Amador [id number] JEROME BENNETT Self - patient is the insured MEDICAID OF [id number] [facility] [address] [place] [address] [id number] JEROME BENNETT Self - patient is the insured Medical (General) History Medical History History ICD Code Colonoscopy 11/16, 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
== END 2025-05-12 09:01 | disposition home or self-care (01) ==
LOC: HO.HSMS 08:11
PROVIDERS: PCP Nurse Practitioner Family; Visit Provider Psychiatry & Neurology Neurology
DX: R68.89 Other general symptoms and signs (principal); Z82.0 Family history of epilepsy and other diseases of the nervous system; G47.52 REM sleep behavior disorder; F51.5 Nightmare disorder
CPT/HCPCS: 99204

== ENCOUNTER 2025-05-12 08:10 | Outpatient (REF) | payer OTHER, SELFPAY ==
[2025-05-12 14:27] LABS: Folate > 20.0 ng/mL (> or = 4.0); Vitamin B12 690 pg/mL (200-900)
[2025-05-16 14:34] LABS: Vitamin D 25-OH, D2 <4 ng/mL; Vitamin D 25-OH, D3 48 ng/mL; Vitamin D 25-OH, Total 48 ng/mL (30-100)
[2025-05-24 17:13] LABS: Apolipoprotein E Genotype E3/E4
== END 2025-05-12 08:11 | disposition home or self-care (01) ==
LOC: HO.HKASLDS 08:10
PROVIDERS: PCP Nurse Practitioner Family; Visit Provider Psychiatry & Neurology Neurology
DX: G47.52 REM sleep behavior disorder (principal); F51.5 Nightmare disorder; R68.89 Other general symptoms and signs; Z82.0 Family history of epilepsy and other diseases of the nervous system
CPT/HCPCS: 36415; 82306; 82542; 82607; 82746; 84443; 85652; 99202

== ENCOUNTER → 2025-06-16 20:30 | Outpatient (REF) | payer OTHER, SELFPAY ==
--- OUTSIDE RECORDS SUMMARY | 2024-10-16 05:20 | XMS_ITS ---
Author Organization [facility] Address [address] [place] [address] Care Team Providers Care Job Putter Up And Ticket Preparer Name Role Phone MACARIO HAUSER Primary Care Provider Jose Dubon Jr Unavailable REASON FOR VISIT Patient presents today for IBS Encounters Encounter Location Date Provider Diagnosis [facility] [address] [place] [address] 10/16/2024 Jose Juarez Jr Plan Of Treatment Next Appt Details Provider Name:Jose ba Jr, 09/24/2025 09:20:00 AM, [address], [address], [place], [address], Progress Notes * JEROME BENNETTDOB:1955 ( 69 yo M)Acc No.[id number]:10/16/2024 Progress Notes Patient: JEROME HILARIO Provider: Marleny Juarez MD :1955 A ge:69 Y S ex:Male Date:10/16/2024 Address[address], [id number] Pcp:MACARIO HAUSER Subjective: * Chief Complaints: * 1 . Patient presents today for IBS. * Medical History: Objective: * Vitals: Assessment: Plan: * Treatment: * * The named appointment provid er may or may not be the originator of this progress note, and it is not deemed complete until electronically signed by the appointment provider. Sign off status: Pending * Provider: Marleny Juarez MD Date: 0 10/16/2024 Generated for Carlos carbone/Brandie/Kendraitting on: 0 06/17/2025 12:48 AM EDT
--- OUTSIDE RECORDS SUMMARY | 2025-01-28 06:00 | XMS_ITS ---
Author Organization [facility] Address [address] [place] [address] Care Team Providers Care Senior Advisor Name Role Phone MACARIO HAUSER Primary Care Provider Jose Dubon Jr Unavailable REASON FOR VISIT anemia,hx polyps Encounters Encounter Location Date Provider Diagnosis [facility] Outpatient [address] [place] [phone] 01/28/2025 Jose Juarez Jr Colon cancer screening Z12.11 ; Personal history of adenomatous and serrated colon polyps Z86.0101 ; Schatzki's ring K22.2 and Hiatal hernia K44.9 Assessments Encounter Date Diagnosis (ICD Code) Assessment Notes Treatment Notes Treatment Clinical Notes Section Notes 01/28/2025 Colon cancer screening (ICD-10 - Z12.11) 01/28/2025 Personal history of adenomatous and serrated colon polyps (ICD-10 - Z86.0101) 01/28/2025 Schatzki's ring (ICD-10 - K22.2) 01/28/2025 Hiatal hernia (ICD-10 - K44.9) Plan Of Treatment Next Appt Details Provider Name:Jose ba Jr, 09/24/2025 09:20:00 AM, [address], [address], [place], [address], Progress Notes * JEROME BENNETTDOB:1955 ( 69 yo M)Acc No.[id number]:01/28/2025 EGD and COL/MAC Patient: Roberta TIERAJEROME BEASLEY Provider: Marleny Juarez MD :1955 A ge:69 Y S ex:Male Date:01/28/2025 Address:[address], [place], [place] Pcp:MACARIO HAUSER Subjective: * Chief Complaints: * 1 . Anemia,hx polyps. * Medical History: Objective: * Vitals: Assessment: * Assessment: 1. C olon cancer screening - Z12.11 (Primary) 2 . P ersonal history of adenomatous and serrated colon polyps - Z86.0101 3 . S chatzki's ring - K22.2 ? 4 . H iatal hernia - K44.9 Plan: * Treatment: * Procedure Codes: 4 5384 LESION REMOVE COLONOSCOPY, 96002 COLONOSCOPY AND BIOPSY, Modifiers: 59 , 0529F INTRVL 3+YRS PTS CLNSCP DOCD, 84774 UPPER GI ENDOSCOPY, BIOPSY, Modifiers: 51 * * The named appointment provid er may or may not be the originator of this progress note, and it is not deemed complete until electronically signed by the appointment provider. Sign off status: Pending * Provider: Marleny Juarez MD Date: 0 01/28/2025 Generated for Carlos carbone/Brandie/Tinransmitting on: 0 06/17/2025 12:48 AM EDT
--- OUTSIDE RECORDS SUMMARY | 2025-05-19 06:40 | XMS_ITS ---
Author Organization [facility] Address [address] [place] [address] Care Team Providers Care Process Pumper Name Role Phone MACARIO HAUSER Primary Care Provider Jose Dubon Jr Unavailable REASON FOR VISIT Patient presents today for a h pylori test Encounters Encounter Location Date Provider Diagnosis [facility] [address] [facility] [address] [place] [phone] 05/19/2025 Jose Juarez Jr Plan Of Treatment Next Appt Details Provider Name:Joes ba Jr, 09/24/2025 09:20:00 AM, [address], [address], [place], [address], Progress Notes * JEROME BENNETTDOB:1955 ( 69 yo M)Acc No.[id number]:05/19/2025 Progress Notes Patient: JEROME HILARIO Provider: Marleny Juarez MD :1955 A ge:69 Y S ex:Male Date:05/19/2025 Address:[address], [id number] Pcp:MACARIO HAUSER Subjective: * Chief Complaints: * 1 . Patient presents today for a h pylori test. * Medical History: Objective: * Vitals: Assessment: Plan: * Treatment: * * The named appointment provid er may or may not be the originator of this progress note, and it is not deemed complete until electronically signed by the appointment provider. Sign off status: Pending * Provider: Marleny Juarez MD Date: 0 05/19/2025 Generated for Carlos carbone/Brandie/Chaz on: 0 06/17/2025 12:48 AM EDT
--- OUTSIDE RECORDS SUMMARY | 2025-06-17 00:49 | XMS_ITS | Patient Health Record ---
Author Organization [facility] Address [address] [place] [address] Care Team Providers Care Corporate Treasury Analyst Name Role Phone MACARIO HAUSER Primary Care Provider Gerry Juarez Jr Jose Unavailable Allergies No Known Allergies Results Component Value Reference Range Notes Pathology Reviewed date:01/31/2025 02:18:35 PM Interpretation: Performing Lab:[facility], [address] [place] [phone] Notes/Report: Reason For Referral No Information Medications [...] Problem Status W/U Status Risk Notes Problem 980077281 Colon cancer screening (Z12.11) Active confirmed Problem 414977323 Irritable bowel syndrome with diarrhea (K58.0) Active confirmed Problem 768955955 Anemia, unspecif ied type (D64.9) Active confirmed Problem 31610660 Diarrhea, unspecified type (R19.7) Active confirmed Problem 560152009 Gastroesophageal reflux disease, unspecified whether esophagitis present (K21.9) Active confirmed Problem 657037754 Personal history of adenomatous and serrated colon polyps (Z86.0101) Active confirmed Vital Signs Temperature 97.3 degrees Fahrenheit 01/10/2025 Blood pressure diastolic 01 mm Hg 01/10/2025 Height 67.75 in 01/10/2025 Blood pressure systolic 001 mm Hg 01/10/2025 Weight 155 lbs 01/10/2025 BMI 23.74 kg/m2 01/10/2025 Encounters Encounter Location Date Provider Diagnosis [facility] [address] [place] [id number] 01/28/2025 Jose Juarez Jr Colon cancer screening Z12.11 ; Personal history of adenomatous and serrated colon polyps Z86.0101 ; Schatzki's ring K22.2 and Hiatal hernia K44.9 [facility] [address] [place] [address] 01/10/2025 Jose Juarez Jr Anemia, unspecified type D64.9 ; Gastroesophageal reflux disease, unspecified whether esophagitis present K21.9 and Personal history of adenomatous and serrated colon polyps Z86.0101 [facility] [address] [place] [phone] 10/11/2024 Jose Juarez Jr [facility] [address] [address] 01/31/2025 Jose Juarez Jr Helicobacter pylori (H. pylori) A04.8 [facility] [address] [address] 05/19/2025 Jose Juarez Jr Assessments Encounter Date Diagnosis [...] Name:Jose ba Jr, 09/24/2025 09:20:00 AM, [address] [place] [address], [address], [place], [address], Insurance Providers Payer Name Payer Address Payer Phone Subscriber Number Group Number Insured Name Patient Relationship to Insured Coverage Start Date Coverage End Date [facility] [address] Attn Claims CAROL Amador [id number] JEROME BENNETT Self - patient is the insured MED[place]ID OF [place] [facility] [address] [place] [address] [id number] JEROME BENNETT Self - patient is the insured Medical (General) History Medical History History ICD Code Colonoscopy 11/16, 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
== END ==
LOC: HO.SL 20:30
PROVIDERS: PCP Nurse Practitioner Family; Visit Provider Psychiatry & Neurology Neurology
DX: Z13.89 Encounter for screening for other disorder (principal)

== ENCOUNTER 2025-08-20 12:45 | Outpatient (AMB) | payer OTHER, SELFPAY ==
--- NOTE | 2025-08-20 12:47 | A.OFFPC_ITS ---
Vital Signs 08/20/25 12:49 Height 5 ft 8 in Weight 149 lb BMI 22.7 BP 120/52 L Blood Pressure Location Lt brachial Position Sitting Respiration 16 Pulse 91 Pulse Source Pulse Oximeter Pulse Oximetry (%) 97 Oxygen Delivery Method Room Air Intake Visit Reasons: Severe depression Shake Backboard Notcher Required: No Accompanied by: Self / Same As Patient Allergies No Known Allergies Allergy (Verified 07/24/25 10:32) Tobacco use date assessed: 08/20/25 Fall risk assessment: No Falls in past year Last assessed Fall Risk: 08/20/25 Dental Screening Dental Screen Date: 08/20/25 Did you have a dental visit in the last 12 months?: No Did you have a dental problem in the last 6 months where you did not have access to dental care?: No Was dental information given to patient?: Patient has dentist HPI Severe depression HPI Details Chief Complaint The patient presents with ongoing depression. History of Present Illness The patient is a 70 year old individual presenting with ongoing depression. The patient has been on paroxetine 40 mg for approximately 20 years for this condition, and a tolerance effect is suspected. There is a strong family history of depression. The patient also reports ongoing anxiety. The patient feels that companionship helps, noting the end of a 20-year relationship about a year ago. The patient has a history of enjoying the companionship of a dog and has a hobby of making ponds and keeping fish. Social History - The patient was in a long-term relatio nship for over 20 years that ended about a year ago. - The patient's daughter and grandchildr en are sources of support. - The patient previously owned a dog and found the companionship beneficial. - Hobbies include making ponds and keepi ng fish. - The patient used to travel frequently but does not travel as much anymore. Health Maintenance - The patient has been seen by a [facility] provider for therapy. - A referral to a psychiatrist is in claudia ce, with an appointment scheduled for n ext month. - Pet therapy was recommended as a form of companionship. Review of Systems - Psychiatric: Reports ongoing depressio n and anxiety. - Denies suicidal or homicidal ideation. Physical Exam General: Cooperative, healthy appearing, comfortable, no acute distress and well developed Orientation: Patient oriented x3 Limitations: No limitations Head: Normal to inspection Ears: Hearing grossly normal bilaterally Nose: Normal external nose present Face and sinus: Normal facial exam Eyes: Appearance normal, both eyes and all related structures Neck: Normal visual inspection and Yes full ROM Respiratory: Normal respiratory effort and able to speak in complete sentences. Clear to auscultation bilaterally Cardiovascular: Regular rate and rhythm. Normal S1 and S2 GI: Normal to inspection. Soft to palpation and nontender Skin: No rashes or lesions noted Neuro: Patient oriented x3 Extremities: Normal to inspection Results Plan Patient was informed and verbally consented to the use of an ambient scribe for clinic note documentation during this visit. 1. Depression The patient presents with ongoing depression and has recently been seen by a behavioral health provider for therapy. There may be a tolerance effect to the current medication, paroxetine 40 mg, which the patient has been taking for about 20 years. An appointment with a psychiatrist is scheduled for next month to further evaluate and manage the condition. Pet therapy was highly recommended, and the patient was encouraged to look at local rescues for a dog to provide companionship. The patient was also encouraged to continue engaging in enjoyable hobbies, such as working on his pond. Follow-up is scheduled for September. 2. Anxiety To address the patient's report of ongoing anxiety, a low-dose booster medication will be initiated. The patient's tolerance and response to this new medication will be assessed at the follow-up visit in September. Input from the psychiatrist's consultation will be integrated into the treatment plan. Discussion Notes I discussed the management of the patient's ongoing depression, noting the long- term use of paroxetine and a possible tolerance effect. I look forward to the psychiatrist's input following the appointment next month. I have decided to add a low-dose booster medication to address concurrent anxiety and will follow up with the patient in September to assess tolerance and efficacy. We discussed the benefits of companionship, and I highly recommended pet therapy, suggesting the patient consider adopting a dog from a local rescue, especially since former barriers like frequent travel are no longer an issue. I encouraged the patient to continue with their hobbies, such as making ponds, as a positive activity. The patient explicitly denied any suicidal or homicidal ideation, stating they have too much to live for, including their daughter and grandchildren. Patient Instructions - Continue taking your paroxetine 40 mg as prescribed. - Please start the new low-dose medicati on for anxiety as we discussed. - It is important to keep your appointme nt with the psychiatrist next month. - I recommend you look into adopting a d og from a local rescue for companionship, as you are not traveling as much now. - Continue with your hobbies, like worki ng on your pond and caring for your fish. - We will have a follow-up appointment i september to see how you are doing. - Please contact me if you have any issu es or if your symptoms get worse. [facility] Medical History (Updated 08/20/25 @ 13:53 by Sunday Noel, [facility]) Nightmares REM behavioral disorder Hiatal hernia Rotator cuff tear GERD (gastroesophageal reflux disease) Eczema Normochromic normocytic anemia COPD (chronic obstructive pulmonary disease) Anxiety Elevated cholesterol HTN (hypertension) IBS (irritable bowel syndrome) Surgical History History of bone marrow biopsy Hx of hand surgery Hx of umbilical hernia repair History of appendectomy Hx of tonsillectomy Hx of colonoscopy Family History Mother Substance use disorder Mental health disorder Sister Mental health disorder Substance use disorder Social History Housing: House Are you a primary chronic care nurse to a significant other at home: No Patient Tobacco Use Status: Former Tobacco user Tobacco use type: Cigarette Years Smoked: 20 e-Cigarette/Vaping Use: Never Used Second Hand Smoke Exposure: No Substance Use Type: Marijuana service: No Current occupational status: retired Cognitive needs: No Hearing needs: No Vision needs: No Questionnaire PHQ-9 Over the last 2 weeks, how often have you been bothered by any of the following problems? 1. Little interest or pleasure in doing things: nearly every day 2. Feeling down, depressed, or hopeless: nearly every day 3. Trouble falling or staying asleep, or sleeping too much: not at all 4. Feeling tired or having little energy: not at all 5. Poor appetite or overeating: not at all 6. Feeling bad about yourself - or that you are a failure or have let yourself or your family down: nearly every day 7. Trouble concentrating on things, such as reading the newspaper or watching television: nearly every day 8. Moving or speaking so slowly that other people could have noticed. Or the opposite - being so fidgety or restless that you have been moving around a lot more than usual: not at all 9. Thoughts that you would be better off or of hurting yourself in some way: not at all Total score: 12 Depression Screening Interpretation: Positive Depression Screening Done: Yes 75665 - PHQ-9 Billing: Yes Source: Developed by Drs. Byron Garcia, Alpa Quijano, Garett Porras and colleagues, with an educational scar from [employer]. Thrive Questionnaire Date Thrive assessed: 12/17/24 I am a: Patient What is your living situation today?: I have a steady place to live Within the past 12 months, did the food you bought not last and you didn't have the money to get more?: Never true Within the past 12 months, did you worry whether your food would run out before you got money to buy more?: Never true Do you have trouble paying for medicines?: No Do you have trouble getting transportation to medical appointments?: No Do you have trouble paying your heating and electricity bill?: No Do you have trouble taking care of your child, family member or friend?: No Do you have trouble with day-to-day activities such as bathing, preparing meals, shopping, managing finances, etc.?: No Are you currently unemployed and looking for a job?: No Are you interested in more education?: No Please select the resources that you would like help with: Food Currently or been in a relationship where the following occur: No concerns reported THRIVE Score: 0 MARJORIE-7 AMB Questionnaire MARJORIE-7 Date MARJORIE - 7 assessed: 08/20/25 Feeling nervous, anxious, or on edge: 3 = Nearly every day Not being able to stop or control worryin = Not at all Worrying too much about different things: 0 = Not at all Trouble relaxin = Nearly every day Being so restless that it is hard to sit still: 0 = Not at all Becoming easily annoyed or irritable: 0 = Not at all Feeling afraid as if something awful might happen: 0 = Not at all Total MARJORIE-7 score (0-4 normal; 5-9 mild; 10-14 moderate; 15-21 severe): 6 Source: Developed by Drs. Byron Garcia, Alpa Quijano, Garett Porras and colleagues, with an educational scar from [employer]. MARJORIE-7 Assessment Billing MARJORIE-7 Assessment Tool: MARJORIE-7 Assessment 13831 Physical exam (Primary Care) Vital Signs: Last Vital Signs Pulse 91 08/20/25 12:49 Resp 16 08/20/25 12:49 BP 120/52 L 08/20/25 12:49 Pulse Ox 97 08/20/25 12:49 Oxygen Delivery Method Room Air 08/20/25 12:49 BMI result Body Mass Index 22.7 Tobacco/Smoking Status: Tobacco use Status Tobacco use date assessed 08/20/25 08/20/25 12:54 Patient Tobacco Use Status Former Tobacco user 08/20/25 12:49 Tobacco use type Cigarette 08/20/25 12:49 e-Cigarette/Vaping Use Never Used 08/20/25 12:49 PHQ-9: PHQ-9 Score PHQ-9: Total score 12 08/20/25 13:02 Depression Screening Interpretation: Positive Thrive Assessment: Date of Thrive Assessment Date Thrive assessed 12/17/24 08/20/25 12:49 Currently or been in a relationship where the following occur: No concerns reported Coding Level of Care Code Est Pt Level 3 (17558) Diagnoses Anxiety F41.9 Depression F32.A Additional Codes MARJORIE-7 Assessment Billing - MARJORIE-7 Assessment Tool: MARJORIE-7 Assessment 39776 ([id number]) PHQ-9 - 88025 - PHQ-9 Billing: Yes ([id number]) Assessment & Plan Assessment & Plan (1) Anxiety: Code(s): F41.9 - Anxiety disorder, unspecified Category: Medical (2) Depression: Code(s): F32.A - Depression, unspecified Category: Medical Plan . Medications: New buspirone 5 mg PO BID 60 tabs 1RF 30 days
[2025-08-20 12:49] VITALS: BP 120/52; PULSE 91; RESP 16; O2SAT 97; BMI 22.7
== END 2025-08-20 14:12 | disposition home or self-care (01) ==
LOC: HO.HMCC 12:45
PROVIDERS: Visit Provider Nurse Practitioner Family
DX: F41.9 Anxiety disorder, unspecified (principal); F32.A Depression, unspecified

== ENCOUNTER → 2025-08-20 12:45 | Outpatient (BNVA) | payer OTHER, SELFPAY | PROVIDERS: Visit Provider Nurse Practitioner Family | DX: K21.9 Gastro-esophageal reflux disease without esophagitis (principal); F32.A Depression, unspecified; F41.9 Anxiety disorder, unspecified; Z79.899 Other long term (current) drug therapy | CPT/HCPCS: 96127; 99212 ==

== ENCOUNTER 2025-08-28 14:02 | Outpatient (AMB) | payer OTHER, SELFPAY ==
[2025-08-28 14:13] VITALS: BP 144/90; PULSE 82; RESP 16; O2SAT 98; BMI 23.0
--- NOTE | 2025-08-28 14:13 | MHC.PC.OV ---
Vital Signs 08/28/25 14:13 Height 5 ft 8 in Weight 151 lb BMI 23.0 BP 144/90 H Blood Pressure Location Lt brachial Position Sitting Respiration 16 Pulse 82 Pulse Source Pulse Oximeter Pulse Oximetry (%) 98 Oxygen Delivery Method Room Air Intake Visit Reasons: 6 months F/up RE Intake Note: Cross-Taper Schedule: Paroxetine to Sertraline Week 1 -Paroxetine:40mg reduced to 30mg daily -Sertraline:50mg: Start 25mg 1/2 tablet daily for depression/anxiety Week 2 -Paroxetine:20mg daily -Sertraline:50 mg 1tablet Week 3 -Paroxetine 10 mg daily -Continue Sertraline 50mg 1 tablet daily Week 4 -Paroxetine:Stop -Continue Sertraline:50mg 1 tablet daily -Start Hydroxyzine 25mg BID as needed for anxiety -Continue Buspar 5mg tablet BID Health And Wellness Instructor Required: No Accompanied by: Self / Same As Patient Allergies No Known Allergies Allergy (Verified 08/28/25 15:19) Medication List - Last Reconciled 08/28/25 by LISA Evans-FELY buspirone 5 mg PO BID 30 days cholestyramine (with sugar) 4 gram 1 ea PO DAILY diphenoxylate-atropine 2.5-0.025 mg (Lomotil) 3 tabs PO BID PRN 30 days hydrochlorothiazide 25 mg PO DAILY hydroxyzine HCl 25 mg PO BID PRN lisinopril 20 mg PO DAILY loperamide 2 mg PO QID PRN 30 days paroxetine HCl 40 mg PO DAILY sertraline 25 mg PO DAILY simvastatin 20 mg PO DAILY 90 days triamcinolone acetonide 0.1% 1 appl topical BID Tobacco use date assessed: 08/28/25 Fall risk assessment: No Falls in past year Last assessed Fall Risk: 08/28/25 Dental Screening Dental Screen Date: 08/28/25 Did you have a dental visit in the last 12 months?: No Did you have a dental problem in the last 6 months where you did not have access to dental care?: No Was dental information given to patient?: Patient declined HPI 6 months F/up RE HPI Details Chief Complaint The patient presents for a follow-up visit regarding his depression. History of Present Illness The patient is a 70 year old male presenting for a follow-up on his depression. He has a history of high depression and has been on paroxetine for over 20 years. He denies any suicidal or homicidal ideation. Social History - Family Support: The patient has a very supportive family. - Pets: He is looking into getting a barrel inspector tight dog. Health Maintenance Review of Systems - Psychiatric: Reports high depression. Denies suicidal or homicidal ideation. Physical Exam General: Cooperative, healthy appearing, comfortable, no acute distress and well developed Orientation: Patient oriented x3 Limitations: No limitations Head: Normal to inspection Ears: Hearing grossly normal bilaterally Nose: Normal external nose present Face and sinus: Normal facial exam Eyes: Appearance normal, both eyes and all related structures Neck: Normal visual inspection and Yes full ROM Respiratory: Normal respiratory effort and able to speak in complete sentences. Clear to auscultation bilaterally Cardiovascular: Regular rate and rhythm. Normal S1 and S2 GI: Normal to inspection. Soft to palpation and nontender Skin: No rashes or lesions noted Neuro: Patient oriented x3 Extremities: Normal to inspection Results Plan 1. Depression The patient recently saw a psychiatrist and is initiating a medication change for his depression. The plan is to taper down his paroxetine, which he has taken for over 20 years, while titrating up sertraline. He is hopeful about this new treatment plan. He denies suicidal or homicidal ideation. He will follow up with his psychiatrist in one month and will return for a follow-up visit here in December. Discussion Notes I saw the patient for follow-up on his depression, which he was also seen for last week. He reports having a supportive family and denies any suicidal or homicidal ideation. He saw a psychiatrist yesterday, who is planning to taper his paroxetine of 20 years and titrate up sertraline, a plan he is excited about. I reinforced this plan, noting hope for a positive effect. We discussed his follow-up with psychiatry in one month and that I will see him again in December. He is also considering getting a barrel inspector tight dog, which I encouraged. Patient Instructions - Continue to work with your psychiatrist on the plan to slowly stop paroxetine and start sertraline. - Keep your follow-up appointment with your psychiatrist in one month. - Please return to this clinic for a follow-up visit in December. PENDING SALE TO [facility] Medical History Nightmares REM behavioral disorder Hiatal hernia Rotator cuff tear GERD (gastroesophageal reflux disease) Eczema Normochromic normocytic anemia COPD (chronic obstructive pulmonary disease) Anxiety Elevated cholesterol HTN (hypertension) IBS (irritable bowel syndrome) Surgical History History of bone marrow biopsy Hx of hand surgery Hx of umbilical hernia repair History of appendectomy Hx of tonsillectomy Hx of colonoscopy Family History Mother Substance use disorder Mental health disorder Sister Mental health disorder Substance use disorder Social History Housing: House Are you a primary insurance healthcare representative to a significant other at home: No Patient Tobacco Use Status: Former Tobacco user Tobacco use type: Cigarette Years Smoked: 20 e-Cigarette/Vaping Use: Never Used Second Hand Smoke Exposure: No Substance Use Type: Marijuana service: No Current occupational status: retired Cognitive needs: No Hearing needs: No Vision needs: No Questionnaire PHQ-9 Over the last 2 weeks, how often have you been bothered by any of the following problems? 1. Little interest or pleasure in doing things: nearly every day 2. Feeling down, depressed, or hopeless: nearly every day 3. Trouble falling or staying asleep, or sleeping too much: not at all 4. Feeling tired or having little energy: not at all 5. Poor appetite or overeating: not at all 6. Feeling bad about yourself - or that you are a failure or have let yourself or your family down: nearly every day 7. Trouble concentrating on things, such as reading the newspaper or watching television: nearly every day 8. Moving or speaking so slowly that other people could have noticed. Or the opposite - being so fidgety or restless that you have been moving around a lot more than usual: not at all 9. Thoughts that you would be better off or of hurting yourself in some way: not at all Total score: 12 Depression Screening Interpretation: Positive Depression Screening Done: Yes 58187 - PHQ-9 Billing: Yes Source: Developed by Drs. Byron Garcia, Alpa Quijano, Garett Porras and colleagues, with an educational scar from [employer]. Thrive Questionnaire Date Thrive assessed: 12/17/24 I am a: Patient What is your living situation today?: I have a steady place to live Within the past 12 months, did the food you bought not last and you didn't have the money to get more?: Never true Within the past 12 months, did you worry whether your food would run out before you got money to buy more?: Never true Do you have trouble paying for medicines?: No Do you have trouble getting transportation to medical appointments?: No Do you have trouble paying your heating and electricity bill?: No Do you have trouble taking care of your child, family member or friend?: No Do you have trouble with day-to-day activities such as bathing, preparing meals, shopping, managing finances, etc.?: No Are you currently unemployed and looking for a job?: No Are you interested in more education?: No Please select the resources that you would like help with: Food Currently or been in a relationship where the following occur: No concerns reported THRIVE Score: 0 MARJORIE-7 AMB Questionnaire MARJORIE-7 Date MARJORIE - 7 assessed: 08/28/25 Feeling nervous, anxious, or on edge: 3 = Nearly every day Not being able to stop or control worryin = Not at all Worrying too much about different things: 0 = Not at all Trouble relaxin = Nearly every day Being so restless that it is hard to sit still: 0 = Not at all Becoming easily annoyed or irritable: 0 = Not at all Feeling afraid as if something awful might happen: 0 = Not at all Total MARJORIE-7 score (0-4 normal; 5-9 mild; 10-14 moderate; 15-21 severe): 6 Source: Developed by Drs. Byron Garcia, Alpa Quijano, Garett Porras and colleagues, with an educational scar from [employer]. MARJORIE-7 Assessment Billing MARJORIE-7 Assessment Tool: MRAJORIE-7 Assessment 57636 Physical exam (Primary Care) Vital Signs: Last Vital Signs Pulse 82 08/28/25 14:13 Resp 16 08/28/25 14:13 BP 144/90 H 08/28/25 14:13 Pulse Ox 98 08/28/25 14:13 Oxygen Delivery Method Room Air 08/28/25 14:13 BMI result Body Mass Index 23.0 Tobacco/Smoking Status: Tobacco use Status Tobacco use date assessed 08/28/25 08/28/25 14:32 Patient Tobacco Use Status Former Tobacco user 08/28/25 14:13 Tobacco use type Cigarette 08/28/25 14:13 e-Cigarette/Vaping Use Never Used 08/28/25 14:13 PHQ-9: PHQ-9 Score PHQ-9: Total score 12 08/28/25 15:18 Depression Screening Interpretation: Positive Thrive Assessment: Date of Thrive Assessment Date Thrive assessed 12/17/24 08/28/25 14:13 Currently or been in a relationship where the following occur: No concerns reported Coding Level of Care Code Est Pt Level 3 (40334) Diagnoses Depression F32.A Additional Codes MARJORIE-7 Assessment Billing - MARJORIE-7 Assessment Tool: MARJORIE-7 Assessment 09442 ([id number]) PHQ-9 - 94428 - PHQ-9 Billing: Yes ([id number]) Assessment & Plan Assessment & Plan (1) Depression: Code(s): F32.A - Depression, unspecified Category: Medical Plan . Medications: Refilled triamcinolone acetonide 0.1% 1 appl topical BID 80 grams 0RF
== END 2025-08-28 15:35 | disposition home or self-care (01) ==
LOC: HO.HMCC 14:03
PROVIDERS: PCP Nurse Practitioner Family; Visit Provider Nurse Practitioner Family
DX: F32.A Depression, unspecified (principal)

== ENCOUNTER → 2025-08-28 14:02 | Outpatient (BNVA) | payer OTHER, SELFPAY | PROVIDERS: PCP Nurse Practitioner Family; Visit Provider Nurse Practitioner Family | DX: F32.A Depression, unspecified (principal); Z79.899 Other long term (current) drug therapy | CPT/HCPCS: 96127; 99212 ==

== ENCOUNTER 2025-09-16 09:00 | Outpatient (RCR) | payer OTHER, SELFPAY ==
[2025-08-13 10:55] VITALS: BP 170/80; PULSE 80; RESP 16; TEMP 36.4; O2SAT 98
[2025-08-19 09:25] VITALS: BP 144/73; PULSE 95; RESP 18; TEMP 36.6
[2025-08-26 09:10] VITALS: BP 143/66; PULSE 78; RESP 16; TEMP 36.6; O2SAT 98
[2025-09-02 09:16] VITALS: BP 138/69; PULSE 86; RESP 16; TEMP 36.7; O2SAT 96
[2025-09-09 08:47] VITALS: BP 154/77; PULSE 91; RESP 16; TEMP 36.4; O2SAT 97
[2025-09-16 09:10] VITALS: BP 144/70; PULSE 85; RESP 16; TEMP 36.6; O2SAT 97
[2025-09-16 09:18] LABS: Hematocrit 28.2 % (42.0-52.0); Hemoglobin 9.3 g/dl (14.0-18.0); Mean Corpuscular HGB Conc 33.0 g/dl (31.0-36.0); Mean Corpuscular Hemoglobin 29.4 pg (27.0-33.0); Mean Corpuscular Volume 89.2 fL (80.0-98.0); NRBC Abs Auto 0.000 X10*3/uL (0.0-0.012); NRBC Pct Auto 0.0 /100WBC (0.0-0.2); Platelet Count 195 X10*3/uL (160-400); Red Blood Count 3.16 X10*6/uL (4.60-5.80); White Blood Count 6.0 X10*3/uL (4.8-10.8)
[2025-09-16 10:25] LABS: Ferritin 2545 ng/mL (20-250)
== END 2025-09-16 10:00 | disposition home or self-care (01) ==
LOC: HO.INF 09:00
PROVIDERS: Visit Provider Internal Medicine Medical Oncology
DX: D64.9 Anemia, unspecified (principal)
CPT/HCPCS: 36415; 82728; 85027; 96365; 96374; J1756